=== PATIENT | female | born 1970 | race Caucasian/White ===

== ENCOUNTER 2020-03-07 11:36 | Outpatient (CLI) | payer BC, SELFPAY ==
[2020-03-08 14:19] LABS: SARS-CoV-2 RNA PCR Negative
== END 2020-03-07 11:37 | disposition home or self-care (01) ==
LOC: CHSLAB 11:38
PROVIDERS: PCP Family Medicine; Visit Provider Family Medicine
DX: Z20.828 Contact with and (suspected) exposure to other viral communicable diseases (principal)
CPT/HCPCS: 87635; C9803; U0003

== ENCOUNTER 2020-03-10 14:20 | Outpatient (CLI) | payer BC, SELFPAY ==
--- NOTE | ~2020-03-10 | MM_ITS ---
EXAMINATION: MM screening mello BI w edy HISTORY: Screening mammogram TECHNIQUE: Craniocaudal and mediolateral oblique 3-D tomosynthesis images were obtained and synthetic 2-D images were generated. CAD analysis was submitted and interpreted. COMPARISON: 02/27/2018, 12/25/2015, 11/14/2014 bilateral digital screening mammogram examinations BREAST PARENCHYMAL COMPOSITION: There are scattered areas of fibroglandular density. FINDINGS: Stable benign-appearing bilateral axillary tail lymph nodes. There is no evidence of suspic ious mass, calcification, or architectural distortion to suggest malignancy in either breast. There h as been no suspicious interval change. IMPRESSION: 1. No mammographic evidence of malignancy. 2. Recommend routine screening mammography in one year. BI-RADS Category 2: Benign finding(s). Reviewed, dictated and finalized at location A.
== END 2020-03-10 14:21 | disposition home or self-care (01) ==
LOC: ANHIMG 14:24
PROVIDERS: PCP Family Medicine; Visit Provider Nurse Practitioner Obstetrics & Gynecology
DX: Z12.31 Encounter for screening mammogram for malignant neoplasm of breast (principal)
CPT/HCPCS: 77063; 77067

== ENCOUNTER 2020-04-20 10:23 | Outpatient (CLI) | payer BC, SELFPAY ==
[2020-04-21 01:34] LABS: SARS-CoV-2 RNA PCR Negative
== END 2020-04-20 10:24 | disposition home or self-care (01) ==
LOC: CHSLAB 10:30
PROVIDERS: PCP Family Medicine; Visit Provider Family Medicine
DX: R05 Cough (principal); Z20.828 Contact with and (suspected) exposure to other viral communicable diseases
CPT/HCPCS: 87635; C9803; U0003

== ENCOUNTER 2020-06-23 01:54 | Outpatient (CLI) | payer BC, SELFPAY ==
[2020-06-23 19:10] LABS: SARS-CoV-2 RNA PCR Negative
== END 2020-06-23 01:55 | disposition home or self-care (01) ==
LOC: ANHCOVIDDT 01:55
PROVIDERS: PCP Family Medicine; Visit Provider Internal Medicine Gastroenterology
DX: Z01.812 Encounter for preprocedural laboratory examination (principal); Z20.828 Contact with and (suspected) exposure to other viral communicable diseases
CPT/HCPCS: 87635; C9803; U0003

== ENCOUNTER 2020-06-26 00:55 | Day surgery (SDC) | payer BC, SELFPAY ==
[2020-06-19 13:40] VITALS: BMI 36.3
[2020-06-26 06:26] VITALS: BP 131/51; PULSE 76; RESP 16; TEMP 35.8; O2SAT 96
[2020-06-26] MEDS: LACTATED RINGERS 1,000 ML 150 ML IV CONT (06:37)
--- NOTE | 2020-06-26 06:47 | WPDANESEPPF ---
Anes - Initial Pre Proc Eval Procedure: Operation Date: 06/26/20 07:30 Proposed Procedures p Screening Colonoscopy - Helder Velasco MD Date/Time: 06/26/20 06:47 Surgeon: Helder Velasco MD Pre Op Diagnosis: Neoplasm Screening Patient Data Age: 49 Gender: F Height: 1.8 m Weight: 119 kg Last Vital Signs Temp 35.8 C L 06/26/20 06:26 Pulse 76 06/26/20 06:26 Resp 16 06/26/20 06:26 BP 131/51 L 06/26/20 06:26 Pulse Ox 96 06/26/20 06:26 Allergies Allergy/AdvReac Type Severity Reaction Status Date / Time No Known Allergies Allergy Verified 06/26/20 06:25 Home Medications Medication Instructions Recorded Confirmed Type duloxetine 60 mg PO DAILY 06/19/20 06/26/20 History gabapentin 300 mg PO TID 06/19/20 06/26/20 History ibuprofen 800 mg PO Q6H PRN 06/19/20 06/26/20 History naproxen sodium [Aleve] 440 mg PO Q12H PRN 06/19/20 06/26/20 History tramadol See Rx Instructions .ROUTE 06/19/20 06/26/20 History .COMPLEX PRN varenicline [Chantix] 1 mg PO BID 06/19/20 06/26/20 History Patient hx anesthesia problems: none Family hx anesthesia problems: none PMFSH Past Medical History Medical History (Updated 06/26/20 @ 06:48 by Home Hargrove MD) Back pain Depression Obesity Social History Social History Smoking packs per day: 0.75 Smoking cigarettes per day: 15.0 Years smoked: 35 Smoking pack-years: 26.25 Smoking status: Former smoker Tobacco type: cigarettes Alcohol intake: current Drinks per week: 0 Alcohol use details: 2 TIMES PER YEAR Substance use: never Substance use type: does not use Living arrangements: with family Spiritual care concerns: No Anes - Eval Final PreProcedure Day of Procedure 06/26/20 06:47 Patient weight: obese Heart: regular rate and rhythm Lungs: clear to auscultation and normal air movement Airway: Mallampati scale class II Neurological: alert and oriented Last oral intake: >/= 8 hours ASA classification: III Emergent: no Anesthetic plan: proceed Anesthesia type and monitoring: general GIVS Informed Consent: The patient's anesthetic plan and its attendant risks and benefits were discussed with the patient/family/POA. Questions were solicited and answers provided to the satisfaction of the patient/family/POA.
--- NOTE | 2020-06-26 08:14 | WPDGICN ---
Assessment and Plan Assessment and plan (1) Encounter for screening colonoscopy: Code(s): Z12.11 - Encounter for screening for malignant neoplasm of colon Status: Acute Assessment and Plan: At age 49 patient presents for screening colonoscopy. This report follow separately. (2) Obesity: Code(s): E66.9 - Obesity, unspecified Status: Acute (3) Family history of colonic polyps: Code(s): Z83.71 - Family history of colonic polyps Status: Acute Assessment and Plan: Patient reports she bleeds both mother and father have had colon polyps in the past. GI Consult Note Consult date/time: 06/26/20 08:14 HPI: Deana Hannah is a 49 year old femaleSeen in evaluation at the request of Dr Fernandez. patient presents for screening colonoscopy. Because of age 49. She states that her current weight appetite bowel movements are normal. She reports there is a lot of cancer in her family. She thinks the both mother and father may have had colon polyps. Patient denies abdominal pain. She has had no bleeding. Her bowel habits are normal. Review of Systems Review of Systems: All systems reviewed & are unremarkable except as noted in HPI and below PMFSH Past Medical History Medical History (Updated 06/26/20 @ 08:16 by Helder Velasco MD) Back pain Depression Obesity Social History Social History Smoking packs per day: 0.75 Smoking cigarettes per day: 15.0 Years smoked: 35 Smoking pack-years: 26.25 Smoking status: Former smoker Tobacco type: cigarettes Alcohol intake: current Drinks per week: 0 Alcohol use details: 2 TIMES PER YEAR Substance use: never Substance use type: does not use Living arrangements: with family Spiritual care concerns: No Meds Home Medications and Allergies Home Medications Medication Instructions Recorded Confirmed Type duloxetine 60 mg PO DAILY 06/19/20 06/26/20 History gabapentin 300 mg PO TID 06/19/20 06/26/20 History ibuprofen 800 mg PO Q6H PRN 06/19/20 06/26/20 History naproxen sodium [Aleve] 440 mg PO Q12H PRN 06/19/20 06/26/20 History tramadol See Rx Instructions .ROUTE 06/19/20 06/26/20 History .COMPLEX PRN varenicline [Chantix] 1 mg PO BID 06/19/20 06/26/20 History Allergies Allergy/AdvReac Type Severity Reaction Status Date / Time No Known Allergies Allergy Verified 06/26/20 06:25 Vital Signs Vital Signs - 24 hr 06/26/20 06:26 Temperature 96.5 F L Pulse Rate 76 Respiratory Rate 16 Blood Pressure 131/51 L Pulse Oximetry 96 Exam Narrative: Exam Narrative: Physical exam reveals patient to be alert. Vital signs stable. HEENT exam unremarkable. Lungs are clear to auscultation and percussion. Heart is without murmur or extra sounds. abdominal exam is obese. Bowel sounds are present soft nontender with no hepatosplenomegaly. Digital external rectal exam normal.
[2020-06-26 08:16] VITALS: BP 119/73; PULSE 78; RESP 22; O2SAT 100
[2020-06-26 08:26] VITALS: BP 126/81; PULSE 79; RESP 18; O2SAT 96
[2020-06-26 08:36] VITALS: BP 130/91; PULSE 72; RESP 22; O2SAT 98
== END 2020-06-26 08:46 | disposition home or self-care (01) ==
PROVIDERS: PCP Family Medicine; Visit Provider Internal Medicine Gastroenterology
PROC: 0DJD8ZZ Inspection of Lower Intestinal Tract, Via Natural or Artificial Opening Endoscopic (ICD-10-PCS; CPT 45378; principal; 2020-06-26 07:30)
DX: Z12.11 Encounter for screening for malignant neoplasm of colon (principal); K63.5 Polyp of colon; K64.8 Other hemorrhoids; Z83.71 Family history of colonic polyps; Z87.891 Personal history of nicotine dependence; F32.9 Major depressive disorder, single episode, unspecified; E66.9 Obesity, unspecified; Z68.36 Body mass index [BMI] 36.0-36.9, adult
CPT/HCPCS: 45385; 88305; J2704; J7120

== ENCOUNTER → 2020-09-08 15:44 | Outpatient (CLI) | payer BC, SELFPAY ==
--- NOTE | ~2020-09-08 | CT_ITS ---
EXAMINATION: CT facial bones wo con DATE: 09/08/2020 16:04 INDICATION: Left jaw pain TECHNIQUE: Computed tomography (CT) of the facial bones and maxillofacial region was performed withou t intravenous contrast. Automated exposure control and iterative reconstruction technique were employ ed. Exam dose: 348.44 mGy-cm total exam DLP. COMPARISON: None. FINDINGS: There is an approximately 8 x 9 mm polyp or mucous retention cyst of the roof of the left m axillary sinus. The paranasal sinuses and mastoid air cells are otherwise normally developed and aera yrn. No facial fracture. The nasal bones, frontozygomatic sutures, orbital rims and maldonado, zygomatic arche s and remainder the facial bones are intact. No bone destruction is evident. Normal alignment at the temporomandibular joints. There is asymmetric left temporomandibular joint sp barbara narrowing and some articular erosive changes of the left mandibular condyle; otherwise no fractur e, dislocation or bone destruction of the mandible. Status post extraction of a posterior right mandibular molar tooth. IMPRESSION: No facial fracture or bone destruction Asymmetric left temporomandibular joint space narrowing and erosive changes of the head of the left m andibular condyle 9 mm polyp or mucous retention cyst of the medial roof of the left maxillary sinus Reviewed, dictated and finalized at Location A. 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
== END ==
PROVIDERS: PCP Family Medicine; Visit Provider Family Medicine
DX: R68.84 Jaw pain (principal); J32.0 Chronic maxillary sinusitis
CPT/HCPCS: 70486

== ENCOUNTER 2020-11-29 17:00 | Outpatient (CLI) | payer BC, SELFPAY ==
[2020-11-29 18:03] LABS: SARS-CoV-2 RNA PCR Negative (Negative)
== END 2020-11-29 17:01 | disposition home or self-care (01) ==
LOC: CHSLAB 17:03
PROVIDERS: PCP Family Medicine; Visit Provider Family Medicine
DX: R05 Cough (principal); Z20.822 Contact with and (suspected) exposure to COVID-19
CPT/HCPCS: C9803; U0003; U0005

== ENCOUNTER 2021-03-12 11:32 | Outpatient (CLI) | payer BC, SELFPAY ==
--- NOTE | 2021-04-05 16:50 | WPDHOMESLEEP ---
Sleep Study - Home Unattended Date of Study: 03/12/21 Ordering Provider: Kaleb Fernandez MD Interpreting Provider: Vida Gregorio MD Home Sleep Study Type: Apnea Link Air Height: 1.79 m Weight: 111.13 kg Body Mass Index: 34.6 Neck Circumference (inches): 18.5 [place]: 11 Reason for Sleep Study Restless sleep, disturbing dreams Sleep History Deana Hannah is a 50-year-old female who has very poor quality sleep. She wakes frequently during the night. She has disturbing dreams. She takes Benadryl for these problems. She does not feel rested in the morning and she is sleepy throughout the day but she does not feel tired at bedtime. She has chronic back pain that causes her discomfort while sleeping. She went through menopause at age 45 and her sleep worsened after that. 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 She does not awaken from sleep feeling short of breath. She occasionally awakens at night with heartburn, belching or coughing. She frequently snores only rarely loudly enough that others complain. She rarely has trouble sleeping with a cold. She does not wake up gasping for breath during the night. She does not sweat excessively at night. She frequently notices her heart pounding or beating irregularly at night. She rarely falls asleep during the day, never involuntarily never while driving. She does not have loss of muscle tone with strong emotion. She frequently has daytime difficulties due to excessive sleepiness. 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 She does not feel paralyzed on waking or falling asleep. She frequently has vivid dreamlike scenes upon awakening or falling asleep. She does not feel afraid to go to sleep. She constantly has nightmares, constantly remembers her dreams. She frequently has racing thoughts. She occasionally feels sad, depressed and anxious. She occasionally has muscular tension. She occasionally notices parts of her body jerking. She occasionally kicks at night. She rarely has crawling and aching feelings in her legs. She occasionally has leg pain at night. She rarely has morning jaw pain. She occasionally grinds her teeth during sleep. She frequently has bothered by pain during the day, occasionally awakened by pain at night. She frequently wakes up feeling stiff in the morning with sore achy muscles. She rarely wakes up with pain in the neck and spine. She has fatigue and insomnia. She has depression treated with duloxetine. She reports a 30 lb weight loss in the last year. Normal bedtime is between 10:00 p.m. and 11:00 p.m. taking anywhere between 15 minute and 1 hour to fall asleep. She wakes up 4-6 times during the night. When she awakens she may go urinate, get a drink of water and just change her position. It takes her anywhere between 5 minutes and 1 hour to return to sleep. Her morning wake time is 6:30 a.m.. On the weekends, she may go to bed an hour later, between 11:00 p.m. and 12 midnight still awakens at 6:30 a.m.. She estimates getting anywhere between 6 and 9 hours of sleep. She does not take naps. A short nap may be refreshing. She is usually drowsy in the morning for an hour. She feels better in the evening compared to the morning. Habits: Tobacco 1/2 pack per day. Caffeine 2 servings a day. No alcohol or recreational drugs. [facility] Past Medical History Medical History (Updated 04/05/21 @ 17:00 by Vida Gregorio MD) Back pain Depression Obesity Pre-diabetes Surgical History Surgical History (Updated 04/05/21 @ 16:57 by Vida Gregorio MD) Previous back surgery spinal fusion 2018 Status post Status post carpal tunnel release Status post tonsillectomy Social History Social History Smoking packs per day: 0.75 Smoking cigarettes per day: 15.0 Years smoked: 35 Smoking pack-years: 26.25 Smoking status: Former smoker Tobacco type: cigarettes Alcohol intake: current Drinks per week: 0 Al
[2021-04-05 17:04] VITALS: BMI 34.6
== END 2021-03-13 12:00 | disposition home or self-care (01) ==
LOC: ANHCSM 11:33
PROVIDERS: PCP Family Medicine; Visit Provider Family Medicine
DX: G47.33 Obstructive sleep apnea (adult) (pediatric) (principal)
CPT/HCPCS: 95806

== ENCOUNTER 2021-03-29 08:53 | Outpatient (CLI) | payer BC, SELFPAY ==
--- NOTE | ~2021-03-29 | MM_ITS ---
EXAMINATION: MM screening mello BI w edy HISTORY: Screening mammogram TECHNIQUE: Craniocaudal and mediolateral oblique 3-D tomosynthesis images were obtained and synthetic 2-D images were generated. CAD analysis was submitted and interpreted. COMPARISON: 03/10/2020, 02/27/2018, 12/25/2015 bilateral digital screening mammogram examinations BREAST PARENCHYMAL COMPOSITION: The breasts are almost entirely fatty. FINDINGS: Stable axillary tail lymph nodes. There is no evidence of suspicious mass, calcification, o r architectural distortion to suggest malignancy in either breast. There has been no suspicious inter jeannine change. IMPRESSION: 1. No mammographic evidence of malignancy. 2. Recommend routine screening mammography in one year. BI-RADS Category 2: Benign finding(s). Reviewed, dictated and finalized at location A.
== END 2021-03-29 08:54 | disposition home or self-care (01) ==
LOC: ANHIMG 08:56
PROVIDERS: PCP Family Medicine; Visit Provider Nurse Practitioner Obstetrics & Gynecology
DX: Z12.31 Encounter for screening mammogram for malignant neoplasm of breast (principal)
CPT/HCPCS: 77063; 77067

== ENCOUNTER 2021-04-18 21:24 | Emergency (ER) | payer BC, SELFPAY ==
--- NOTE | ~2021-04-18 | XR_ITS ---
EXAMINATION: XR chest 2V DATE: 04/19/2021 04:28 INDICATION: Epigastric pain TECHNIQUE: PA and lateral views of the chest were obtained. COMPARISON: CT abdomen and pelvis dated 04/19/2021 at 12:17 AM FINDINGS: A few scattered linear opacities in the bilateral mid and lower lung zones and favor atelectasis over pneumonia. No pleural effusion or pneumothorax.. The cardiomediastinal silhouette is normal. Mild th oracic spondylosis. IMPRESSION: 1. Mild scattered linear discoid atelectasis in the mid and lower lung zones. Reviewed, dictated and finalized at location A.
--- NOTE | ~2021-04-18 | CT_ITS ---
EXAMINATION: CT abdomen pelvis w con DATE: 04/19/2021 00:24 INDICATION: Epigastric abdominal pain, severe nausea TECHNIQUE: Computed tomography (CT) of the abdomen and pelvis was performed with 100 cc Omnipaque 350 intravenous contrast. Automated exposure control and iterative reconstruction technique were employe d. Exam dose: 1352.64 mGy-cm total exam DLP. COMPARISON: None. FINDINGS: There is minimal atelectasis in the lower lung zones. Normal heart size. No pericardial or pleural effusion. Diffuse hepatic steatosis. No hepatic, splenic, pancreatic, and adrenal or renal space-occupying mass lesion. The gallbladder is present. No bile duct or pancreatic duct dilatation. No urinary tract calculus or hydroureteronephrosis. The urinary bladder and uterus unremarkable. Status post bilateral tubal ligation. Normal caliber of the abdominal aorta. No intraperitoneal or retroperitoneal or pelvic mass lesion or adenopathy or ascites. Normal appendix. No bowel obstruction, bowel wall thickening, pneumatosis or intraperitoneal free air . Status post posterior surgical fusion at L4-5. Severe degenerative disc disease and mild retrolisthes is at L5-S1. No suspicious osteolytic or osteoblastic lesions. IMPRESSION: Diffuse hepatic steatosis Status post bilateral tubal ligation Status post posterior surgical spinal fusion at L4-5 Reviewed, dictated and finalized at Location A. Reviewed, dictated and finalized at location B.
--- NOTE | 2021-04-18 21:27 | ECG_ITS ---
Measurements Intervals [place] Rate: 79 P: 48 NH: 135 QRS: 7 QRSD: 108 T: 32 QT: 371 QTc: 426 Interpretive Statements SINUS RHYTHM BASELINE ARTIFACT- I, II, III, AVR, AVL, AVF, V1, V4-V6 NORMAL ECG Electronically Signed On 04-19-2021 8:25:08 CDT by Paco Amaya D.O.
--- NOTE | 2021-04-18 21:29 | ED.CHESTPAIN ---
HPI - Chest Pain General Chief Complaint: Chest Pain Stated Complaint: chest pain Time Seen by Provider: 04/18/21 21:29 Source: patient Mode of arrival: ambulatory Limitations: no limitations History of Present Illness HPI narrative: 50-year-old woman with a history of type 2 diabetes comes in today complaining upper abdomen and lower chest pain that has been present for less than an hour prior to presentation. She describes it as squeezing. Patient states that it started suddenly while she was at rest. She has some nausea, shortness of breath, and sweatiness. She denies prior similar symptoms and has had no prior cardiac evaluations. She is a former smoker. MD complaint: chest pain Onset (ago): minute(s) (20-30) Timing of current episode: constant and still present Prior episodes: No Onset: during rest Pain location: substernal and epigastric Pain radiation: none Severity: severe Quality: other (Squeezing) Relieving factors: nothing Exacerbating factors: nothing Associated symptoms: nausea, diaphoresis and dyspnea Treatment prior to arrival: none Risk Factors Coronary artery disease risk factors: diabetes and smoking history Thoracic aortic dissection risk factors: none Related Data On Oral Contraceptives: No Home Medications Medication Instructions Recorded Confirmed duloxetine 60 mg PO DAILY 06/19/20 04/18/21 tramadol See Rx Instructions .ROUTE 06/19/20 04/18/21 .COMPLEX PRN gabapentin 600 mg PO TID 04/18/21 04/18/21 hydrocodone-acetaminophen 1 tablet PO TID 04/18/21 04/18/21 metformin 500 mg PO TID 04/18/21 04/18/21 methocarbamol 750 mg PO TID 04/18/21 04/18/21 Allergies Allergy/AdvReac Type Severity Reaction Status Date / Time No Known Allergies Allergy Verified 06/26/20 06:25 Review of Systems Review of Systems: All systems reviewed & are unremarkable except as noted in HPI and below Constitutional: Constitutional: Denies chills and Denies fever(s) Eyes: Eyes: Denies change in vision and Denies photophobia ENT: Denies nasal congestion and Denies sore throat Cardiovascular: Cardiovascular: Reports chest pain and Denies radiating jaw, neck or arm pain Respiratory: Respiratory: Denies cough, Reports dyspnea and Denies wheezing Gastrointestinal: Gastrointestinal: Reports abdominal pain, Denies diarrhea, Reports nausea and Denies vomiting Genitourinary: Genitourinary: Denies nocturia and Denies dysuria Musculoskeletal: Musculoskeletal: Denies back pain, Denies arthralgias and Denies joint swelling Integumentary/Breasts: Skin/Breast: Denies pruritus, Denies erythema and Denies rash Neurologic: Denies vertigo, Denies dizziness, Denies syncope and Denies weakness Allergic/Immunologic: Allergic/Immunologic: Denies lip swelling and Denies throat swelling PMFSH Past Medical History Medical History Back pain Depression Obesity Pre-diabetes Surgical History Surgical History Previous back surgery spinal fusion 2018 Status post Status post carpal tunnel release Status post tonsillectomy Social History Social History Smoking packs per day: 0.75 Smoking cigarettes per day: 15.0 Years smoked: 35 Smoking pack-years: 26.25 Smoking status: Former smoker Tobacco type: cigarettes Alcohol intake: current Drinks per week: 0 Alcohol use details: 2 TIMES PER YEAR Substance use: never Substance use type: does not use Spiritual care concerns: No Exam Const: General: healthy appearing and alert Orientation/consciousness: patient oriented x3 Limitations: no limitations Other: Moderate to severe distress HENMT: Head: normal to inspection Face and sinus: normal facial exam Mouth: Yes moist mucous membranes Throat: posterior oropharynx normal Eyes: Conjunctivae: conjunctivae normal Pupils: Eq
[2021-04-18 21:34] VITALS: BP 160/99; PULSE 90; RESP 24; TEMP 37; O2SAT 100
[2021-04-18] MEDS: ASPIRIN 81 MG CHEWABLE TABLET 324 MG PO (21:51)
[2021-04-18] MEDS: ONDANSETRON INJ 4 MG/2 ML VIAL IV PUSH (21:51)
[2021-04-18] MEDS: HYDROmorphone HCL INJ (*CRX) 2 MG/ML VIAL 0.5 MG IV PUSH (21:51)
[2021-04-18 22:00] VITALS: BP 128/70; PULSE 70; RESP 18; O2SAT 99
[2021-04-18 22:11] LABS: Hematocrit 44.4 % (35.0-49.0); Hemoglobin 14.4 g/dL (12.0-15.0); Mean Corpuscular HGB Conc 32.4 g/dL (32.0-36.0); Mean Corpuscular Hemoglobin 28.2 pg (27.0-31.0); Mean Corpuscular Volume 86.9 fL (78.0-102.0); Mean Platelet Volume 9.8 fl (9.2-11.8); Platelet Count Result 346 K/mm3 (150-420); Red Blood Count 5.11 M/mm3 (4.20-5.40); Red Cell Distribution Width 13.4 % (11.6-14.4); White Blood Count 12.3 K/mm3 (4.8-10.8)
[2021-04-18 22:25] LABS: D Dimer 0.36 mg/L (0.19-0.50)
[2021-04-18 22:27] LABS: Band Neutrophils Percent 0 % (0-6); Basophils Absolute Manual 0.12 K/mm3 (0-0.1); Basophils Percent Manual 1 % (0-1); Eosinophils Absolute Manual 0.49 K/mm3 (0.02-0.5); Eosinophils Percent Manual 4 % (1-6); Lymphocytes Absolute Manual 4.42 K/mm3 (1.1-4.5); Lymphocytes Percent Manual 36 % (18-44); Monocytes Absolute Manual 0.98 K/mm3 (0.1-0.90); Monocytes Percent Manual 8 % (3-9); Neutrophils Absolute Manual 6.27 K/mm3 (1.7-7.2); Neutrophils Percent Manual 51 % (46-73); Platelet Estimate Adequate (Adequate)
[2021-04-18 22:33] LABS: Alanine Aminotransferase 40 U/L (14-59); Albumin Level 3.5 g/dL (3.4-5.0); Alkaline Phosphatase 95 U/L (46-116); Anion Gap 10 mmol/L (8-16); Aspartate Amino Transferase 18 U/L (15-37); Bilirubin,Total 0.2 mg/dL (0.00-1.00); Blood Urea Nitrogen 16 mg/dL (7-18); Calcium 9.5 mg/dL (8.5-10.1); Carbon Dioxide 25 mmol/L (21-32); Chloride 107 mmol/L (98-108); Estimated CRCL calculation 83 ml/min; Estimated Glomerular Filt Rate > 60; Glucose 122 mg/dL (70-99); Lipase 70 U/L (73-393); NT Pro B Type Natriuretic Pept 103 pg/mL (0-125); Osmolality Calculated 296 mOsm/kg (285-295); Potassium 3.9 mmol/L (3.5-5.1); Sodium 142 mmol/L (136-145); Total Protein 6.7 g/dL (6.4-8.2); Troponin I 4.8 ng/L (0.00-60.4)
[2021-04-18 22:39] LABS: SARS-CoV-2 Ag Negative (Negative)
[2021-04-18 22:40] VITALS: BP 131/61; PULSE 85; RESP 16; TEMP 36.6; O2SAT 99
[2021-04-18 23:10] VITALS: BP 110/70; PULSE 74; RESP 18; O2SAT 98
--- NOTE | 2021-04-18 23:49 | PC.NURSE ---
IV infiltrated, EULALIO. leyda applied
[2021-04-18 23:55] VITALS: BP 111/60; PULSE 68; RESP 16; TEMP 36.6; O2SAT 99
--- NOTE | 2021-04-19 00:11 | PC.NURSE ---
new IV LAC #[id number]
[2021-04-19 00:50] LABS: Add Urine Microscopic? YES; Appearance Urine Clear (Clear); Bilirubin Urine Negative (Negative); Blood Urine Negative (Negative); Color Urine Light Yellow (Yellow); Glucose Urine UA Negative (Negative); Ketones Urine Trace (Negative); Leukocyte Esterase Ur Trace LEU/UL (Negative); Nitrate Urine Positive (Negative); Protein Urine Negative (Negative); Specific Grav Ur 1.025 (1.010-1.020); Urobilinogen Urine 0.2 mg/dL (0.2-1.0)
[2021-04-19 00:56] LABS: Bacteria Urine 1+ /hpf; Mucus Urine Rare /lpf; RBC Urine 0-2 /hpf (0-2); Squamous Epithelial Cell Urine Rare /hpf (Few); WBC Urine 16-20 /hpf (0-3)
[2021-04-19 01:34] LABS: Troponin I 6.4 ng/L (0.00-60.4)
[2021-04-19 02:00] VITALS: BP 112/70; PULSE 78; RESP 18; O2SAT 99
[2021-04-19] MEDS: ACETAMINOPHEN 500 MG TABLET 1000 MG PO (02:55)
[2021-04-19 02:57] VITALS: BP 122/70; PULSE 70; RESP 16; TEMP 36.6; O2SAT 99
[2021-04-19 03:47] LABS: Troponin I 6.3 ng/L (0.00-60.4)
--- NOTE | 2021-04-19 04:10 | PC.NURSE ---
reviewing plan of care with patient
[2021-04-19 05:35] VITALS: BP 128/70; PULSE 88; RESP 18; TEMP 36.6; O2SAT 98
== END 2021-04-19 05:44 | disposition home or self-care (01) ==
PROVIDERS: Emergency Provider Emergency Medicine; PCP Family Medicine
DX: R07.89 Other chest pain (principal); R10.13 Epigastric pain; M54.9 Dorsalgia, unspecified; F32.9 Major depressive disorder, single episode, unspecified; R73.03 Prediabetes; Z98.1 Arthrodesis status; Z20.822 Contact with and (suspected) exposure to COVID-19
CPT/HCPCS: 36415; 71046; 74177; 80053; 81001; 83690; 83880; 84484; 85025; 85380; 87077; 87086; 87088; 87186; 87426; 93005; 96374; 96375; 99283; 99284; A9270; C9803; J1170; J2405; Q9967

== ENCOUNTER 2021-07-31 12:14 | Outpatient (CLI) | payer OTHER, SELFPAY ==
[2021-07-31 13:01] LABS: SARS-CoV-2 Ag Negative (Negative)
== END 2021-07-31 12:15 | disposition home or self-care (01) ==
LOC: CHSLAB 12:17
PROVIDERS: PCP Family Medicine; Visit Provider Family Medicine
DX: R05.9 Cough, unspecified (principal); Z20.822 Contact with and (suspected) exposure to COVID-19
CPT/HCPCS: 87426; C9803

== ENCOUNTER → 2021-09-24 09:26 | Outpatient (CLI) | payer OTHER, SELFPAY ==
--- NOTE | ~2021-09-24 | XR_ITS ---
EXAMINATION: XR lumbar spine 2-3V EXAM DATE: 09/24/2021 09:44 INDICATION: Radiculopathy, lumbosacral region . TECHNIQUE: Lumber spine frontal, lateral, lateral L5-S1 projections for interpretation. There is no prior study for comparison. FINDINGS: There is mild lumbar dextro scoliosis. L4-5 posterior fusion hardware. Suspicion of lucenc y surrounding the L5 pedicular screws, evidence of loosening. Moderate to severe disc disease at L5- S1, with a few millimeters of retrolisthesis. There is 2-3 mm retrolisthesis L3 on L4. Mild to modera te disc disease L1-L5. Mild to moderate lumbar facet arthropathy. IMPRESSION: 1. L4-5 posterior fusion with lucency suspected around L5 pedicular screws, could indicate loosening . 2. L5-S1 moderate to severe disc disease. 3. Mild dextroscoliosis. Reviewed, dictated and finalized at location A. LER UPPER IMPRESSION: 1. L4-5 posterior fusion with lucency suspected around L5 pedicular screws, co uld indicate loosening. 2. L5-S1 moderate to severe disc disease. 3. Mild dextroscoliosis.
== END ==
PROVIDERS: PCP Family Medicine; Visit Provider Pain Medicine Interventional Pain Medicine
DX: M47.27 Other spondylosis with radiculopathy, lumbosacral region (principal); M41.9 Scoliosis, unspecified
CPT/HCPCS: 72100

== ENCOUNTER 2021-12-03 10:06 | Emergency (ER) | payer OTHER, SELFPAY ==
[2021-12-03 10:33] VITALS: BP 150/77; PULSE 82; RESP 16; TEMP 36.3; O2SAT 97
--- NOTE | 2021-12-03 10:33 | ED.UPPEXIN ---
HPI - Extremity Injury (Upper) General Chief Complaint: Extremity Injury, Upper Stated Complaint: SHOULDER PAIN Time Seen by Provider: 12/03/21 10:33 History of Present Illness HPI narrative: 50-year-old female patient is here with complaints of pain in the left shoulder that started after she lifted of 15 lb cart above her shoulder level to put in the back of the car yesterday. The patient has had constant nagging pain in the entire shoulder mostly on top and across to the neck area since then. She has tried Tylenol and Aleve but no relief. .Denies any association of numbness or tingling of the hand other than the normal for her carpal Tunnel syndrome. Denies any muscular weakness of the hand or the forearm. Denies any elbow or wrist pain. Patient relates that she has significant arthritis of the back and has had some spinal surgery in the past. Related Data Home Medications Medication Instructions Recorded Confirmed duloxetine 60 mg PO DAILY 06/19/20 12/03/21 tramadol See Rx Instructions .ROUTE 06/19/20 12/03/21 .COMPLEX PRN gabapentin 600 mg PO TID 04/18/21 12/03/21 hydrocodone-acetaminophen 1 tablet PO TID 04/18/21 12/03/21 metformin 500 mg PO TID 04/18/21 12/03/21 methocarbamol 750 mg PO TID 04/18/21 12/03/21 Allergies Allergy/AdvReac Type Severity Reaction Status Date / Time No Known Allergies Allergy Verified 06/26/20 06:25 Review of Systems Review of Systems: All systems reviewed & are unremarkable except as noted in HPI and below Musculoskeletal: Musculoskeletal: Reports no additional musculoskeletal complaints, Denies arthralgias and Denies joint swelling [facility] Past Medical History Medical History Back pain Depression Obesity Pre-diabetes Surgical History Surgical History Previous back surgery spinal fusion 2018 Status post Status post carpal tunnel release Status post tonsillectomy Social History Social History Smoking packs per day: 0.75 Smoking cigarettes per day: 15.0 Years smoked: 35 Smoking pack-years: 26.25 Smoking status: Former smoker Tobacco type: cigarettes Alcohol intake: current Drinks per week: 0 Alcohol use details: 2 TIMES PER YEAR Substance use: never Substance use type: does not use Spiritual care concerns: No Exam Narrative: Alert female patient in moderate discomfort from pain. Vital signs are stable. Patient is afebrile. HEENT is normal. Neck is supple and there is no midline tenderness. Chest wall is nontender. Breath sounds are audible bilaterally. Heart tones are regular. Left shoulder shows no deformity or swelling. The patient seems to be guarding it a little more than usual. She does have somewhat limited range of motion in extension and rotation. There is significant tenderness over the supraspinatus area on palpation. No tenderness over the deltoid. No tenderness along the joint line of the shoulder or the acromioclavicular joint. The rest of the left upper extremity appears to be normal in contour with good range of motion at the elbow and the wrist and at the interphalangeal joints. No distal neurovascular deficit. Course Course Emergency Course: Patient was offered an x-ray of her cervical spine as well as left shoulder however she declines it at this time. The pain management has been discussed with her with the use of ketorolac and a muscle relaxant and she has opted for that. The patient has also been advised to follow-up with the primary care physician or the orthopedist if her pain should persist. Have suggested the patient that she may need an ultrasound at some point to check the status of her muscles surrounding her shoulder joint area especially if the pain persists. She will be discharged home on oral ketorolac 10 mg 3 times a day and me
[2021-12-03] MEDS: KETOROLAC (*BKC) 60 MG/2 ML VIAL IM (10:52)
== END 2021-12-03 11:15 | disposition home or self-care (01) ==
PROVIDERS: Emergency Provider Emergency Medicine; PCP Family Medicine
DX: M25.512 Pain in left shoulder (principal)
CPT/HCPCS: 96372; 99283; A4565; J1885

== ENCOUNTER 2022-01-16 16:09 | Outpatient (CLI) | payer OTHER, SELFPAY ==
[2022-01-16 17:19] LABS: SARS-CoV-2 RNA PCR Positive (Negative)
== END 2022-01-16 16:10 | disposition home or self-care (01) ==
LOC: CHSLAB 16:12
PROVIDERS: PCP Family Medicine; Visit Provider Family Medicine
DX: U07.1 COVID-19 (principal); J06.9 Acute upper respiratory infection, unspecified
CPT/HCPCS: C9803; U0003; U0005

== ENCOUNTER 2022-01-22 11:43 | Emergency (ER) | payer OTHER, SELFPAY ==
--- NOTE | ~2022-01-22 | XR_ITS ---
EXAMINATION: XR chest 1V portable INDICATION: COVID positive, fever and body aches TECHNIQUE: Portable AP chest at 1242 hours COMPARISON: 04/19/2021 FINDINGS: The lungs are free of acute opacities. No pleural effusion or pneumothorax. The cardiomedia stinal silhouette is normal. IMPRESSION: 1. No acute cardiopulmonary abnormality. Reviewed, dictated and finalized at location B.
[2022-01-22 11:47] VITALS: BP 149/70; PULSE 95; RESP 18; TEMP 36.6; O2SAT 97
[2022-01-22 12:22] VITALS: O2SAT 97
--- NOTE | 2022-01-22 12:40 | ED.URI ---
HPI - URI/Sore Throat General Chief Complaint: Upper Respiratory Infection Stated Complaint: COVID positive - cough and fever Time Seen by Provider: 01/22/22 12:22 History of Present Illness HPI Narrative: 51-year-old female presents the emergency room for evaluation of generalized weakness and recent COVID dx. patient states that she received both initial shots and double boosted. Began experiencing generalized weakness, cough and low-grade fevers last week. Patient was seen in her primary care's office last week and was started on Paxlovid. Patient states she now feels worse after taking the antivirals. Related Data Home Medications Medication Instructions Recorded Confirmed duloxetine 30 mg capsule,delayed 60 mg PO DAILY 06/19/20 12/03/21 release tramadol 50 mg tablet See Rx Instructions .Route 06/19/20 12/03/21 .COMPLEX PRN Pain gabapentin 600 mg tablet 600 mg PO TID 04/18/21 12/03/21 hydrocodone 7.5 mg-acetaminophen 1 tablet PO TID 04/18/21 12/03/21 325 mg tablet metformin 500 mg tablet 500 mg PO TID 04/18/21 12/03/21 methocarbamol 750 mg tablet 750 mg PO TID 04/18/21 12/03/21 Allergies Allergy/AdvReac Type Severity Reaction Status Date / Time No Known Allergies Allergy Verified 01/22/22 12:25 Review of Systems Review of Systems: CONSTITUTIONAL: Reports fever, chills, or sweats. EYES: Denies visual changes, redness, or discharge. ENT: Denies rhinorrhea, congestion, sore throat, or otalgia. CARDIOVASCULAR: Denies chest pain, palpitations, or edema. RESPIRATORY: Reports cough GASTROINTESTINAL: Denies abdominal pain, nausea, vomiting, or diarrhea. GENITOURINARY: Denies dysuria or hematuria. SKIN: Denies rash or itching. MUSCULOSKELETAL: Denies back pain, joint pain, or myalgia. NEUROLOGIC: Reports headache, generalized weakness PSYCHIATRIC: Denies anxiety or depression. [facility] Past Medical History Medical History Back pain Depression Obesity Pre-diabetes Surgical History Surgical History Previous back surgery spinal fusion 2018 Status post Status post carpal tunnel release Status post tonsillectomy Social History Social History Smoking packs per day: 0.75 Smoking cigarettes per day: 15.0 Years smoked: 35 Smoking pack-years: 26.25 Smoking status: Former smoker Tobacco type: cigarettes Alcohol intake: current Drinks per week: 0 Alcohol use details: 2 TIMES PER YEAR Substance use: never Substance use type: does not use Spiritual care concerns: No Exam Narrative: GENERAL: Well-appearing, well-nourished, no physical limitations, and in no acute distress. HEAD: Normocephalic, atraumatic. EYES: Conjunctivae normal, PERRLA and EOMI. ENT: External nose normal, Nares clear, no rhinorrhea or epistaxis. Mucous membranes moist. Oropharynx without tonsillar hypertrophy exudate or other lesions. External ears normal, bilateral TMs normal bilaterally CHEST: Clear to auscultation. No respiratory distress. No wheezes rales or rhonchi. No tenderness. HEART: Regular rate and rhythm. No murmur heard. Normal peripheral pulses. BACK: No CVA tenderness; No cervical/thoracic/lumbar tenderness, step-offs, bony abnormality; FROM EXTREMITIES: Normal range of motion. No edema. No clubbing or cyanosis SKIN: Warm, dry, no rash. No noted wounds NEURO: No focal deficits. Alert and oriented x3. MAEW. CN's II-XI intact bilaterally, normal gait PSYCH: Cooperative. Normal mood and affect. Course Vital Signs Vital signs: Vital Signs Temperature 36.6 C 01/22/22 11:47 Pulse Rate 95 01/22/22 11:47 Respiratory Rate 18 01/22/22 11:47 Blood Pressure 149/70 H 01/22/22 11:47 Pulse Oximetry 97 01/22/22 11:47 Oxygen Delivery Room Air 01/22/22 11:47 Temperature 36.6 C 01/22/22 11:47 Pulse Rate 95
== END 2022-01-22 13:36 | disposition home or self-care (01) ==
PROVIDERS: Emergency Provider Nurse Practitioner Family; PCP Family Medicine
DX: U07.1 COVID-19 (principal); R73.03 Prediabetes; E66.9 Obesity, unspecified; Z68.36 Body mass index [BMI] 36.0-36.9, adult; Z79.84 Long term (current) use of oral hypoglycemic drugs
CPT/HCPCS: 71045; 99283

== ENCOUNTER → 2022-01-30 15:36 | Outpatient (CLI) | payer OTHER, SELFPAY ==
--- NOTE | ~2022-01-30 | MR_ITS ---
EXAMINATION: MR lumbar spine wo con DATE: 01/30/2022 16:07 INDICATION: Lumbar radiculopathy TECHNIQUE: Magnetic resonance imaging (MRI) of the lumbar spine was performed without intravenous con trast. Sequences included sagittal T2-weighted FSE, sagittal T2-weighted FS FSE, sagittal T1-weighted FSE, and axial T2-weighted FSE. COMPARISON: Radiographs dated 10/04/2021 FINDINGS: 6 degrees lumbar dextrocurvature. Posterior spinal fusion with bilateral vertical jannet and pedicle scr ew fixation at L4-L5 with 5 mm right lateral listhesis of L4 on L5. 3 mm retrolisthesis L5 on S1. 2 m m retrolisthesis L2 on L3 and L3 on L4. Minimal likely physiologic anterior wedging at T12 and L1. Sm all Schmorl's nodes along both the endplate surrounding the T11-T12, T12-L1 and L1-L2 disc spaces. Ma rrow signal is normal. Moderate left-sided and severe right-sided disc height loss at L5-S1. Mild dis c height loss at T11-T12, L2-L3, L3-L4 and L4-L5. There are annular fissures at L1-L2 through L3-L4. The conus medullaris terminates at L1-L2. There is normal signal in the caudal spinal cord. Mild post operative scarring in the soft tissues posterior to the mid to lower lumbar spine. Paravertebral soft tissues are otherwise unremarkable. The following disc levels are specifically discussed: T12-L1: The disc does not extend beyond the endplate margin. There is mild to moderate bilateral face t joint osteoarthritis. There is no neural foraminal stenosis. There is no central canal stenosis. L1-L2: Disc is mildly bulging with superimposed annular fissure and small central disc extrusion with disc material extending couple millimeters cephalad and caudal to the level of the endplates. There is mild bilateral facet joint osteoarthritis. There is no neural foraminal stenosis. There is mild ce ntral canal stenosis. L2-L3: Disc is mildly bulging. There is mild bilateral facet joint osteoarthritis. There is mild bila teral neural foraminal stenosis. There is mild central canal stenosis. L3-L4: Disc is mildly bulging. There is mild to moderate bilateral facet joint osteoarthritis. There is moderate left and mild to moderate right neural foraminal stenosis. There is mild central canal st enosis. L4-L5: Disc is mildly bulging. Posterior spinal fusion including posterior decompression with bilater al hemilaminotomies and resection of the ligamentum flavum on both the left and right. There is mild left and mild to moderate right neural foraminal stenosis. There is no central canal stenosis. L5-S1: Disc is mildly bulging. There is mild left and mild to moderate right facet joint osteoarthrit is. There is mild left and moderate right neural foraminal stenosis. There is no central canal stenos is. IMPRESSION: 1. Mild lumbar dextrocurvature with moderate spondylosis. 2. L4-L5 with suture decompression and instrumented posterior spinal fusion. Reviewed, dictated and finalized at location B.
== END ==
PROVIDERS: PCP Pain Medicine Interventional Pain Medicine; Visit Provider Pain Medicine Interventional Pain Medicine
DX: M47.817 Spondylosis without myelopathy or radiculopathy, lumbosacral region (principal); M48.07 Spinal stenosis, lumbosacral region; Z98.1 Arthrodesis status
CPT/HCPCS: 72148

== ENCOUNTER → 2022-04-18 10:46 | Outpatient (CLI) | payer OTHER, SELFPAY ==
--- NOTE | ~2022-04-18 | XR_ITS ---
EXAMINATION: XR toe 1st RT min 2V INDICATION: Right first toe pain TECHNIQUE: Two views of the right first toe are obtained. COMPARISON: None available FINDINGS: No displaced fracture is identified. There is mild osteoarthritis at the first metatarsopha langeal joint as well as the visualized interphalangeal joints. The soft tissues are unremarkable. IMPRESSION: 1. No definite fracture identified. Reviewed, dictated and finalized at location A.
== END ==
PROVIDERS: PCP Family Medicine; Visit Provider Family Medicine
DX: M19.071 Primary osteoarthritis, right ankle and foot (principal)
CPT/HCPCS: 73660

== ENCOUNTER 2022-05-20 09:52 | Outpatient (CLI) | payer OTHER, SELFPAY ==
--- NOTE | 2022-05-20 11:15 | NEURO_ITS ---
Impression: # Complains of numbness of hands. # Mild ulnar neuropathy across the elbows, right more than left. # Normal needle/EMG exam. # Clinical correlation recommended. Motor Nerve Conduction Upper Extremities Median Nerve Conduction Velocity (m/sec) Terminal Latency (msec) Response Voltage(mV) Elbow-Wrist Wrist Elbow Wrist Right 55 3.2 4 5 Left 57 2.8 5 5 Ulnar Nerve Conduction Velocity (m/sec) Terminal Latency (msec) Response Voltage(mV) Above Elbow Beow Elbow Wrist Above Elbow Below Elbow Wrist Right 48 54 2.5 5 6 6 Left 52 53 2.8 4 3 5 F-Wave Latency Median (ms) Ulnar (ms) Right 29.5 30.4 Left 30.2 30.2 Sensory Nerve Conduction Upper Extremities Median Nerve Stimulation Terminal Latency (msec) Wrist/Digit Response Voltage (uV) Wrist Right 3.1/3.1 69/68 Left 3.0/2.9 45/50 Ulnar Nerve Stimulation Terminal Latency (msec) Wrist/Digit Response Voltage (uV) Wrist Right 2.5 54 Left 2.6 64 Radial Nerve Terminal Latency (msec) Response Voltage(mV) Right 2.3 12 Left 1.9 6 Left Right Muscles Examined Fibrillation Fasciculation Scarcity Voltage Duration Left Right Left Right Left Right Left Right Left Right Deltoid Biceps X X Brachioradialis Triceps X X Pronator Teres X X Ext Indicis X X Ext Digitorum X X Abd Poll Brev X X 1st Dorsal Interosseus Paraspinals MTDD
== END 2022-05-20 09:53 | disposition home or self-care (01) ==
LOC: ANHNEURO 09:55
PROVIDERS: PCP Family Medicine; Visit Provider Family Medicine
DX: G56.23 Lesion of ulnar nerve, bilateral upper limbs (principal)
CPT/HCPCS: 95886; 95911

== ENCOUNTER → 2022-05-23 09:27 | Outpatient (CLI) | payer OTHER, SELFPAY ==
--- NOTE | ~2022-05-23 | XR_ITS ---
EXAMINATION: XR thoracic spine 3V DATE: 05/23/2022 09:41 INDICATION: 6 months of mid back pain TECHNIQUE: One AP, lateral and lateral swimmer's views of the thoracic spine were obtained. COMPARISON: Lumbar spine MR dated 01/30/2022 FINDINGS: Alignment is normal. Unchanged minimal likely physiologic anterior wedging at T11-L1. Multilevel mild to moderate disc height loss throughout the thoracic spine. Visualized portions of the lungs are randa ar. No pneumothorax or pleural effusion. Cardiomediastinal silhouette is normal. IMPRESSION: 1. Moderate thoracic spondylosis. Reviewed, dictated and finalized at location B.
== END ==
PROVIDERS: PCP Family Medicine; Visit Provider Family Medicine
DX: R07.9 Chest pain, unspecified (principal); M47.894 Other spondylosis, thoracic region
CPT/HCPCS: 72072

== ENCOUNTER 2022-05-27 05:24 | Observation (INO) | payer OTHER, SELFPAY ==
--- NOTE | ~2022-05-27 | US_ITS ---
EXAMINATION: US abdomen limited DATE: 05/29/2022 08:25 INDICATION: Elevated liver function tests TECHNIQUE: Multiple grayscale and Doppler ultrasound images of the abdomen were obtained. COMPARISON: CT dated 05/27/2022 FINDINGS: The pancreatic head and body are normal in appearance. The pancreatic tail is not visualized. Liver has normal contour, with a smooth surface. There is increased parenchymal echogenicity and coarsened echotexture consistent with diffuse hepatic steatosis. 2.5 x 1.4 cm hypoechoic lesion along the gallb ladder fossa most likely focal hepatic sparing but would correlate with planned subsequent MRI. No i ntrahepatic biliary duct dilation suspected. Portal venous flow was seen in the hepatopetal, normal d irection and has normal Doppler waveform. Numerous shadowing gallstones within the otherwise normal-a ppearing gallbladder with no dilation or wall thickening. The common bile duct measures 6 mm in maxim al diameter. Sonographic Hightower sign was reported as negative by the assessment expert. IMPRESSION: 1. Cholelithiasis. No findings to suggest acute cholecystitis or intra or extra hepatic biliary ducta l dilation. Reviewed, dictated and finalized at location A. ICAL QUALITY MANAGER IMPRESSION: 1. Cholelithiasis. No findings to suggest acute cholecystitis or intra or extra hepatic biliary ductal dilation.
--- NOTE | ~2022-05-27 | CT_ITS ---
EXAMINATION: CT abdomen pelvis wo con DATE: 05/27/2022 07:10 INDICATION: Upper abdominal pain with nausea and vomiting TECHNIQUE: Computed tomography (CT) of the abdomen and pelvis was performed without intravenous contr ast. Automated exposure control and iterative reconstruction technique were employed. The dose-length product was 1392.75 mGy-cm. COMPARISON: None FINDINGS: Mild bibasilar atelectasis. /Inferior heart is normal. No pericardial or pleural effusion. Somewhat h eterogeneous diffuse hepatic steatosis. Tiny hepatic calcific location consistent with old granulomat ous disease. Gallbladder, spleen, pancreas, bilateral adrenal glands and kidneys are normal. Bowels a re normal. Bladder, anteverted uterus and bilateral adnexa are normal. Bilateral tubal ligation rings . No free intraperitoneal gas or fluid. No pathologically enlarged abdominal or pelvic lymphadenopath y. Severe lumbosacral spondylosis with mild to moderate spondylosis more cephalad lumbar and lower th oracic spine. L4 partial laminectomy with L4-L5 posterior spinal fusion with bilateral vertical jannet a nd pedicle screw fixation. IMPRESSION: 1. No acute intra-abdominal/pelvic process. 2. Diffuse hepatic steatosis. Reviewed, dictated and finalized at location A. 'S GARMENT FITTER
[2022-05-27 05:24] VITALS: BP 168/83; PULSE 91; RESP 20; TEMP 36.2; O2SAT 98
[2022-05-27 06:24] LABS: Basophils Absolute Auto 0.06 K/mm3 (0.00-0.10); Basophils Percent Auto 0.4 % (0.0-1.0); Eosinophils Absolute Auto 0.11 K/mm3 (0.02-0.50); Eosinophils Percent Auto 0.7 % (1.0-6.0); Hemoglobin 14.1 g/dL (12.0-15.0); Immature Granulocyte Absolute 0.07 K/mm3 (0.00-0.00); Immature Granulocyte Percent A 0.4 % (0.0-0.0); Lymphocytes Absolute Auto 2.37 K/mm3 (1.10-4.50); Lymphocytes Percent Auto 14.2 % (18.0-42.0); Mean Corpuscular HGB Conc 32.8 g/dL (32.0-36.0); Mean Corpuscular Hemoglobin 28.6 pg (27.0-31.0); Mean Corpuscular Volume 87.2 fL (78.0-102.0); Mean Platelet Volume 9.8 fl (9.2-11.8); Monocytes Absolute Auto 1.01 K/mm3 (0.10-0.90); Neutrophils Absolute Auto 13.1 K/mm3 (1.7-7.2); Neutrophils Percent Auto 78.3 % (50.0-70.0); Platelet Count Result 376 K/mm3 (150-420); Red Blood Count 4.93 M/mm3 (4.20-5.40); Red Cell Distribution Width 13.4 % (11.6-14.4); White Blood Count 16.7 K/mm3 (4.8-10.8)
[2022-05-27] MEDS: SODIUM CHLORIDE 0.9% IV 500 ML 999 ML IV CONT (06:24)
[2022-05-27] MEDS: ONDANSETRON INJ 4 MG/2 ML VIAL IV PUSH ×2 (06:27→13:08)
[2022-05-27] MEDS: MORPHINE SULFATE (*CRX) 4 MG/ML INJ 2 MG IV PUSH (06:28)
[2022-05-27] MEDS: PANTOPRAZOLE SODIUM IV 40 MG VIAL IV PUSH (06:30)
[2022-05-27 06:40] LABS: Alanine Aminotransferase 361 U/L (14-59); Albumin Level 3.8 g/dL (3.4-5.0); Alkaline Phosphatase 169 U/L (46-116); Anion Gap 10 mmol/L (8-16); Aspartate Amino Transferase 71 U/L (15-37); Bilirubin,Total 0.6 mg/dL (0.00-1.00); Blood Urea Nitrogen 11 mg/dL (7-18); Calcium 9.5 mg/dL (8.5-10.1); Carbon Dioxide 24 mmol/L (21-32); Chloride 103 mmol/L (98-108); Estimated CRCL calculation 106 ml/min; Estimated Glomerular Filt Rate > 60; Glucose 184 mg/dL (70-99); Lipase 566 U/L (73-393); Osmolality Calculated 288 mOsm/kg (285-295); Potassium 3.9 mmol/L (3.5-5.1); Sodium 137 mmol/L (136-145); Total Protein 7.7 g/dL (6.4-8.2)
[2022-05-27 06:42] LABS: Add Urine Microscopic? NO; Appearance Urine Clear (Clear); Bilirubin Urine Negative (Negative); Blood Urine Negative (Negative); Color Urine Yellow (Yellow); Glucose Urine UA Negative (Negative); Ketones Urine Negative (Negative); Leukocyte Esterase Ur Negative LEU/UL (Negative); Nitrate Urine Negative (Negative); Protein Urine Negative (Negative)
[2022-05-27 06:43] LABS: Lactic Acid Reflex 1.2 mmol/L (0.4-2.0)
--- NOTE | 2022-05-27 06:58 | ED.ABDPAIN ---
HPI - Abdominal Pain General Chief Complaint: Abdominal Pain <Jordan Mao MD - Last Filed: 06/01/22 07:51> Stated Complaint: lower back pain <Jordan Mao MD - Last Filed: 06/01/22 07:51> Time Seen by Provider: 05/27/22 05:27 <Jordan Mao MD - Last Filed: 06/01/22 07:51> Source: patient and RN notes reviewed <Jordan Mao MD - Last Filed: 06/01/22 07:51> Mode of arrival: ambulatory <Jordan Mao MD - Last Filed: 06/01/22 07:51> Limitations: no limitations <Jordan Mao MD - Last Filed: 06/01/22 07:51> History of Present Illness MD elicited complaint: abdominal pain (epigastric x 3 days and mild GRAY x this AM.) <Jordan Mao MD - Last Filed: 06/01/22 07:51> Pertinent past history: other (abdominal pain) <Jordna Mao MD - Last Filed: 06/01/22 07:51> Onset (ago): day(s) (3) <Jordan Mao MD - Last Filed: 06/01/22 07:51> Pain Consistency: constant and colicky <Jordan Mao MD - Last Filed: 06/01/22 07:51> Location: epigastric <Jordan Mao MD - Last Filed: 06/01/22 07:51> Severity: moderate <Jordan Mao MD - Last Filed: 06/01/22 07:51> Pain scale (0-10): 7 <Jordan Mao MD - Last Filed: 06/01/22 07:51> Quality: cramping, aching and dull <Jordan Mao MD - Last Filed: 06/01/22 07:51> Radiation: back <Jordan aMo MD - Last Filed: 06/01/22 07:51> Migration to: no migration <Jordan Mao MD - Last Filed: 06/01/22 07:51> Exacerbating factors: nothing <Jordan Mao MD - Last Filed: 06/01/22 07:51> Associated symptoms: nausea and vomiting <Jordan Mao MD - Last Filed: 06/01/22 07:51> Related Data Patient : No <Jordan Mao MD - Last Filed: 06/01/22 07:51> Home Medications: Home Medications Medication Instructions Recorded Confirmed duloxetine 30 mg capsule,delayed 60 mg PO DAILY 06/19/20 05/27/22 release tramadol 50 mg tablet See Rx Instructions .Route 06/19/20 05/27/22 .COMPLEX PRN Pain gabapentin 600 mg tablet 600 mg PO TID 04/18/21 05/27/22 hydrocodone 7.5 mg-acetaminophen 1 tablet PO TID 04/18/21 05/27/22 325 mg tablet metformin 500 mg tablet 500 mg PO TID 04/18/21 05/27/22 <Jordan Mao MD - Last Filed: 06/01/22 07:51> Allergies/Adverse Reactions: Allergies Allergy/AdvReac Type Severity Reaction Status Date / Time No Known Allergies Allergy Verified 05/27/22 05:30 <Jordan Mao MD - Last Filed: 06/01/22 07:51> Review of Systems Review of Systems: All systems reviewed & are unremarkable except as noted in HPI and below <Jordan Mao MD - Last Filed: 06/01/22 07:51> Constitutional: Constitutional: Reports no additional constitutional complaints <Jordan Mao MD - Last Filed: 06/01/22 07:51> Eyes: Eyes: Reports no additional eye complaints <Jordan Mao MD - Last Filed: 06/01/22 07:51> ENT: Reports system reviewed and no additional complaints, except as documented <Jordan Mao MD - Last Filed: 06/01/22 07:51> Cardiovascular: Cardiovascular: Reports no additional cardiovascular complaints <Jordan Mao MD - Last Filed: 06/01/22 07:51> Respiratory: Respiratory: Reports no additional respiratory complaints <Jordan Mao MD - Last Filed: 06/01/22 07:51> Gastrointestinal: Gastrointestinal: Reports no additional gastrointestinal complaints, Reports abdominal pain, Reports nausea and Reports vomiting <Jordan Mao MD - Last Filed: 06/01/22 07:51> Genitourinary: Genitourinary: Reports no additional female genitourinary complaints <Jordan Mao MD - Last Filed: 06/01/22 07:51> Musculoskeletal: Musculoskeletal: Reports no additional musculoskeletal complaints <Jordan Mao MD - Last Filed: 06/01/22 07:51> Integumentary/Breasts: Skin/Breast: Reports system reviewed and no a
[2022-05-27 08:52] VITALS: BP 166/78; PULSE 88; RESP 18; TEMP 36.8; O2SAT 96
[2022-05-27] MEDS: MORPHINE SULFATE (*CRX) 2 MG/ML INJ IV PUSH ×3 (09:17→20:35)
[2022-05-27] MEDS: DULoxetine HCL 30 MG CAPSULE.DR 60 MG PO (09:18)
[2022-05-27] MEDS: ENOXAPARIN 40 MG/0.4 ML SYRINGE SUB-Q (09:18)
[2022-05-27] MEDS: GABAPENTIN 300 MG CAPSULE 600 MG PO ×3 (09:18→17:06)
[2022-05-27] MEDS: DEXTROSE 5%/0.9% SOD CHL 1,000 ML 100 ML IV CONT ×2 (09:19→20:34)
--- NOTE | 2022-05-27 10:49 | PC.NURSE ---
Pt admitted to room 205 from ED. She is AO/3. She is having abdominal pain, roma Nausea or Vomiting. She walked to the bed unaided gait is steady. Rn instructed the pt regarding the call light, TV and visitor policy. Pt verbalized understanding.
[2022-05-27 10:59] VITALS: BMI 37.6
[2022-05-27 11:45] LABS: Glucose Point of Care 177 mg/dl (65-105)
[2022-05-27 15:03] VITALS: PULSE 90
[2022-05-27 16:00] VITALS: BP 158/70; PULSE 90; RESP 16; TEMP 36.6; O2SAT 98
--- NOTE | 2022-05-27 16:00 | PC.NURSE ---
PT SLEEPING SOUNDLY, NO DISTRESS NOTED, RESP EVEN AND UNLABORED, IVF INFUSING ORDERED, CALL LIGHT IN REACH.
[2022-05-27] MEDS: HYDROcodone/acetaminophen (*CRX) 5-325 MG TABLET 1 TAB PO (17:06)
[2022-05-27 19:16] LABS: Glucose Point of Care 154 mg/dl (65-105)
[2022-05-27 20:00] VITALS: PULSE 89; PULSE 91; RESP 16; O2SAT 95
[2022-05-28] VITALS: BP 122/77; PULSE 87; PULSE 88; RESP 16; TEMP 37.7; O2SAT 91
[2022-05-28 00:04] VITALS: TEMP 37.7
[2022-05-28] MEDS: ACETAMINOPHEN 325 MG TABLET 650 MG PO ×2 (00:04→07:14)
[2022-05-28 00:08] LABS: Glucose Point of Care 179 mg/dl (65-105)
[2022-05-28 01:00] VITALS: TEMP 37.2
[2022-05-28] MEDS: MORPHINE SULFATE (*CRX) 2 MG/ML INJ IV PUSH ×3 (03:52→20:17)
[2022-05-28 04:00] VITALS: PULSE 86
--- NOTE | 2022-05-28 04:15 | PC.NURSE ---
Patient called for nurse. Stated pain had not been relieved by morphine, and in fact had increased. Complains of increasing pain in mid to lower back. States has had previous back problems, but feels this is related to abdominal pain. Given warm blankets along back, with pillow placed to prop back up as patient is lying on her side. Patient given norco 5-325 and robaxin in attempt to alleviate the pain.
[2022-05-28] MEDS: HYDROcodone/acetaminophen (*CRX) 5-325 MG TABLET 1 TAB PO ×2 (04:28→13:17)
[2022-05-28] MEDS: methocarbamoL 750 MG TABLET PO (04:30)
[2022-05-28 06:11] LABS: Glucose Point of Care 157 mg/dl (65-105)
[2022-05-28 07:40] LABS: Hematocrit 38.6 % (35.0-49.0); Hemoglobin 12.7 g/dL (12.0-15.0); Mean Corpuscular HGB Conc 32.9 g/dL (32.0-36.0); Mean Corpuscular Hemoglobin 29.1 pg (27.0-31.0); Mean Corpuscular Volume 88.5 fL (78.0-102.0); Mean Platelet Volume 9.9 fl (9.2-11.8); Platelet Count Result 295 K/mm3 (150-420); Red Blood Count 4.36 M/mm3 (4.20-5.40); Red Cell Distribution Width 13.4 % (11.6-14.4); White Blood Count 17.9 K/mm3 (4.8-10.8)
[2022-05-28 07:55] LABS: Alanine Aminotransferase 195 U/L (14-59); Albumin Level 3.2 g/dL (3.4-5.0); Alkaline Phosphatase 127 U/L (46-116); Anion Gap 7 mmol/L (8-16); Aspartate Amino Transferase 20 U/L (15-37); Bilirubin,Total 0.6 mg/dL (0.00-1.00); Blood Urea Nitrogen 8 mg/dL (7-18); Calcium 9.1 mg/dL (8.5-10.1); Carbon Dioxide 24 mmol/L (21-32); Chloride 103 mmol/L (98-108); Estimated CRCL calculation 137 ml/min; Estimated Glomerular Filt Rate > 60; Glucose 150 mg/dL (70-99); Lipase 148 U/L (73-393); Osmolality Calculated 279 mOsm/kg (285-295); Potassium 3.7 mmol/L (3.5-5.1); Sodium 134 mmol/L (136-145); Total Protein 6.8 g/dL (6.4-8.2)
[2022-05-28 08:00] VITALS: BP 134/56; PULSE 78; RESP 18; TEMP 36.7; O2SAT 97
[2022-05-28 08:16] LABS: Glucose Point of Care 135 mg/dl (65-105)
[2022-05-28] MEDS: GABAPENTIN 300 MG CAPSULE 600 MG PO ×3 (08:37→16:46)
[2022-05-28] MEDS: DULoxetine HCL 30 MG CAPSULE.DR 60 MG PO (08:37)
[2022-05-28] MEDS: ENOXAPARIN 40 MG/0.4 ML SYRINGE SUB-Q (08:37)
[2022-05-28] MEDS: PANTOPRAZOLE SODIUM IV 40 MG VIAL IV PUSH (08:38)
--- NOTE | 2022-05-28 08:45 | PM.IMHP ---
H&P: HPI History of Present Illness Date/Time: 05/28/22 08:45 Chief Complaint: Abdominal pain, back pain Narrative: this is a 51-year-old female who presented to our emergency department with complaints of back pain and abdominal pain with nausea. Patient has a past medical history of abdominal pain, back pain, depression, obesity., pancreatitis and prediabetes. according to patient approximately 6 months ago she experienced abdominal pain with chest pain. patient's cardiac testing negative for [place] patient was given Zofran symptoms resolved and she was discharged home. patient recently visited her primary care physician labs indicated LFT. patient notes that she has been having intermitted abdominal pain. Patient notes that the abdominal pain usually resolves on its own. Patient notes that when her pain did not resolve on its own she proceeded to arm urgency department.patient was ordered a ultrasound which was scheduled for today by her primary care physician. unable to be completed due none in p.o. status. patient was admitted for possible pancreatic due to elevated lipase WBCs 16.7, hemoglobin 14.1, hematocrit 43.0, platelets 376, BUN 11, creatinine 0.73, sodium 137, potassium 3.9, BUN 11 creatinine 0.73 glucose 184 lactic acid 1.2 total bilirubin 0.6 AST 71 ALT 361 alkaline phosphatase 169 [address]ase [address] of the abdomen pelvis and spine no acute findings, EKG sinus rhythm with a heart rate of 79. The patient denies SOB, CP, palpitation, extremity numbness, lightheadedness, dizziness, constipation, diarrhea, chills, or fever. patient continues to complain of bilateral upper quadrant pain with some nausea. she was able to tolerate her breakfast today. spoke with her primary care physician Dr. Bruce hemphill and recommended the patient see a GI specialist for a possible ERCP. Review of Systems Review of Systems: A 14 organ system Review of Systems was performed and pertinent positives included in the HPI, otherwise remaining ROS is negative. [facility] Past Medical History Medical History (Updated 05/28/22 @ 09:23 by TEDDY Henderson) Abdominal pain Back pain Depression Obesity Pancreatitis Pre-diabetes Surgical History Surgical History Previous back surgery spinal fusion 2018 Status post Status post carpal tunnel release Status post tonsillectomy Social History Social History Smoking packs per day: 1 Smoking cigarettes per day: 20.0 Years smoked: 20 Smoking pack-years: 20.00 Smoking status: Former smoker Tobacco type: cigarettes Second hand tobacco smoke exposure: No Alcohol intake: never Drinks per week: 0 Alcohol use details: 2 TIMES PER YEAR Substance use: never Substance use type: does not use Has the Lack of Transportation Kept You From Medical Appointments or From Getting Medications?: No Within the Past 12 Months, Were You Worried Whether Your Food Would Run Out Before You Got Money to Buy More?: Never True What is Your Housing Situation Today?: I Have Housing Are You Worried That in the Next 2 Months, You May Not Have Your Own Housing to Live In?: No Do You Have Trouble Paying Your Heating Or Electricity Bill?: No Do You Have Trouble Paying For Medicines?: No Are You Currently Unemployed and Looking for Work?: No Highest Level of Education Completed: High School Diploma/GED Do You Have Trouble With Childcare or the Care of a Family Member?: No Spiritual care concerns: No Meds Home Medications and Allergies Home Medications Medication Instructions Recorded Confirmed Type duloxetine 30 mg capsule,delayed 60 mg PO DAILY 06/19/20 05/27/22 History release tramadol 50 mg tablet See Rx Instructions .Route 06/19/20 05/27/22 History .COMPLEX PRN Pain gabapentin 600 mg tablet 600 mg PO TID 04/18/21 05/27/22 History hydrocodo
--- NOTE | 2022-05-28 10:40 | PC.NURSE ---
0900 tele stopped at this time and patches removed.
[2022-05-28 11:30] LABS: Glucose Point of Care 150 mg/dl (65-105)
[2022-05-28 16:00] VITALS: BP 112/60; PULSE 72; RESP 16; TEMP 36.8; O2SAT 95
[2022-05-28 16:49] LABS: Glucose Point of Care 116 mg/dl (65-105)
--- NOTE | 2022-05-28 18:02 | PC.NURSE ---
pt up to shower, does not want any pain medicine at this time, dinner tray removed
[2022-05-28] MEDS: DOCUSATE SODIUM 100 MG CAPSULE PO (20:17)
[2022-05-28 20:18] LABS: Glucose Point of Care 147 mg/dl (65-105)
[2022-05-29] VITALS: BP 103/64; PULSE 78; RESP 20; TEMP 36.1; O2SAT 93
--- NOTE | 2022-05-29 00:15 | PC.NURSE ---
Pt resting quietly in bed and states she has pain in her abdomen and rates it a '7' on a 1-10 pain scale; Pt given morphine 2 mg IVP to relieve c/o abdominal pain. Pt told she is NPO for ct scan and ultra sound of the abdomen in the AM and she voices her understanding. Pt doesnt voice any c/o nausea or vomiting at this time.
[2022-05-29] MEDS: MORPHINE SULFATE (*CRX) 2 MG/ML INJ IV PUSH (00:21)
[2022-05-29 01:20] VITALS: TEMP 36.1
--- NOTE | 2022-05-29 01:20 | PC.NURSE ---
Pt sitting up at bedside; Pt rates her pain as a '2' on a 1-10 pain scale. She states her pain is mostly in the left upper quadrant of her abdomen and radiating to the left side of her back. Pt voided 550 ml of clear, medium drea urine.
--- NOTE | 2022-05-29 03:16 | PC.NURSE ---
Pt asleep and no signs of discomfort noted; 100 mls of clear, yellow urine emptied from hat.
--- NOTE | 2022-05-29 05:14 | PC.NURSE ---
Lab is here drawing blood on patient.
[2022-05-29 05:22] LABS: Hematocrit 38.3 % (35.0-49.0); Hemoglobin 12.2 g/dL (12.0-15.0); Mean Corpuscular HGB Conc 31.9 g/dL (32.0-36.0); Mean Corpuscular Hemoglobin 28.8 pg (27.0-31.0); Mean Corpuscular Volume 90.5 fL (78.0-102.0); Mean Platelet Volume 9.8 fl (9.2-11.8); Platelet Count Result 318 K/mm3 (150-420); Red Blood Count 4.23 M/mm3 (4.20-5.40); Red Cell Distribution Width 13.2 % (11.6-14.4); White Blood Count 13.5 K/mm3 (4.8-10.8)
[2022-05-29 06:04] LABS: Iron 17 ug/dL (50-170); Percent Iron Saturation 7 % (12-57)
[2022-05-29 06:15] LABS: Alanine Aminotransferase 138 U/L (14-59); Albumin Level 3.1 g/dL (3.4-5.0); Alkaline Phosphatase 118 U/L (46-116); Anion Gap 8 mmol/L (8-16); Aspartate Amino Transferase 11 U/L (15-37); Bilirubin Direct 0.2 mg/dL (0-0.2); Bilirubin Indirect 0.3 mg/dL (0-1.0); Bilirubin,Total 0.5 mg/dL (0.00-1.00); Blood Urea Nitrogen 11 mg/dL (7-18); Calcium 9.3 mg/dL (8.5-10.1); Carbon Dioxide 27 mmol/L (21-32); Chloride 104 mmol/L (98-108); Estimated CRCL calculation 109 ml/min; Estimated Glomerular Filt Rate > 60; Ferritin 305 ng/mL (8-252); Glucose 107 mg/dL (70-99); Osmolality Calculated 287 mOsm/kg (285-295); Potassium 3.7 mmol/L (3.5-5.1); Sodium 139 mmol/L (136-145); Total Protein 6.8 g/dL (6.4-8.2); Vitamin B12 706 pg/mL (193-986)
[2022-05-29 06:20] LABS: Ammonia < 10 umol/L (11-32)
[2022-05-29 06:21] LABS: CRP 24.5 mg/dL (0.0-0.9); Folic Acid > 20.0 ng/mL (8.6->20); GGT > 690.0 U/L (5-55)
[2022-05-29 06:23] LABS: Thyroid Stimulating Hormone Reflex 1.84 u/IU/mL (0.36-3.74)
[2022-05-29 07:28] LABS: Glucose Point of Care 93 mg/dl (65-105)
[2022-05-29 08:00] VITALS: BP 128/74; PULSE 76; RESP 18; TEMP 36.1; O2SAT 99
[2022-05-29] MEDS: DULoxetine HCL 30 MG CAPSULE.DR 60 MG PO (08:47)
[2022-05-29] MEDS: GABAPENTIN 300 MG CAPSULE 600 MG PO (08:47)
[2022-05-29] MEDS: ENOXAPARIN 40 MG/0.4 ML SYRINGE SUB-Q (08:47)
[2022-05-29] MEDS: DOCUSATE SODIUM 100 MG CAPSULE PO (08:47)
[2022-05-29] MEDS: polyethylene glycoL 3350 17 GM POWD.PACK PO (08:52)
[2022-05-29] MEDS: PANTOPRAZOLE SODIUM IV 40 MG VIAL IV PUSH (09:07)
--- NOTE | 2022-05-29 13:58 | PC.NURSE ---
1115 pt dc to 's vechicle. dc instructions went over and vocalizes an understanding. mri set up for friday @ 0945.
--- NOTE | 2022-05-30 08:09 | PM.SD2 ---
Same Day Admit/Disch: HPI History of Present Illness Chief complaint: Pancreatitis/transaminitis rule out gallbladder Narrative: Deana Hannah is a 51 year old female [facility] Past Medical History Medical History (Updated 05/28/22 @ 09:23 by TEDDY Henderson) Abdominal pain Back pain Depression Obesity Pancreatitis Pre-diabetes Surgical History Surgical History Previous back surgery spinal fusion 2018 Status post Status post carpal tunnel release Status post tonsillectomy Social History Social History Smoking packs per day: 1 Smoking cigarettes per day: 20.0 Years smoked: 20 Smoking pack-years: 20.00 Smoking status: Former smoker Tobacco type: cigarettes Second hand tobacco smoke exposure: No Alcohol intake: never Drinks per week: 0 Alcohol use details: 2 TIMES PER YEAR Substance use: never Substance use type: does not use Lack of Transportation: No Lack of Food: Never True Current Housing: I Have Housing Concerned About Future Housing: No Difficulty Paying Gas/Electric Bills: No Difficulty Paying for Meds: No Currently Unemployed: No Education: High School Diploma/GED Difficulty w/ Childcare or Family Care: No Spiritual care concerns: No Same Day Admit/Disch: Med Pre-admit Medications Home Medications Medication Instructions Recorded Confirmed Type duloxetine 30 mg capsule,delayed 60 mg PO DAILY 06/19/20 05/27/22 History release tramadol 50 mg tablet See Rx Instructions .Route 06/19/20 05/27/22 History .COMPLEX PRN Pain gabapentin 600 mg tablet 600 mg PO TID 04/18/21 05/27/22 History hydrocodone 7.5 mg-acetaminophen 1 tablet PO TID 04/18/21 05/27/22 History 325 mg tablet metformin 500 mg tablet 500 mg PO TID 04/18/21 05/27/22 History pantoprazole 40 mg tablet,delayed 40 mg PO QAM 4 weeks #28 tabs 04/19/21 05/27/22 Rx release methocarbamol 750 mg tablet 750 mg PO TID #15 tabs 12/03/21 05/27/22 Rx albuterol sulfate 90 mcg/actuation 1 inh inhalation QID PRN shortness 01/22/22 05/27/22 Rx aerosol inhaler of breath or wheezing #8.5 grams levofloxacin 500 mg tablet 500 mg PO DAILY #5 tabs 05/29/22 Rx DS: Data Data Completed and Pending Labs on day of discharge: Preliminary micro results at discharge 05/27/22 08:40 Blood Culture - Preliminary Blood 05/27/22 08:40 Blood Culture - Preliminary Blood DS: Summary Time Spent with Patient Time attestation: Total time spent providing and/or coordinating discharge services: DS: Admitting Diagnosis Discharge Date 05/29/22 Discharge Plan Discharge Attending physician on discharge: Dileep Joiner Consulting providers: Tanner Hardwick ; Stan Culp Discharging Clinician: Clarke Ken Anticipated Discharge Date/Time: 05/29/22 09:50 Patient Disposition: Home, Self-Care Activity: may shower and as tolerated Diet: as tolerated, heart healthy, diabetic and other - see discharge instructions Wound Care Instructions: follow printed instructions Patient Instructions: Antibiotic Form, Levofloxacin (By mouth), Acute Nausea and Vomiting (DC), Non-Alcoholic Fatty Liver Disease (DC), Abdominal Pain (DC), Fall Prevention (DC) Stand Alone Forms: General Discharge Information Follow-up/Referrals: Kaleb Fernandez MD [Primary Care Provider] - 06/06/22 10:30 am (Call and schedule appointment ) Discharge Medications: New levofloxacin 500 mg tablet 500 mg PO DAILY Qty: 5 0RF Continued methocarbamol 750 mg tablet 750 mg PO TID Qty: 15 0RF metformin 500 mg tablet 500 mg PO TID gabapentin 600 mg tablet 600 mg PO TID hydrocodone-acetaminophen 7.5-325 mg tablet 1 tablet PO TID pantoprazole 40 mg tablet,delayed release (DR/EC) 40 mg PO QAM 28 Days Qty: 28 0RF albuterol sulfate 90 mcg/actua
--- NOTE | 2022-05-30 08:24 | PM.DS ---
DS: Admitting Diagnosis Discharge Date 05/29/22 Admitting Diagnosis Pancreatitis DS: Discharge Diagnosis Discharge Diagnosis (1) Epigastric abdominal pain: Code(s): R10.13 - Epigastric pain Status: Acute Assessment and Plan: Resolved ONLY SOME DISCOMFORT AT THIS TIME TOLERATING EATING AND DRINKING,. (2) Transaminitis: Code(s): R74.01 - Elevation of levels of liver transaminase levels Status: Acute (3) Elevated lipase: Code(s): R74.8 - Abnormal levels of other serum enzymes Status: Acute (4) Obesity: Code(s): E66.9 - Obesity, unspecified Status: Acute Assessment and Plan: weight management (5) Depression: Code(s): F32.9 - Major depressive disorder, single episode, unspecified Status: Acute Assessment and Plan: sTABLE CONTINUE HOME MEDICATION (6) Back pain: Code(s): M54.9 - Dorsalgia, unspecified Status: Acute Assessment and Plan: RESOLVED (7) Elevated WBCs: Code(s): D72.829 - Elevated white blood cell count, unspecified Status: Acute Assessment and Plan: IMPROVING 13.5 (8) Hepatic steatosis: Code(s): K76.0 - Fatty (change of) liver, not elsewhere classified Status: Acute (9) Cholecystitis: Code(s): K81.9 - Cholecystitis, unspecified Status: Acute Assessment and Plan: SHOWING ON ULTASOUND NO OBSTRUCTION ?Cholelithiasis. No findings to suggest acute cholecystitis or intra or extra hepatic biliary ductal dilation. DS: Summary Hospital Course Reason for hospitalization: Pancreatitis Hospital Course: This is a 51-year-old female that was admitted to the hospital with pancreatitis was having abdominal back pain with some nausea patient has a past medical history pancreatitis. Patient was treated with IV fluids kept NPO for while and given pain meds. Patient was able to tolerate eating without any difficulties her labs remained stable although she still had some abdominal pressure with palpitation. But symptoms that were severe seem to resolve patient's white blood count went down to 13.5, hemoglobin was 12.2, hematocrit was 38.3, platelets was 318, potassium is 3.7, sodium was 139, BUN was 11 and creatinine was 0.73. Patient will follow-up with her primary care provider once she will end up seeing a GI specialist Dr. Leung for a nurse was notified that she may need a possible ERCP. Patient has remained afebrile she is eating and drinking without any nausea vomiting and/or diarrhea she will go home on oral antibiotics and some p.o. pain medication. Ultrasound showed Cholelithiasis. No findings to suggest acute cholecystitis or intra or extra hepatic biliary ductal dilation. Time Spent with Patient Time attestation: Total time spent providing and/or coordinating discharge services: Exam Narrative: GENERAL: This is a well-nourished, well-developed patient, in no apparent distress. HEAD: normocephalic, atraumatic. EYES: PERRL. NOSE: External nose normal with no obvious nasal discharge, nares without redness, no rhinorrhea. NECK: Neck supple CARDIOVASCULAR: Regular rate RESPIRATORY: Clear to auscultation. Breath sounds equal bilaterally. GASTROINTESTINAL: Abdomen soft, discomfort? to right and left upper quad, nondistended. Bowel sounds are active. SKIN: warm, intact with no suspicious lesions or rash, good texture and turgor. NEURO: awake, alert, and oriented to person, place and time. There were no obvious focal neurologic abnormalities.? EXTREMITIES: Normal range of motion.? No edema. DS: Data Data Completed and Pending Labs on day of discharge: Preliminary micro results at discharge 05/27/22 08:40 Blood Culture - Preliminary Blood 05/27/22 08:40 Blood Culture - Preliminary Blood Discharge Plan Discharge Attending physician on discharge: Dileep Joiner Consulting providers: Tanner Hardwick ; Stan Culp
--- NOTE | 2022-05-30 13:16 | PC.NURSE ---
Pt states she received and understood her discharge instructions. Pt also states all of the nurses were phenomenal. I felt very well taken care of .
[2022-06-01 11:10] LABS: Mitochondrial (M2) Ab (IgG) <=20.0 U (<=20.0)
[2022-06-01 12:17] LABS: Hepatitis B Surface Antigen Nonreactive (Nonreactive)
[2022-06-01 22:35] LABS: Ceruloplasmin 35 mg/dL (18-53)
[2022-06-02 19:27] LABS: Hepatitis A Antibody IgM Nonreactive
[2022-06-02 19:29] LABS: Hepatitis C Signal to Cutoff 0.01 ratio (<1.00); Hepatitis C Virus Antibody Nonreactive (Nonreactive)
== END 2022-05-29 11:15 | disposition home or self-care (01) ==
LOC: CHSED 07:27 → CHS2ND 08:28
PROVIDERS: Emergency Medicine; Nurse Practitioner; Admitting Provider Internal Medicine; Emergency Provider Internal Medicine Critical Care Medicine; PCP Family Medicine; Visit Provider Internal Medicine
DX: R10.13 Epigastric pain (principal); K80.20 Calculus of gallbladder without cholecystitis without obstruction; D72.829 Elevated white blood cell count, unspecified; R74.01 Elevation of levels of liver transaminase levels; R74.8 Abnormal levels of other serum enzymes; R73.03 Prediabetes; K76.0 Fatty (change of) liver, not elsewhere classified; M54.9 Dorsalgia, unspecified; E66.9 Obesity, unspecified; F32.A Depression, unspecified; Z98.1 Arthrodesis status; Z87.891 Personal history of nicotine dependence
CPT/HCPCS: 36415; 74176; 76705; 80048; 80053; 80076; 81003; 82104; 82140; 82390; 82607; 82728; 82746; 82948; 82977; 83520; 83540; 83550; 83605; 83690; 84443; 84484; 85025; 85027; 86038; 86140; 87040; 96361; 96365; 96372; 96375; 96376; 99285; A9270; C9113; G0378; J0696; J1650; J2270; J2405; J7040; J7042

== ENCOUNTER 2022-06-10 08:17 | Outpatient (CLI) | payer OTHER, SELFPAY ==
--- NOTE | 2022-06-10 09:45 | EST_ITS ---
Patient Info Name: Deana Hannah Age: 51 years : 1970 Gender: Female Ht: 70 in Wt: 262 lbs BSA: 2.47 m2 Exam Date: 06/10/2022 9:48 AM Exam Location: [facility] Patient Status: Outpatient Admit Date: 06/10/2022 Any Known Allergies: NKA Staff Ordering Physician: Kaleb Fernandez MD Attending Provider: Kaleb Fernandez MD Exam Type: CA stress delvis w NM Study Info A regadenoson stress test was performed. History/Risk Factors Diabetes Mellitus: Type II Summary 1. 1. Negative lexiscan stress test for ischemic ST changes by ECG criteria. 2. 2. Stable hemodynamics throughout the test. 3. 3. Nuclear scan to follow and will be reported separately. Please correlate with it. Protocol: LEXISCAN Stress ECG Details Stage: REST Duration (min): 1 min : 1 sec HR (bpm): 69 SBP (mmHg): 105 DBP (mmHg): 67 Stage: REST Duration (min): 8 min : 31 sec HR (bpm): 68 SBP (mmHg): 105 DBP (mmHg): 67 Stage: STAGE 1 Duration (min): 0 min : 12 sec HR (bpm): 69 SBP (mmHg): 105 DBP (mmHg): 67 Stage: RECOVERY Duration (min): 0 min : 47 sec HR (bpm): 92 SBP (mmHg): 105 DBP (mmHg): 67 Stage: RECOVERY Duration (min): 1 min : 47 sec HR (bpm): 94 SBP (mmHg): 105 DBP (mmHg): 67 Stage: RECOVERY Duration (min): 2 min : 47 sec HR (bpm): 92 SBP (mmHg): 112 DBP (mmHg): 61 Stage: RECOVERY Duration (min): 3 min : 47 sec HR (bpm): 90 SBP (mmHg): 109 DBP (mmHg): 60 Stage: RECOVERY Duration (min): 4 min : 47 sec HR (bpm): 92 SBP (mmHg): 109 DBP (mmHg): 60 Stage: RECOVERY Duration (min): 5 min : 38 sec HR (bpm): 82 SBP (mmHg): 109 DBP (mmHg): 60 Rest HR: 68 bpm Peak HR: 96 bpm Rest Sys BP: 105 mmHg Peak Sys BP: 112 mmHg Max Pred HR: 168 bpm % Max Pred HR: 57 % Target HR: 143 bpm Max RPP: 10,752 bpm*mmHg Termination Reason: Completion of Protocol Cardiac Symptoms: None Total Time: 0 min : 12 sec Rest Rowland BP: 67 mmHg Peak Rowland BP: 61 mmHg Total Dose: 0.4 mg Resting ECG Normal sinus rhythm. Stress ECG No abnormal ST/T wave changes. Arrhythmias None. Report Signatures
--- NOTE | 2022-06-10 13:13 | WPDCARIOSTRE ---
Nuclear Stress Test INDICATIONS Indications: Chest pain PROCEDURE Procedure Performed: Myocardial Perf Spect-Multi Procedure: Patient underwent a lexiscan stress test and immediately was injected with 31.8 mCi of cardiolyte. Multiple tomographic images were obtained. These are of good quality. There is very small, mild anterior perfusion defect noted with stress imaging. A separate resting study was performed after patient was injected with 10.1 mCi of cardiolyte. Multiple tomographic images were obtained. These are of good quality. There is very small, mild anterior perfusion defect noted with rest imaging. CONCLUSION Conclusion: 1. Myocardial perfusion imaging demonstrating a fixed very small, mild anterior perfusion defect suggestive of breast attenuation artifact. 2. No evidence of reversible ischemia. 3. Left ventriculogram demonstrates normal measured ejection fraction of 63% with no wall motion abnormalities. 4. TID score is normal at 1.
== END 2022-06-10 08:18 | disposition home or self-care (01) ==
LOC: CHSIMG 08:18
PROVIDERS: PCP Family Medicine; Visit Provider Family Medicine
DX: R07.9 Chest pain, unspecified (principal)
CPT/HCPCS: 78452; 93017; A9502; J2785

== ENCOUNTER 2022-07-10 13:47 | Emergency (ER) | payer OTHER, SELFPAY ==
--- NOTE | ~2022-07-10 | CT_ITS ---
EXAMINATION: CT abdomen pelvis wo con DATE: 07/10/2022 14:42 INDICATION: Epigastric pain TECHNIQUE: Computed tomography (CT) of the abdomen and pelvis was performed without intravenous contr ast. The dose-length product (DLP) was 1260.00 mGy-cm. Automated exposure control and iterative recon struction technique were employed. COMPARISON: 05/27/2022 FINDINGS: Minimal dependent atelectasis is present in the lung bases. The heart size is normal. The l iver is diffusely low in attenuation when compared with the spleen, consistent with hepatic steatosis . The spleen, pancreas, gallbladder, and adrenal glands are normal. There is a 7 mm cyst of the left kidney. The right kidney is unremarkable. No pathologically enlarged abdominal or pelvic lymph nodes are identified. There is no free intraperitoneal gas or evidence of bowel obstruction. The appendix i s normal. There are changes of posterior fusion at L4-5. There is severe loss of intervertebral disc space height at L5-S1. IMPRESSION: 1. No CT correlate for the patient's symptoms. Reviewed, dictated and finalized at location F. L LOADER OPERATOR
[2022-07-10 13:50] VITALS: BP 113/67; PULSE 80; RESP 20; TEMP 36.4
--- NOTE | 2022-07-10 14:08 | ED.GENADULT ---
HPI - General Adult General Chief complaint: Abdominal Pain Stated complaint: thinks she is having a pancreatic attack Time Seen by Provider: 07/10/22 14:05 History of Present Illness HPI narrative: The patient is a 51-year-old woman with a history of pancreatitis diagnosed 05/27/2022 when she was admitted here for 2 days. Her workup included ultrasonography and CT scan of the abdomen, see results below. She has been referred to a general surgeon. She is scheduled to have a cholecystectomy next week. Other comorbidities include obstructive sleep apnea, depression, obesity, degenerative disc disease, status post spinal fusion. She does have Vicodin at home and takes approximately 2 Vicodin tablets per week. Does have occasional constipation as a result. The patient developed epigastric abdominal discomfort approximately 2 hours ago at noon today, nonradiating except for the back, associated with nausea but no vomiting. She did take 1 Vicodin tablet , for pain, and her pain is decreased significantly. Her nausea has resolved. Last bowel movement 2 days ago. No urinary symptoms such as hematuria urgency or frequency. No URI symptoms such as cough rhinorrhea nasal congestion or fevers or chills or diaphoresis. Related Data Home Medications Medication Instructions Recorded Confirmed duloxetine 30 mg capsule,delayed 60 mg PO DAILY 06/19/20 07/10/22 release tramadol 50 mg tablet See Rx Instructions .Route 06/19/20 07/10/22 .COMPLEX PRN Pain gabapentin 600 mg tablet 600 mg PO TID 04/18/21 07/10/22 hydrocodone 7.5 mg-acetaminophen 1 tablet PO TID 04/18/21 07/10/22 325 mg tablet metformin 500 mg tablet 500 mg PO TID 04/18/21 07/10/22 Allergies Allergy/AdvReac Type Severity Reaction Status Date / Time No Known Allergies Allergy Verified 07/10/22 13:56 Review of Systems Review of Systems: All systems reviewed & are unremarkable except as noted in HPI and below Constitutional: Constitutional: Reports no additional constitutional complaints, Denies anorexia, Denies body ache(s), Denies chills, Denies excessive sweating, Denies fatigue, Denies fever(s), Denies frequent falls, Denies headache(s), Denies malaise and Denies poor appetite Eyes: Eyes: Reports no additional eye complaints, Denies blurry vision, Denies change in vision, Denies irritation, Denies itchy eyes and Denies photophobia ENT: Reports system reviewed and no additional complaints, except as documented, Reports Normal hearing present, Denies change in voice, Denies dysphagia, Denies vertigo, Denies dizziness, Denies ear discharge, Denies headache(s), Denies hearing loss, Denies hoarseness, Denies nasal congestion, Denies neck pain, Denies sinus pressure, Denies sore throat and Denies throat swelling Cardiovascular: Cardiovascular: Reports no additional cardiovascular complaints, Denies chest pain, Denies syncope, Denies rapid heart rate, Denies irregular heart rhythm, Denies leg edema, Denies dyspnea and Denies slow heart rate Respiratory: Respiratory: Reports no additional respiratory complaints, Denies cough, Denies dyspnea, Denies stridor and Denies wheezing Gastrointestinal: Gastrointestinal: Reports no additional gastrointestinal complaints, Reports abdominal pain, Denies melena, Denies hematochezia, Reports constipation, Denies dysphagia, Denies diarrhea, Reports nausea and Denies vomiting Genitourinary: Genitourinary: Denies hematuria, Denies urinary frequency, Denies dysuria, Denies flank pain and Denies urinary urgency Musculoskeletal: Musculoskeletal: Reports no additional musculoskeletal complaints, Denies abnormal gait, Denies back pain, Denies myalgias, Denies arthralgias, Denies joint swelling, Denies limited range of motion, Denies muscle cramps, Denies muscle weakness, Denies neck pain and Denies numbness Integumentary/Breasts: Skin/Breast: Reports system reviewed and no additional complaints, except as docu, Denies breast pain, Denies change
[2022-07-10 14:26] LABS: Basophils Absolute Auto 0.07 K/mm3 (0.00-0.10); Basophils Percent Auto 0.7 % (0.0-1.0); Eosinophils Percent Auto 2.1 % (1.0-6.0); Hematocrit 42.1 % (35.0-49.0); Hemoglobin 13.8 g/dL (12.0-15.0); Immature Granulocyte Absolute 0.03 K/mm3 (0.00-0.00); Immature Granulocyte Percent A 0.3 % (0.0-0.0); Lymphocytes Absolute Auto 3.19 K/mm3 (1.10-4.50); Lymphocytes Percent Auto 33.3 % (18.0-42.0); Mean Corpuscular HGB Conc 32.8 g/dL (32.0-36.0); Mean Corpuscular Hemoglobin 28.5 pg (27.0-31.0); Mean Corpuscular Volume 86.8 fL (78.0-102.0); Mean Platelet Volume 9.7 fl (9.2-11.8); Monocytes Absolute Auto 0.52 K/mm3 (0.10-0.90); Monocytes Percent Auto 5.4 % (2.0-11.0); Neutrophils Absolute Auto 5.6 K/mm3 (1.7-7.2); Neutrophils Percent Auto 58.2 % (50.0-70.0); Platelet Count Result 344 K/mm3 (150-420); Red Blood Count 4.85 M/mm3 (4.20-5.40); Red Cell Distribution Width 13.3 % (11.6-14.4); White Blood Count 9.6 K/mm3 (4.8-10.8)
[2022-07-10 14:29] LABS: Add Urine Microscopic? YES; Appearance Urine Clear (Clear); Bilirubin Urine Negative (Negative); Blood Urine Negative (Negative); Color Urine Light Yellow (Yellow); Glucose Urine UA Negative (Negative); Ketones Urine Negative (Negative); Leukocyte Esterase Ur Trace LEU/UL (Negative); Nitrate Urine Negative (Negative); Protein Urine Negative (Negative); Urobilinogen Urine 0.2 mg/dL (0.2-1.0)
[2022-07-10 14:33] LABS: RBC Urine None seen /hpf (0-2)
[2022-07-10 14:34] LABS: Bacteria Urine Trace /hpf; Squamous Epithelial Cell Urine Few /hpf (Few); WBC Urine 0-3 /hpf (0-3)
[2022-07-10 14:41] LABS: Alanine Aminotransferase 56 U/L (14-59); Albumin Level 3.6 g/dL (3.4-5.0); Alkaline Phosphatase 93 U/L (46-116); Amylase 36 U/L (25-115); Anion Gap 9 mmol/L (8-16); Aspartate Amino Transferase 43 U/L (15-37); Bilirubin,Total 0.2 mg/dL (0.00-1.00); Blood Urea Nitrogen 14 mg/dL (7-18); Calcium 9.2 mg/dL (8.5-10.1); Carbon Dioxide 26 mmol/L (21-32); Chloride 105 mmol/L (98-108); Estimated CRCL calculation 99 ml/min; Estimated Glomerular Filt Rate > 60; Glucose 195 mg/dL (70-99); Lipase 27 U/L (16-77); Osmolality Calculated 295 mOsm/kg (285-295); Potassium 3.5 mmol/L (3.5-5.1); Sodium 140 mmol/L (136-145); Total Protein 7.1 g/dL (6.4-8.2)
[2022-07-10 14:49] LABS: Bilirubin Direct 0.1 mg/dL (0-0.2)
[2022-07-10 15:55] VITALS: BP 129/69; PULSE 82; RESP 16; O2SAT 97
== END 2022-07-10 15:54 | disposition home or self-care (01) ==
PROVIDERS: Emergency Provider Emergency Medicine; PCP Family Medicine
DX: R10.13 Epigastric pain (principal); F32.A Depression, unspecified; Z79.891 Long term (current) use of opiate analgesic; Z79.84 Long term (current) use of oral hypoglycemic drugs; Z87.891 Personal history of nicotine dependence
CPT/HCPCS: 36415; 74176; 80053; 81001; 82150; 82248; 83690; 85025; 99284

== ENCOUNTER 2022-11-22 15:05 | Outpatient (CLI) | payer OTHER, SELFPAY ==
--- NOTE | ~2022-11-22 | MM_ITS ---
EXAMINATION: MM screening mello BI w edy HISTORY: Screening mammogram, family history of breast cancer in her mother and sister. TECHNIQUE: Craniocaudal and mediolateral oblique 3-D tomosynthesis images were obtained and synthetic 2-D images were generated. CAD analysis was submitted and interpreted. COMPARISON: 03/29/2021, 03/10/2020, 02/27/2018 BREAST PARENCHYMAL COMPOSITION: The breasts are almost entirely fatty. FINDINGS: No suspicious mass, calcification, or architectural distortion are identified in either krupa ast to suggest malignancy. There has been no suspicious interval change. IMPRESSION: 1. No mammographic evidence of malignancy. 2. Recommend routine screening mammography in one year. BI-RADS Category 1: Negative Reviewed, dictated and finalized at location A.
== END 2022-11-22 15:06 | disposition home or self-care (01) ==
LOC: ANHIMG 15:06
PROVIDERS: PCP Family Medicine; Visit Provider Nurse Practitioner Obstetrics & Gynecology
DX: Z12.31 Encounter for screening mammogram for malignant neoplasm of breast (principal)
CPT/HCPCS: 77063; 77067

== ENCOUNTER 2022-12-02 08:25 | Emergency (ER) | payer OTHER, SELFPAY ==
--- NOTE | ~2022-12-02 | XR_ITS ---
EXAMINATION: XR ribs LT 2V DATE: 12/02/2022 09:04 INDICATION: Left chest pain. Fall. TECHNIQUE: 2 views of the left ribs on 4 radiographs were obtained. COMPARISON: None. FINDINGS: There is mild atelectasis in left lower lung zone. No left-sided pleural effusion or pneumo thorax. There are changes of posterior fusion procedure in lumbar spine. IMPRESSION: 1. No rib fracture. Reviewed, dictated and finalized at location A. IMPRESSION: 1. No rib fracture.
[2022-12-02 08:25] VITALS: BP 136/74; PULSE 75; RESP 16; TEMP 36.1; O2SAT 96
[2022-12-02 08:35] VITALS: BP 136/74; PULSE 75; RESP 16; TEMP 36.1; O2SAT 96
--- NOTE | 2022-12-02 08:45 | ED.FALL ---
HPI - Fall General Chief Complaint: Fall Stated Complaint: fall; left side rib pain Time Seen by Provider: 12/02/22 08:44 Source: patient and RN notes reviewed Mode of arrival: ambulatory Limitations: no limitations History of Present Illness HPI Narrative: Patient states that she slipped in the tub last night falling onto her left ribcage with that side of her chest hitting the edge of the tub. She says it hurts to take a deep breath. nothing really makes it better. complaint: fall Onset (ago): day(s) (1) Fall from: standing Fall witnessed: no Place fall occurred: home Loss of consciousness: none Prolonged down time: no Symptoms prior to fall: none Context: tripped/slipped Location of injury: chest Severity: moderate Quality: dull and aching Associated symptoms (after fall): denies Related Data Home Medications Medication Instructions Recorded Confirmed duloxetine 30 mg capsule,delayed 60 mg PO DAILY 06/19/20 12/02/22 release tramadol 50 mg tablet See Rx Instructions .Route 06/19/20 12/02/22 .COMPLEX PRN Pain gabapentin 600 mg tablet 600 mg PO TID 04/18/21 12/02/22 hydrocodone 7.5 mg-acetaminophen 1 tablet PO TID 04/18/21 12/02/22 325 mg tablet Allergies Allergy/AdvReac Type Severity Reaction Status Date / Time No Known Allergies Allergy Verified 12/02/22 08:33 Review of Systems Review of Systems: All systems reviewed & are unremarkable except as noted in HPI and below PMFSH Past Medical History Medical History Abdominal pain Back pain Depression Obesity Pancreatitis Pre-diabetes Surgical History Surgical History Previous back surgery spinal fusion 2018 Status post Status post carpal tunnel release Status post tonsillectomy Social History Social History Smoking packs per day: 1 Smoking cigarettes per day: 20.0 Years smoked: 20 Smoking pack-years: 20.00 Smoking status: Former smoker Tobacco type: cigarettes Second hand tobacco smoke exposure: No Alcohol intake: never Drinks per week: 0 Alcohol use details: 2 TIMES PER YEAR Substance use: never Substance use type: does not use Lack of Transportation: No Lack of Food: Never True Current Housing: I Have Housing Concerned About Future Housing: No Difficulty Paying Gas/Electric Bills: No Difficulty Paying for Meds: No Currently Unemployed: No Education: High School Diploma/GED Difficulty w/ Childcare or Family Care: No Living arrangements: with family Spiritual care concerns: No Exam Const: General: healthy appearing, no acute distress and alert Nutritional Appearance: well nourished Orientation/consciousness: patient oriented x3 Limitations: no limitations HENMT: Head: normal to inspection Ears: external ears normal Face/Nose/Sinus: Normal external nose present Face and sinus: normal facial exam Mouth: Yes moist mucous membranes Eyes: Conjunctivae: conjunctivae normal Pupils: Equal, round and reactive pupils present EOM: EOMs intact bilaterally Neck: Neck: normal visual inspection Chest: Chest palpation & inspection: tenderness rib left mid-clavicular line involving the 5th rib, involving the 6th rib and involving the 7th rib Resp: Effort & Inspection: normal respiratory effort Auscultation: clear to auscultation bilaterally Cardio: Rate: regular rate Rhythm: regular rhythm GI: GI Palp: Yes Soft to palpation and No Tenderness to palpation present (GI) Auscultation: normal bowel sounds Back/Spine/Pelvis: Cervical Spine: cervical ROM normal Thoracic/Lumbar Spine: thoraco-lumbar ROM normal Skin: General skin exam: normal color Rashes: no rashes Neuro: General: patient oriented x3, moves all extremities, no focal motor deficits and CN's II-XI intact bilaterally Speech: normal speech Gait exam (Deniz
[2022-12-02] MEDS: KETOROLAC 30 MG/ML VIAL (*BKC) IM (09:13)
== END 2022-12-02 09:24 | disposition home or self-care (01) ==
PROVIDERS: Emergency Provider Emergency Medicine; PCP Family Medicine
DX: S20.212A Contusion of left front wall of thorax, initial encounter (principal); Z79.891 Long term (current) use of opiate analgesic; Z87.891 Personal history of nicotine dependence; W18.2XXA Fall in (into) shower or empty bathtub, initial encounter
CPT/HCPCS: 71100; 96372; 99283; J1885

== ENCOUNTER → 2023-02-24 09:23 | Outpatient (CLI) | payer OTHER, SELFPAY ==
--- NOTE | ~2023-02-24 | XR_ITS ---
Lumbosacral Spine: AP and lateral views Clinical History: Pain Findings: Stable dextroscoliosis. There is stable posterior fusion hardware L4-L5. No acute fracture or subluxation seen. There is advanced degenerative disc narrowing at L5-S1. The sacroiliac joints ar e normally outlined. Impression: Stable dextroscoliosis and posterior fusion from L4 to L5. Severe degenerative disc narrowing at L5-S1. Reviewed, dictated and finalized at location . Impression: Stable dextroscoliosis and posterior fusion from L4 to L5. Severe degenerative disc narrowing at L5-S1.
== END ==
PROVIDERS: PCP Family Medicine
DX: M41.86 Other forms of scoliosis, lumbar region (principal); M99.73 Connective tissue and disc stenosis of intervertebral foramina of lumbar region; G89.4 Chronic pain syndrome; M47.817 Spondylosis without myelopathy or radiculopathy, lumbosacral region
CPT/HCPCS: 72100

== ENCOUNTER → 2023-02-24 09:32 | Outpatient (CLI) | payer OTHER, SELFPAY ==
--- NOTE | ~2023-02-24 | XR_ITS ---
EXAMINATION: XR foot LT min 3V, XR ankle LT min 3V DATE: 02/24/2023 10:17 INDICATION: Left foot pain TECHNIQUE: 1. Anteroposterior, mortise, additional oblique and lateral view of the left ankle were obtained. 2. Dorsoplantar, two oblique and lateral views of the left foot were obtained. COMPARISON: None. FINDINGS: Alignment of the foot and ankle is normal. No fracture or osteochondral lesion. Mild osteoarthritis a t the first metatarsophalangeal and a few interphalangeal joints. Moderate size plantar calcaneal spu r. Bone island at the distal left tibial diaphysis. No ankle joint effusion. The soft tissues are unr emarkable. IMPRESSION: 1. No acute osseous abnormality. 2. 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 IMPRESSION: 1. No acute osseous abnormality. 2. Moderate-sized plantar calcaneal spur and mild polyarticular osteoarthritis in the forefoot
== END ==
PROVIDERS: PCP Family Medicine; Visit Provider Family Medicine
DX: M77.32 Calcaneal spur, left foot (principal); M19.072 Primary osteoarthritis, left ankle and foot
CPT/HCPCS: 73610; 73630

== ENCOUNTER → 2023-06-16 10:52 | Outpatient (CLI) | payer OTHER, SELFPAY ==
--- NOTE | ~2023-06-16 | XR_ITS ---
EXAMINATION: XR cervical spine 4-5V DATE: 06/16/2023 12:00 INDICATION: Cervical radiculopathy. TECHNIQUE: 5 views of cervical spine including standing views were obtained. COMPARISON: None. FINDINGS: There is kyphosis of lower cervical spine. There is 8 degrees levocurvature of cervical spi ne. Vertebral body heights are normal. There is mildly decreased disc height at C4-C5 and moderately decreased disc height at C5-C6 and C6-C7. There is multilevel facet joint osteoarthritis, severe at C 7-T1. There is multilevel uncovertebral joint osteoarthritis, severe on the left at C5-C6. There is m ild central canal stenosis at C5-C6 and C6-C7. No prevertebral soft tissue swelling. IMPRESSION: 1. Moderate cervical spondylosis. Reviewed, dictated and finalized at location A. CURLER
== END ==
PROVIDERS: PCP Pain Medicine Interventional Pain Medicine; Visit Provider Pain Medicine Interventional Pain Medicine
DX: M47.22 Other spondylosis with radiculopathy, cervical region (principal); M47.23 Other spondylosis with radiculopathy, cervicothoracic region
CPT/HCPCS: 72050

== ENCOUNTER 2023-07-23 06:02 | Emergency (ER) | payer OTHER, SELFPAY ==
--- NOTE | ~2023-07-23 | CT_ITS ---
Noncontrast CT scan of the lumbar spine CLINICAL HISTORY: Back pain TECHNIQUE: Axial noncontrast imaging of the lumbar spine was performed. Sagittal and coronal reformat yrn images were constructed. Dose reduction technique was used on this scan by utilizing automated ex posure control and iterative reconstruction technique. The dose-length product (DLP) was 1339.00 mGy- cm. FINDINGS: There is posterior fusion from L4 to L5, bilateral rods and transpedicular screws present. Probable posterior L4 level decompression/laminectomy. There is minimal grade 1 retrolisthesis of L2 over L3. There is minimal grade 1 retrolisthesis of L5 over S1. At L1-L2, there is mild disc narrowing. No definite disc bulge or herniation. No spinal canal stenosi s or definite neural foraminal narrowing. At L2-L3, there is mild degenerative disc narrowing. There is minimal disc bulge. No central canal st enosis. There is probable mild to moderate bilateral neural foraminal narrowing. At L3-L4, there is mild to moderate degenerative disc narrowing. There is disc bulge and facet hypert rophy, with probable mild central canal stenosis. There is moderate to advanced bilateral neural fora maikel narrowing. At L4-L5, there is posterior decompression without demond canal stenosis. There is probable mild bilat eral neural foraminal narrowing. At L5-S1, there is advanced degenerative disc narrowing. There is minimal disc bulge. No central sandra l stenosis. There is advanced right neural foraminal narrowing, and mild to moderate left neural fora maikel narrowing. Paravertebral soft tissues are unremarkable, aside from expected postoperative change. Impression: Posterior fusion from L4 to L5, as detailed above. Minimal grade 1 retrolisthesis of L2 over L3, and of L5 over S1. Mild to moderate degenerative spondylitic changes, as above. Reviewed, dictated and finalized at [facility] M. MOBILE DESIGNER Impression: Posterior fusion from L4 to L5, as detailed above. Minimal grade 1 retrolisthesis of L2 over L3, and of L5 over S1. Mild to moderate degenerative spondylitic changes, as above.
[2023-07-23 06:15] VITALS: BP 136/64; PULSE 98; RESP 20; TEMP 36.6; O2SAT 95
--- NOTE | 2023-07-23 06:20 | ED.GENADULT ---
HPI - General Adult General Chief complaint: Back Pain/Injury <Reji Louie MD - Last Filed: 07/23/23 07:01> Stated complaint: back pain <Reji Louie MD - Last Filed: 07/23/23 07:01> Time Seen by Provider: 07/23/23 07:26 <Reji Louie MD - Last Filed: 07/23/23 07:01> Source: patient <Reji Louie MD - Last Filed: 07/23/23 07:01> Mode of arrival: ambulatory <Reji Louie MD - Last Filed: 07/23/23 07:01> Limitations: no limitations <Reji Louie MD - Last Filed: 07/23/23 07:01> History of Present Illness HPI narrative: 52-year-old white female complains of history of chronic back pain with back surgery in the past goes to pain management picked up a heavy bucket a couple days ago re-injured her back. Pain 0 lower back radiates down her left leg. Complains of more pain this morning 01/27. Denies any numbness or tingling or saddle paresthesias or urinary or fecal incontinence. Denies any fever she is getting over a cough and a cold. Denies any problems eating or drinking voiding or stooling swelling lumps or bumps weakness or numbness. Denies any rash or itching bleeding or bruising dizziness or lightheadedness or any other complaints. pain is worse when she is moving or bending. Patient goes to pain management [facility] and is on [place] 10s June 27 and tramadol 50 filled June 30 and Flexeril filled July 08 of her inspect review. She is his primary care provider Dr. Santos. <Reji Louie MD - Last Filed: 07/23/23 07:01> Related Data Home medications: Home Medications Medication Instructions Recorded Confirmed duloxetine 30 mg capsule,delayed 60 mg PO DAILY 06/19/20 07/23/23 release tramadol 50 mg tablet See Rx Instructions .Route 06/19/20 07/23/23 .COMPLEX PRN Pain gabapentin 600 mg tablet 600 mg PO TID 04/18/21 07/23/23 hydrocodone 7.5 mg-acetaminophen 1 tablet PO TID 04/18/21 07/23/23 325 mg tablet cyclobenzaprine 10 mg tablet 10 mg PO PRN 07/23/23 07/23/23 <Reji Louie MD - Last Filed: 07/23/23 07:01> Allergies/adverse reactions: Allergies Allergy/AdvReac Type Severity Reaction Status Date / Time No Known Allergies Allergy Verified 12/02/22 08:33 <Reji Louie MD - Last Filed: 07/23/23 07:01> Review of Systems Review of Systems: All systems reviewed & are unremarkable except as noted in HPI and below <Reji Louie MD - Last Filed: 07/23/23 07:01> PMFSH Past Medical History Medical History: Medical History Abdominal pain Back pain Depression Obesity Pancreatitis Pre-diabetes <Reji Louie MD - Last Filed: 07/23/23 07:01> Surgical History Surgical History: Surgical History Previous back surgery spinal fusion 2018 Status post Status post carpal tunnel release Status post tonsillectomy <Reji Louie MD - Last Filed: 07/23/23 07:01> Social History Social History: Social History Smoking packs per day: 1 Smoking cigarettes per day: 20.0 Years smoked: 20 Smoking pack-years: 20.00 Smoking status: Former smoker Tobacco type: cigarettes Second hand tobacco smoke exposure: No Alcohol intake: never Drinks per week: 0 Alcohol use details: 2 TIMES PER YEAR Substance use: never Substance use type: does not use Lack of Transportation: No Lack of Food: Never True Current Housing: I Have Housing Concerned About Future Housing: No Difficulty Paying Gas/Electric Bills: No Difficulty Paying for Meds: No Currently Unemployed: No Education: High School Diploma/GED Difficulty w/ Childcare or Family Care: No Living arrangements: with family Spiritual care concerns: No <MD Christopher Frias L
[2023-07-23] MEDS: HYDROmorphone HCL INJ (*CRX) 2 MG/ML VIAL 1 MG IM (06:49)
[2023-07-23 08:00] VITALS: BP 142/86; PULSE 90; RESP 20; TEMP 36.7; O2SAT 96
== END 2023-07-23 08:06 | disposition home or self-care (01) ==
PROVIDERS: Emergency Provider Internal Medicine Critical Care Medicine; PCP Family Medicine
DX: M54.42 Lumbago with sciatica, left side (principal); Z79.899 Other long term (current) drug therapy; Z79.891 Long term (current) use of opiate analgesic; Z87.891 Personal history of nicotine dependence
CPT/HCPCS: 72131; 96372; 99284; J1170

== ENCOUNTER 2023-07-29 14:52 | Outpatient (CLI) | payer OTHER, SELFPAY ==
--- NOTE | ~2023-07-29 | XR_ITS ---
EXAMINATION: XR chest 2V Exam Date/Time: 07/29/2023 15:04 SCAFFOLD BUILDER HISTORY: COUGH AND CONGESTION X 16 DAYS Comparison: 01/22/2022, 04/19/2021. RESULT: Lines, tubes, and devices: None. Lungs and pleura: Clear. Cardiomediastinal silhouette: Stable. Other: No acute osseous or upper abdominal finding. IMPRESSION: No acute cardiopulmonary process. Reviewed, dictated and finalized at location K. FOLD BUILDER
== END 2023-07-29 14:53 | disposition home or self-care (01) ==
LOC: CHSIMG 14:55
PROVIDERS: PCP Family Medicine; Visit Provider Family Medicine
DX: R05.1 Acute cough (principal)
CPT/HCPCS: 71046

== ENCOUNTER 2024-05-31 09:07 | Outpatient (CLI) | payer OTHER, SELFPAY ==
--- NOTE | ~2024-05-31 | XR_ITS ---
3 VIEWS LUMBAR SPINE Ordering provider: Kaleb Fernandez MD History: . Lumbago with sciatica, right side . Comparison: None. FINDINGS: VERTEBRAL BODIES:No visible fracture or subluxation. Dextroscoliosis. Postoperative changes at the le terence of L4-L5. Degenerative changes of the spine. DISK SPACES: Narrowing of the disc L1-L2, L2-L3, L3-L4 and L5-S1. SOFT TISSUES: Aortic calcifications. Calcifications seen in the left renal area. IMPRESSION: No acute osseous abnormality lumbar spine. Postoperative changes at the level of L4-L5. Dextroscoliosis. Multilevel degenerative disc disease. Reviewed, dictated and finalized at location A. ESTHETICIAN IMPRESSION: No acute osseous abnormality lumbar spine. Postoperative changes at the level o f L4-L5. Dextroscoliosis. Multilevel degenerative disc disease.
--- NOTE | ~2024-05-31 | XR_ITS ---
EXAMINATION: XR thoracic spine 3V DATE: 05/31/2024 09:24 INDICATION: Pain in thoracic spine. TECHNIQUE: 3 views of thoracic spine standing were obtained. COMPARISON: Thoracic spine radiographs 05/23/2022 FINDINGS: There is a degrees levocurvature of the spine. Vertebral body heights are normal. There is mildly decreased disc height at multiple levels in thoracic spine. There is mildly decreased disc hei ght at T5-T6 and T9-T10. There are endplate osteophytes at most levels. IMPRESSION: 1. Stable moderate thoracic spondylosis. Reviewed, dictated and finalized at location A. YING AND CALKING SUPERVISOR
== END 2024-05-31 09:08 | disposition home or self-care (01) ==
PROVIDERS: PCP Family Medicine; Visit Provider Family Medicine
DX: M43.04 Spondylolysis, thoracic region (principal); M54.41 Lumbago with sciatica, right side
CPT/HCPCS: 72072; 72100

== ENCOUNTER 2024-06-15 16:15 | Outpatient (RCR) | payer OTHER, SELFPAY ==
--- NOTE | 2024-06-15 17:55 | OPREHPOC ---
Outpatient Therapy Plan of Care This is a Multidisciplinary Plan of Care that may contain components documented by all disciplines (PT, OT, and ST.) PT Problem 1 PT Problem #1 Knowledge Deficit PT Goal 1 Goal / Goal Update The patient will be independent in a home exercise program. Target Visit 4 PT Problem 2 PT Problem #2 Pain PT Goal 1 Goal / Goal Update The patient will report no greater than 3/10 low back pain with driving 1 hour to complete job duties. Target Visit 12 PT Problem 3 PT Problem #3 Impaired Functional Mobil PT Goal 1 Goal / Goal Update 1. The patient demonstrate 30% or less self perceived disability per the Back Index questionnaire. 2. The patient will ambulate 1,000 feet during the 6 minute walk test to improve community ambulation. Target Visit 12 PT Problem 4 PT Problem #4 Impaired Strength PT Goal 1 Goal / Goal Update The patient will demonstrate 4+/5 R LE strength in all myotomes without cogwheeling noted.
--- NOTE | 2024-06-15 17:55 | PTOPEVAL1 ---
Assessment and note entered by Dorene Hernandez, PT Evaluation Information Assessment Status Evaluation ICD-10 Condition Codes (PT) M54.16 Other ICD-10 Condition Codes ( M54.41, M54.46 PT) Onset 05/22/24 Subjective Information Deana Hannah reports she has chronic low back pain that is worse on the right side and she fell on when she slipped in water and that has caused the pain to shoot down the back of her thigh. She went to the ER right after the fall and several x-rays were performed that came back normal. She continued to have worsening pain and she then saw her PCP on 05/24/24 and was sent for additional x-rays to make sure no fractures were missed. She is having shooting pain in the right leg that is not provoked by certain motions that she has noticed. She does note pain is worse towards the end of the day. She is having difficulty with prolonged driving (45-60 minutes) which limits her ability to perform job activities . She notes any position for too long or overactivity makes her pain worse. She is using ice, naproxen, ibuprofen, and occasionally hydrocodone. Reported Pain Level Pain Score 4: Self Report Assessment PT Clinical Summary Deana Hannah presents with chronic low back pain with radiation to the right LE since sustaining a fall on 05/22/24. She has difficulty with prolonged activity, prolonged positions, and worsening of symptoms throughout the day. She objectively demonstrates decreased lumbar AROM, decreased core and hip strength, decreased hamstring flexibility , and positive special tests for R lumbar nerve root irritation. She will benefit from skilled PT to address these limitations. Plan of Care Interventions Electrical Stimulation,Hot Pack/Cold Pack,Manual Therapy,Mechanical Traction,Neuro Re-education, Patient/Caregiver Educati,Therapeutic Activities, Therapeutic Exercise PT Services Indicated Yes Treatment Frequency and 3 times a week for 12 visits Duration These treatments will address the objective and functional deficits as defined above. The patient will be advanced safely and appropriately in order for the patient to progress towards his/her prior level of function. Additional exercises will be introduced and as well as a comprehensive home exercise program upon discharge, if needed, ?to ensure carryover of functional gains achieved in the clinic. This treatment plan has been reviewed and agreement upon by the patient.
--- NOTE | 2024-07-09 08:59 | OPREHPOC ---
Outpatient Therapy Plan of Care This is a Multidisciplinary Plan of Care that may contain components documented by all disciplines (PT, OT, and ST.) PT Problem 1 PT Problem #1 Knowledge Deficit PT Goal 1 Goal / Goal Update The patient will be independent in a home exercise program. Target Visit 4 Progress Met PT Problem 2 PT Problem #2 Pain PT Goal 1 Goal / Goal Update The patient will report no greater than 3/10 low back pain with driving 1 hour to complete job duties. The patient will report no greater than 3/10 pain in the R shoulder Target Visit 12 PT Problem 3 PT Problem #3 Impaired Functional Mobility PT Goal 1 Goal / Goal Update 1. The patient demonstrate 30% or less self perceived disability per the Back Index questionnaire. 2. The patient will ambulate 1,000 feet during the 6 minute walk test to improve community ambulation. 3. patient will display lifting of 5lbs overhead to tall shelf x10 reps without increased R shoulder pain 4. patient to reach across body to dress, perform self care, and buckle seat belt in car without pain Target Visit 12 PT Problem 4 PT Problem #4 Impaired Strength PT Goal 1 Goal / Goal Update The patient will demonstrate 4+/5 R LE strength in all myotomes without cogwheeling noted. The patient will display 4+/5 or better R shoulder strength overall Target Visit 12
--- NOTE | 2024-07-09 09:00 | PTOPPROG ---
Assessment and note entered by JT File, PT Evaluation Information Assessment Status Progress ICD-10 Condition Codes (PT) Radiculopathy, lumbar region M54.16 Other ICD-10 Condition Codes ( M54.41, M54.46 PT) Onset 05/22/24 Subjective Information patient reports her back in general is worse than when she started. she reports she does not feel worse when she leaves therapy, but generally does not feel much improved. she reports she does feel better when doing her stretches at home. patient reports sitting too long will increase her back pain, as well as standing too long will also increase her back pain. she reports her DR has now sent over an order to evaluate and treat the R shoulder and R upper back. she reports she has increased pain and symptoms in the R shoulder with lifting objects and reaching across her body. any repetitive movement will also increase the pain. she reports the R shoulder feels the most pain and symptoms at the bottom of her shoulder blade. Assessment PT Clinical Summary mrs. mcallister presents to skilled PT services for her 5th skilled PT visit. she continues to have lower back pain, but now arrives to PT with an order to evaluate the R shoulder. she displays decreased rom, strength, and pain in the R shoulder with reaching overhead/across body. she would benefit from continued skilled PT to the lower back, but also the addition of the R shoulder to her POC to achieve new and previous goals for skilled PT. Plan of Care Interventions Electrical Stimulation,Hot Pack/Cold Pack,Manual Therapy,Mechanical Traction,Neuro Re-education, Patient/Caregiver Education,Therapeutic Activities ,Therapeutic Exercise PT Services Indicated Yes Treatment Frequency and continue skilled PT per initial POC with the Duration addition of treatment/therapy of the R shoulder These treatments will address the objective and functional deficits as defined above. The patient will be advanced safely and appropriately in order for the patient to progress towards his/her prior level of function. Additional exercises will be introduced and as well as a comprehensive home exercise program upon discharge, if needed, ?to ensure carryover of functional gains achieved in the clinic. This treatment plan has been reviewed and agreement upon by the patient.
--- NOTE | 2024-07-09 10:10 | PCPTNOTE ---
Cancelled session due to illness
--- NOTE | 2024-07-28 15:15 | OPREHPOC ---
Outpatient Therapy Plan of Care This is a Multidisciplinary Plan of Care that may contain components documented by all disciplines (PT, OT, and ST.) PT Problem 1 PT Problem #1 Knowledge Deficit PT Goal 1 Goal / Goal Update The patient will be independent in a home exercise program. Target Visit 4 Progress Met PT Problem 2 PT Problem #2 Pain PT Goal 1 Goal / Goal Update The patient will report no greater than 3/10 low back pain with driving 1 hour to complete job duties. The patient will report no greater than 3/10 pain in the R shoulder Target Visit 12 Progress Partially Met PT Problem 3 PT Problem #3 Impaired Functional Mobility PT Goal 1 Goal / Goal Update 1. The patient demonstrate 30% or less self perceived disability per the Back Index questionnaire. 2. The patient will ambulate 1,000 feet during the 6 minute walk test to improve community ambulation. 3. patient will display lifting of 5lbs overhead to tall shelf x10 reps without increased R shoulder pain 4. patient to reach across body to dress, perform self care, and buckle seat belt in car without pain Target Visit 12 Progress Not Met PT Problem 4 PT Problem #4 Impaired Strength PT Goal 1 Goal / Goal Update The patient will demonstrate 4+/5 R LE strength in all myotomes without cogwheeling noted. The patient will display 4+/5 or better R shoulder strength overall Target Visit 12 Progress Not Met
--- NOTE | 2024-07-28 15:16 | PTOPEVAL1 ---
Assessment and note entered by Sultana Amos, PT Evaluation Information Assessment Status Progress ICD-10 Condition Codes (PT) Pain in Thoracic Spine M54.6,Radiculopathy, lumbar region M54.16 Other ICD-10 Condition Codes ( MS54.41 PT) Onset 05/22/24 Subjective Information Mrs. Hannah presents to therapy with continued back and shoulder pain. She has not been able to attend therapy sessions for the last three weeks due to illness. She reports she thinks her shoulder pain is due to tightness and she feels like she has a knot somewhere near her shoulder that's causing her pain. Despite her illness she has been trying to continue with her back and shoulder exercises and stretches and states she feels better after doing them. She's been using her TENS unit at home as well. Reported Pain Level Pain Score 3,4: Self Report Assessment PT Clinical Summary Mrs. Hannah presents to physical therapy following a period of absence due to illness. She continues to have back pain radiating down below her R knee with numbness/tingling present almost constantly. She also continues to have R shoulder pain that occurs with lifting and performing various ADLs. She has been performing her exercises at home when she can and notices benefits with them. Mrs. Nino demonstrates gross weakness of both the shoulder and the lower extremities as well as impaired lumbar ROM with active movements. Currently she feels like her back pain is more egregious and would like put majority of focus on that. She can benefit from further skilled PT services to reduce pain and restore normal mechanics to help her return to her prior level of function. Plan of Care Interventions Electrical Stimulation,Gait Training,Hot Pack/Cold Pack,Manual Therapy,Neuro Re-education,Patient/ Caregiver Education,Therapeutic Activities, Therapeutic Exercise,Self-Care/Home Management PT Services Indicated Yes Treatment Frequency and 2x/week for 4 visits Duration These treatments will address the objective and functional deficits as defined above. The patient will be advanced safely and appropriately in order for the patient to progress towards his/her prior level of function. Additional exercises will be introduced and as well as a comprehensive home exercise program upon discharge, if needed, ?to ensure carryover of functional gains achieved in the clinic. This treatment plan has been reviewed and agreement upon by the patient.
--- NOTE | 2024-07-30 14:07 | PCPTNOTE ---
Patient called & cancelled scheduled appointment this date due to weather.
--- NOTE | 2024-08-11 16:38 | OPREHPOC ---
Outpatient Therapy Plan of Care This is a Multidisciplinary Plan of Care that may contain components documented by all disciplines (PT, OT, and ST.) PT Problem 1 PT Problem #1 Knowledge Deficit PT Goal 1 Goal / Goal Update The patient will be independent in a home exercise program. Target Visit 4 Progress Met PT Problem 2 PT Problem #2 Pain PT Goal 1 Goal / Goal Update The patient will report no greater than 3/10 low back pain with driving 1 hour to complete job duties. The patient will report no greater than 3/10 pain in the R shoulder Target Visit 12 Progress Met PT Problem 3 PT Problem #3 Impaired Functional Mobility PT Goal 1 Goal / Goal Update 1. The patient demonstrate 30% or less self perceived disability per the Back Index questionnaire. 2. The patient will ambulate 1,000 feet during the 6 minute walk test to improve community ambulation. 3. patient will display lifting of 5lbs overhead to tall shelf x10 reps without increased R shoulder pain 4. patient to reach across body to dress, perform self care, and buckle seat belt in car without pain - met Target Visit 12 Progress Met PT Problem 4 PT Problem #4 Impaired Strength PT Goal 1 Goal / Goal Update The patient will demonstrate 4+/5 R LE strength in all myotomes without cogwheeling noted. The patient will display 4+/5 or better R shoulder strength overall Target Visit 12 Progress Met
--- NOTE | 2024-08-11 16:38 | PTOPDC ---
Assessment and note entered by Sultana Amos, PT Evaluation Information Assessment Status Progress ICD-10 Condition Codes (PT) Pain in Thoracic Spine M54.6,Radiculopathy, lumbar region M54.16 Other ICD-10 Condition Codes ( MS54.41 PT) Onset 05/22/24 Subjective Information Deana reports she feels like her back is back to how it was before therapy. She reports her shoulder bothering her more lately but that it's also improved. She feels like her pain is manageable now and Reported Pain Level Pain Score 3,3: Self Report Assessment PT Clinical Summary Mrs. Hannah has attended 12 total skilled therapy visits to address low back and shoulder pain. She has made excellent progress in strength and ROM since beginning therapy and she feels like her pain is manageable at this point with her home exercises. She is independent with her HEP and has met all therapeutic goals set for her, therefore skilled PT intervention is no longer indicated. Plan of Care PT Services Indicated No
== END 2024-08-11 16:44 | disposition home or self-care (01) ==
LOC: CHSPT 16:15
PROVIDERS: Visit Provider Family Medicine
DX: M54.41 Lumbago with sciatica, right side (principal); M54.6 Pain in thoracic spine
CPT/HCPCS: 97014; 97110; 97140; 97161; G0283

== ENCOUNTER 2024-06-16 14:38 | Outpatient (CLI) | payer OTHER, SELFPAY ==
--- NOTE | ~2024-06-16 | MM_ITS ---
EXAMINATION: MM screening mello BI w edy HISTORY: Screening TECHNIQUE: Craniocaudal and mediolateral oblique 3-D tomosynthesis images were obtained and synthetic 2-D images were generated. CAD analysis was submitted and interpreted. COMPARISON: Comparison to multiple prior studies sequentially, with oldest reviewed study dated 11/14. BREAST PARENCHYMAL COMPOSITION: Not Dense: The breasts are almost entirely fatty. FINDINGS: There is no evidence of suspicious mass, calcification, or architectural distortion to sugg est malignancy in either breast. There has been no suspicious interval change. IMPRESSION: 1. No mammographic evidence of malignancy. 2. Recommend routine screening mammography in one year. BI-RADS Category 1: Negative Reviewed, dictated and finalized at location B. F ESTIMATOR
== END 2024-06-16 14:39 | disposition home or self-care (01) ==
LOC: ANHIMG 14:40
PROVIDERS: PCP Family Medicine; Visit Provider Obstetrics & Gynecology
DX: Z12.31 Encounter for screening mammogram for malignant neoplasm of breast (principal)
CPT/HCPCS: 77063; 77067

== ENCOUNTER 2024-06-30 16:51 | Outpatient (CLI) | payer OTHER, SELFPAY ==
[2024-06-30 17:14] LABS: Basophils Absolute Auto 0.09 K/mm3 (0.00-0.10); Basophils Percent Auto 0.9 % (0.0-1.0); Eosinophils Absolute Auto 0.42 K/mm3 (0.02-0.50); Eosinophils Percent Auto 4.3 % (1.0-6.0); Hematocrit 42.3 % (35.0-49.0); Hemoglobin 14.2 g/dL (12.0-15.0); Immature Granulocyte Absolute 0.07 K/mm3 (0.00-0.00); Immature Granulocyte Percent A 0.7 % (0.0-0.0); Lymphocytes Absolute Auto 3.15 K/mm3 (1.10-4.50); Lymphocytes Percent Auto 32.5 % (18.0-42.0); Mean Corpuscular HGB Conc 33.6 g/dL (32-36); Mean Corpuscular Hemoglobin 28.3 pg (27.0-31.0); Mean Corpuscular Volume 84.3 fL (78.0-102.0); Mean Platelet Volume 9.2 fl (9.2-11.8); Monocytes Absolute Auto 0.55 K/mm3 (0.10-0.90); Monocytes Percent Auto 5.7 % (2.0-11.0); Neutrophils Percent Auto 55.9 % (50.0-70.0); Platelet Count Result 431 K/mm3 (150-420); Red Blood Count 5.02 M/mm3 (4.20-5.40); White Blood Count 9.7 K/mm3 (4.8-10.8)
[2024-06-30 17:35] LABS: Anion Gap 8 mmol/L (4-12); Blood Urea Nitrogen 14 mg/dL (7-18); Calcium 10.1 mg/dL (8.5-10.1); Carbon Dioxide 29 mmol/L (21-32); Chloride 104 mmol/L (98-108); Estimated Glomerular Filt Rate > 60; Glucose 99 mg/dL (70-99); Osmolality Calculated 292 mOsm/kg (285-295); Potassium 4.8 mmol/L (3.5-5.1); Sodium 141 mmol/L (136-145)
[2024-06-30 17:37] LABS: Hemoglobin A1C 6.5 % (<5.7)
== END 2024-06-30 16:52 | disposition home or self-care (01) ==
LOC: CHSLAB 16:53
PROVIDERS: PCP Family Medicine; Visit Provider Family Medicine
DX: E11.9 Type 2 diabetes mellitus without complications (principal)
CPT/HCPCS: 36415; 80048; 83036; 85025

== ENCOUNTER 2024-10-11 16:00 | Outpatient (CLI) | payer OTHER, SELFPAY ==
--- NOTE | ~2024-10-11 | XR_ITS ---
XR foot LT min 3V Ordering provider: Kaleb Fernandez MD History: . pain in unspecified foot, bilat heel pain . Comparison: None. FINDINGS: BONES: No acute fracture or dislocation. JOINT SPACES: Normal. No tarsal coalition. SOFT TISSUES: Normal. Calcaneal spur. IMPRESSION: No acute osseous abnormality left foot. Reviewed, dictated and finalized at location A.
--- NOTE | ~2024-10-11 | XR_ITS ---
XR foot RT min 3V Ordering provider: Kaleb Fernandez MD History: . heel pain . Comparison: None. FINDINGS: BONES: No acute fracture or dislocation. JOINT SPACES: Normal. No tarsal coalition. SOFT TISSUES: Normal. Calcaneus spur. IMPRESSION: No acute osseous abnormality of the right foot. Reviewed, dictated and finalized at location A.
--- OUTSIDE RECORDS SUMMARY | 2024-10-11 18:21 | XMS_ITS | Clinical Summary ---
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 Active naproxen (NAPROSYN) 500 MG tablet Take 1 tablet (500 mg total) by mouth 2 (two) times daily with meals. Active DULoxetine (CYMBALTA) 60 MG capsule Take 1 capsule (60 mg total) by mouth daily. Active varenicline (CHANTIX) 1 MG tablet Take 1 tablet (1 mg total) by mouth 2 (two) times daily. Active pantoprazole EC (PROTONIX) 40 MG tablet Take 1 tablet (40 mg total) by mouth daily. Active methocarbamol (ROBAXIN) 750 MG Tab Take 1 tablet (750 mg total) by mouth 2 (two) times daily. 04/29/2022 Active gabapentin (NEURONTIN) 600 MG tablet Take 1 tablet (600 mg total) by mouth 2 (two) times daily. 04/29/2022 Active Docusate Sodium (DSS) 100 MG Cap Take 100 mg by mouth 2 (two) times daily as needed. Active multi vitamin/mineral s (THERA-M ENHANCED) tablet Take 1 tablet by mouth daily. 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, left 06/26/2022 Cholelithiasis 06/19/2022 Overview (07/03/2022): Added automatically from request for surgery [id number] Family History Medical History Relation Comments Cancer Father Diabetes Father Kidney Disease Father Cancer Maternal Grandmother Cancer Mother Cancer Paternal Grandmother Cancer Sister Relation Status Comments Father Maternal Grandmother Mother Paternal Grandmother Sister Social History Tobacco Use Types Packs/Day Years Used Date Smoking Tobacco: Every Day Cigarettes Smokeless Tobacco: Never Tobacco Cessation:Ready to Q uit: Not Asked; Counseling Given: Not Answered Alcohol Use Standard Drinks/Week Comments Yes 0 (1 standard drink = 0.6 oz pur e alcohol) occasional Comments No Sex and Gender Information Value Date Recorded Sex Assigned at Not on file Legal Sex Female 7:05 PM CDT Gender Identity Not on file Sexual Orientation Not on file Last Filed Vital Signs Vital Sign Reading Time Taken Comments Blood Pressure 125/52 05/22/2024 1:41 PM CDT Pulse 80 05/22/2024 12:30 PM CDT Temperature 35.9 C (96.6 F) 05/22/2024 12:21 PM CDT Respiratory Rate 16 05/22/2024 12:30 PM CDT Oxygen Saturation 100% 05/22/2024 1:40 PM CDT Inhaled Oxygen Concentration - - Weight 104.3 kg (230 lb) 05/22/2024 12:21 PM CDT Height 176.5 cm (5' 9.5 ) 05/22/2024 12:21 PM CD T Body Mass Index 33.48 05/22/2024 12:21 PM CDT Plan of Treatment Health Maintenance Due Date Last Done Comments Colorectal Cancer Screening Colonoscopy (10 Years) 1969 Annual Physical 1972 PHQ-2 (Physician [place]) 1981 Hepatitis C 01/01/1988 Hepatitis B Vaccines (1 of 3 - 19+ 3-dose series) 1988 Mammogram Screening 2009 Pneumococcal Vaccine: Pediatrics (0 to 5 Years) and At-Risk Patients (6 to 64 Years) (2 of 2 - PCV) 02/14/2013 02/15/2012 Cervical Cancer Screening Pap with HPV Testing (Age 30 to 64) Every 5 Years 01/24/2017 01/25/2012 COVID-19 Vaccine ( season) 2024 12/02/2020 Influenza Adult (#1) 2024 04/12/2020, 06/17/20 18 PHQ-2 (Physician [place]) 07/21/2024 Cervical Cancer Screening Pap Smear (Age 30 to 64) Every 3 Years 03/04/2027 03/04/2024, 08/26/2022, 03/29/2021, Additional history exists Cervical Cancer Screening with HPV 03/04/2027 DTaP, Tdap and Td Vaccines (4 - Td or Tdap) 03/19/2031 03/19/2021, 03/16/2021, 02/12/2012 Zoster Vaccines Completed 10/05/2020, 04/12/2020 Meningococcal B Vaccine Aged Out No l onger eligible based on patient's age to complete this topic Meningococcal Vaccine Aged Out No gurjit regino eligible based on patient's age to complete this topic RSV Immunizations Under 20 Months Aged Out No longer eligible based on patient's age to complete this topic Insurance [employer]ET[employer] Care Teams 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
--- OUTSIDE RECORDS SUMMARY | 2024-10-11 18:21 | XMS_ITS | Data Portability ---
Author Organization [facility] [place] Address [address] [place] [address] Care Team Providers Care Teacher Lip Reading Name Role Phone GREGORIA CONWAY Primary Care Provider [phone] Assessment Encounter Date Assessment Date Assessment LastModified by Organization Details LastModified Time 03/29/2021 03/29/2021 Annual gynecological exam performed. Patient will come back in a year unless there are new symptoms. Not available 03/29/2021 11:04:04 08/26/2022 08/26/2022 Annual gynecological exam performed. Patient will come back in a year unless there are new symptoms. Not available 08/26/2022 09:36:27 03/04/2024 03/04/2024 Annual gynecological exam performed. Patient will come back in a year unless there are new symptoms. [email or web address] Not available 03/04/2024 14:15:48 Plan of Treatment Reminders Order Date Submit Date Provider Last Modified By Organization Details Last Modified Time Details Appointments None recorded. Lab None recorded. Referral None recorded. Procedures None recorded. Surgeries None recorded. Imaging MAMMO, screening, digital, bilateral 2023 024 [facility], [address], [place], [address], 05:00:57 Medication Orders None recorded. Patient TargetsNo targets recorded. Patient InstructionsNo instructions recorded. Reason for Referral None Reported. 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 Locat ion: [place] [facility] Recei mega: 03/30 0002 First Scree n: Domingo Ferris, CT Speci men: Alicia nicole Pap - Image d, Cervi x STATE MENT OF ADEQU ACY: Satis facto ry for evalu ation Trans forma tion zone compo nent prese nt FINAL DIAGN OSIS: Negat joanne for Intra epith elial Lesio n or Michaelle monroy (NIL) Elect matty he zoila d by Domingo Ferris, CT on 2020 at 12:54 PM ----- ----- ----- ----- ----- ----- ----- ----- ----- ----- ----- ----- ----- ----- ----- ----- ----- ---- HPV RESUL TS: HPV mRNA E6/E7 : No HPV mRNA Detec yrn NOTE: This high risk HPV mRNA assay detec ts fourt een high- risk HPV types (16, 18, 31, 33, 35, 39, 45, 51, 52, 56, 58, 59, 66, 68) witho ut diffe renti ation . COMME NT: Note: This speci men was revie wed by a Cytot echno logis t and/o r Patho logis t (as indic ated in this repor t) after evalu ation using the Thinp rep Imagi ng Syste m. CLINI SUSSY INFOR MATIO N: Menst rual Statu s: LMP (if appli cable ): 016 Clini sussy Histo ry/Pr eviou s Pap: Type of Neopl gracie (if appli cable ): Signi fican t Clini sussy Findi ngs: Other Histo ry: Hormo justin (if appli cable ): PAP EDUCA IRISH L NOTE: The Pap Test is a scree bonnie test with an inher ent false negat joanne rate. Liqui d-bas e sampl ing may decre ase, but will not elimi melissa, false negat joanne resul ts. A negat joanne resul t does not precl ude the prese nce and/o r devel opmen t of disea se, since the prese nce of abnor mal cells in the sampl e depen ds on the locat ion of the lesio n and sampl ing techn ique. Brittany nued regul ar scree bonnie is the best metho d of cance r preve ntion . If repor yrn cytol ogic findi ng do not corre late with physi sussy and/o r histo rical findi ngs, furth er inves tigat ion is recom ginette d, as clini bassem mariano nted. 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 Elect matty he zoila d by Carlos Alberto Briceno am, CT on 023 at 11:15 AM ----- ----- ----- ----- ----- ----- ----- ----- ----- ----- ----- ----- ----- ----- ----- ----- ----- ---- HPV RESUL TS: HPV mRNA E6/E7 : No HPV mRNA Detec yrn NOTE: This high risk HPV mRNA assay detec ts fourt een high- risk HPV types (16, 18, 31, 33, 35, 39, 45, 51, 52, 56, 58, 59, 66, 68) witho ut diffe renti ation . COMME NT: Note: This speci men was revie wed by a Cytot echno logis t and/o r Patho logis t (as indic ated in this repor t) after evalu ation using the Thinp rep Imagi ng Syste m. CLINI SUSSY INFOR MATIO N: Menst rual Statu s: LMP (if appli cable ): Clini sussy Histo ry/Pr eviou s Pap: Type of Neopl gracie (if appli cable ): Signi fican t Clini sussy Findi ngs: Other Histo ry: Hormo justin (if appli cable ): PAP EDUCA IRISH L NOTE: The Pap Test is a scree bonnie test with an inher ent false negat joanne rate. Liqui d-bas ed sampl ing may decre ase, but will not elimi melissa, false negat joanne resul ts. A negat joanne resul t does not precl ude the prese nce and/o r devel opmen t of disea se, since the prese nce of abnor mal cells in the sampl e depen ds on the locat ion of the lesio n and sampl ing techn ique. Brittany nued regul ar scree bonnie is the best metho d of cance r preve ntion . If repor yrn cytol ogic findi ng do not corre late with physi sussy and/o r histo rical findi ngs, fur er inves tigat ion is recom ginette d, as clini bassem mariano nted. Not Available [facility] (Lab) [address], [place], [address], 08/28/2022 12:18:00 03/04/20 24 03/04/2024 IMAGE GUIDE D PAP AND HPV REGAR DLESS image guided Pap, HPV regardless of Pap result SEE RESULT S BELOW CASE REPOR T: Cytol ogy Gynec ologi sussy Repor t Case: [id number] Autho yousif chandra Provi brannon: Alicja Phelps MD Colle cted: 03/04 1451 Order ing Locat ion: [place] [facility] [place] Recei mega: 03/05 0746 First Scree n: Roxane Gomez ret, CT Rescr een: Mary [place], CT Speci men: Alicia nicole Pap - Image d, Cervi x STATE MENT OF ADEQU ACY: Satis facto ry for evalu ation Trans forma tion zone compo nent prese nt ----- ----- ----- ----- ----- ----- ----- ----- ----- ----- ----- ----- ----- ----- ----- ----- ----- ---- FINAL DIAGN OSIS: Negat joanne for Intra epith elial Gianfranco powell or Michaelle monroy (NIL) . Elect matty cummings d by Mary [place], CT on 2023 at 11:59 AM ----- ----- ----- ----- ----- ----- ----- ----- ----- ----- ----- ----- ----- ----- ----- ----- ----- ---- HPV RESUL TS: HPV mRNA E6/E7 : No HPV mRNA Detec yrn NOTE: This high risk HPV mRNA assay detec ts fourt een high- risk HPV types (16, 18, 31, 33, 35, 39, 45, 51, 52, 56, 58, 59, 66, 68) witho ut diffe renti ation . COMME NT: This speci men was revie wed by a Cytot echno logis t and/o r Patho logis t (as indic ated in this repor t) after evalu ation using the Thinp rep Imagi ng Syste m. CLINI SUSSY INFOR MATIO N: Menst rual Statu s: LMP (if appli cable ): Clini sussy Histo ry/Pr eviou s Pap: Type of Neopl gracie (if appli cable ): Signi fican t Clini sussy Findi ngs: Other Histo ry: Hormo justin (if appli cable ): PAP EDUCA IRISH L NOTE: The Pap Test is a scree bonnie test with an inher ent false negat joanne rate. Liqui d-bas ed sampl ing may decre ase, but will not elimi melissa, false negat joanne resul ts. A negat joanne resul t does not precl ude the prese nce and/o r devel opmen t of disea se, since the prese nce of abnor mal cells in the sampl e depen ds on the locat ion of the lesio n and sampl ing techn ique. [place] nued regul ar scree bonnie is the best metho d of cance r preve ntion . If repor yrn cytol ogic findi ng do not corre late with physi sussy and/o r histo rical findi ngs, furth er inves tigat ion is recom ginette d, as clini bassem mariano nted. Not Available [facility] (Lab) [address], [place], [address], 03/11/2024 13:03:28 04/05/20 21 MAMMO , scree bonnie, bilat eral No observ ation record ed. [facility] [address], [place], [address], 04/09/2021 16:47:21 Result Notes None recorded. Problems Name Problem SNOMED Code Status Onset Date Resolution Date Notes Provider Name and Address Organization Details Recorded Time Screenin g for malignan t neoplasm of cervix Completed 201203/28/2021 Pap Smear;Pra ctice ID: [address] [facility] 17:12:04 Screenin g for malignan t neoplasm of rectum Completed 201203/28/2021 Screening for malignant neoplasms of the rectum;Pr actice ID: [address] [facility] 17:12:05 Postpart um care Completed 201103/28/2021 Routine postpartu m follow-up ;Recorded Elsewhere : No Locati on: [facility] So urce: EHR Chron ic: N Practic e ID: 0001 Bill able Time: 05:33:[address] [facility] 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 17:12:08 Acute vaginiti s [id number] Completed 201503/28/2021 Acute vaginitis ;Practice ID: 0001 Dayana Naylor [facility] 17:11:31 Insertio n of intraute rine contrace ptive device Completed 201103/28/2021 INSERTION OF IUD;Recor ded Elsewhere : No Locati on: [facility] So urce: EHR Chron ic: N Practic e ID: 0001 Bill able Time: 08:00:00 AM Dayana Naylor [facility] 17:11:46 Speciali zed medical examinat ion Completed 201203/28/2021 Gynecolog ical Examinati on;Record ed Elsewhere : No Locati on: [facility] So urce: EHR Chron ic: N Practic e ID: 0001 Bill able Time: 05:00:00 PM Dayana Naylor null, [facility] 1 17:12:[address] Concept Completed 201503/28/2021 Encntr for general adult medical exam w/o abnormal findings; Recorded Elsewhere : No Locati on: [facility] So urce: EHR Chron ic: N Practic e ID: 0001 Bill able Time: 02:00:[address] [facility] 1 17:12:07 Deliveri es by [id number] Completed 201103/28/2021 delivery, without mention of indicatio n, unspecifi ed as to episode of care;Huey rded Elsewhere : No Locati on: [facility] So urce: EHR Chron ic: N Practic e ID: 0001 Bill able Time: 10:00:00 AM Dayana Naylor [facility] 17:11:38 Breast cancer genetic marker of medardocepti bildante detected [id number] Completed 201303/28/2021 Genetic susceptib ility to malignant neoplasm of breast;Re corded Elsewhere : No Locati on: [facility] So urce: EHR Chron ic: N Practic e ID: 0001 Bill able Time: 10:00:00 AM Dayana sams [facility] 17:11:36 Dysfunct ional uterine bleeding Completed 201203/28/2021 Other disorders of menstruat ion and other abnormal bleeding from female genital tract;Rec orded Elsewhere : No Locati on: [facility] So urce: EHR Chron ic: N Practic e ID: 0001 Bill able Time: 10:45:[address] [facility] 17:11:39 Irregula r periods [id number] Completed 201303/28/2021 Irregular menstrual cycle;Rec orded Elsewhere : No Locati on: [facility] So urce: EHR Chron ic: N Practic e ID: 0001 Bill able Time: 04:15:[address] [facility] 17:11:48 Family planning surveill ance Completed 201103/28/2021 Contracep tive surveilla nce, unspecifi ed;Record ed Elsewhere : No Locati on: [facility] So urce: EHR Chron ic: N Practic e ID: 0001 Bill able Time: 02:00:[address] [facility] 17:11:42 Body mass index 30+ - obesity [id number] Completed 201703/28/2021 Body mass index (BMI) 36.0-36.9 , adult;Rec orded Elsewhere : No Locati on: [facility] So urce: EHR Chron ic: N Practic e ID: 0001 Bill able Time: 01:00:00 PM Dayana Naylor [facility] 17:11:34 Follow-u p risk drug assessme nt Completed 201103/28/2021 Follow-up examinati on following completed treatment with high-risk medicatio n, not elsewhere classifie d;Recorde d Elsewhere : No Locati on: [facility] So urce: EHR Chron ic: N Practic e ID: 0001 Bill able Time: 11:00:[address] [facility] 17:11:45 Female genital organ symptoms [id number] Completed 201303/28/2021 Unspecifi ed symptom associate d with female genital organs;Re corded Elsewhere : No Locati on: [facility] So urce: EHR Chron ic: N Practic e ID: 0001 Bill able Time: 09:15:00 AM Dayana Naylor [facility] 17:11:43 Procedur e on genitour inary system Completed 201303/28/2021 Steriliza tion;Huey rded Elsewhere : No Locati on: [facility] So urce: EHR Chron ic: N Practic e ID: 0001 Bill able Time: 10:00:00 AM Dayana sams [facility] 17:12:00 Postoper ative follow-u p visit Completed 201303/28/2021 Follow-up examinati on, following unspecifi ed surgery;R ecorded Elsewhere : No Locati on: [facility] So urce: EHR Chron ic: N Practic e ID: 0001 Bill able Time: 10:00:00 AM Dayana sams [facility] 17:11:50 Abdomina l pain [id number] Completed 201103/28/2021 Abdominal pain, other specified site;Huey rded Elsewhere : No Locati on: [facility] So urce: EHR Chron ic: N Practic e ID: 0001 Bill able Time: 05:33:00 AM Dayana sams [facility] 17:11:29 Dysmenor jessica [id number] Completed 201303/28/2021 Dysmenorr hea;Recor ded Elsewhere : No Locati on: [facility] So urce: EHR Chron ic: N Practic e ID: 0001 Bill able Time: 04:15:00 PM Dayana sams [facility] 17:11:40 Pregnanc y test negative [id number] Completed 201103/28/2021 examinati on or test, negative result;Re corded Elsewhere : No Locati on: [facility] So urce: EHR Chron ic: N Practic e ID: 0001 Bill able Time: 08:00:00 AM Dayana sams [facility] 17:11:54 Primigra mari [id number] Completed 201103/28/2021 Supervisi on of normal first ;Practice ID: 0001 Dayana sams [facility] 17:11:58 Routine antenata l care Completed 201103/28/2021 Supervisi on of other normal ;Practice ID: 0001 Dayana Naylor [facility] 17:12:02 Prematur e rupture of membrane s with antenata l problem [id number] Completed 201103/28/2021 Premature rupture of membranes , antepartu m;Practic e ID: 0001 Dayana Naylor [facility] 17:11:56 Amenorrh ea [id number] Completed 201403/28/2021 Amenorrhe a;Recorde d Elsewhere : No Locati on: [facility] So urce: EHR Chron ic: N Practic e ID: 0001 Bill able Time: 09:00:00 [facility]11[facility]32 Problem Notes None recorded. Procedures Surgical History Date Name Laterality Status Provider Name and Address Organization Details Recorded Time 03/29/20 21 Date of Last Pap Smear completed [facility] 08/26/2022 09:39:27 03/29/20 21 Date of Last Mammogram completed [facility] 03/29/2021 11:10:24 10/20/19 21 completed [facility] 03/29/2021 11:05:13 10/20/19 21 Date of Last Colonoscopy completed [facility] 03/29/2021 11:05:13 Caesarean Section completed [facility] 03/29/2021 11:05:24 Orthopedic Surgery completed [facility] 08/26/2022 09:37:43 Other completed [facility] 08/26/2022 09:37:43 Cholecystectomy completed [facility] 08/26/2022 09:37:43 procedure on upper arm completed [facility] 03/08/2020 15:53:15 Tonsillectomy completed [facility] 03/08/2020 15:53:21 Tubal Ligation completed [facility] 03/08/2020 15:53:26 exploration of spinal fusion completed [facility] 03/08/2020 15:53:38 Imaging Results Imaging Date Name Status LastModified by Organiz ation Details LastModified Time 04/05/2021 MAMMO, screening, bilateral completed [facility] [address], [place], [address], 04/09/2021 16:47:21 Procedure Notes None recorded. Medical Equipment None Reported. Allergies No known drug allergies Medications Name Sig Start Date Stop Date Status Note LastModified by Organization Details LastModified Time Prometriu m 200 mg capsule take 1 capsule by oral route every day for 10 days in the evening 12/02 completed Prescrib diana Cooley e: No Locat ion: [facility] odify By: roberto quispe DateTime : 11/22/19 10:08:06 AM Not Available Not Available Not Available cyclobenz aprine 10 mg tablet TAKE 1 TABLET BY MOUTH EVERY DAY NEEDED active Not Available Not Available No t Available amoxicill in 500 mg capsule TAKE ONE CAPSULE BY MOUTH EVERY 8 HOURS UNTIL GONE 03/28 completed Not Available Not Available Not Available metformin 500 mg tablet TAKE 2 TABLETS BY MOUTH TWICE A DAY WITH MORNING AND EVENING MEALS active Not Available Not Available No t Available prednison e 10 mg tablet 03/28 completed Not Available Not Available Not Available gabapenti n 600 mg tablet TAKE 1 TABLET BY MOUTH THREE TIMES A DAY active Not Available Not Available No t Available azithromy juany 250 mg tablet TAKE 2 TABLETS BY MOUTH TODAY, THEN TAKE 1 TABLET DAILY FOR 4 DAYS DIRECTED 03/04 completed Not Available Not Available Not Available hydrocodo ne 5 mg-acetam inophen 325 mg tablet TAKE 1 TO 2 TABLETS BY MOUTH EVERY 6 HOURS NEEDED FOR PAIN 08/26 completed Not Available Not Available Not Available Doc-Q-Lac e 100 mg capsule take 1 capsule by oral route every day at bedtime as needed 03/29 completed Prescrib ed Elsewher e: Yes Loca tion: [facility] odify By: neri delciduntlay DateTime : 02/28/20 18 01:00:00 PM Not Available Not Available Not Available Motrin 600 mg tablet take 1 tablet by oral route 3 times every day with food 08/26 completed Prescrib ed Elsewher e: Yes Loca tion: [facility] odify By: ginna robledo DateTime : 02/20/20 12 03:45:00 PM Not Available Not Available Not Available sulfameth oxazole 800 mg-trimet hoprim 160 mg tablet TAKE 1 TABLET BY MOUTH EVERY 12 HOURS FOR 7 DAYS 03/04 completed Not Available Not Available Not Available hydrocodo ne 10 mg-acetam inophen 325 mg tablet TAKE 1 TABLET BY MOUTH TWICE DAILY NEEDED - M54.17 RADICULO JUANCARLOS, LUMBAR REGION active Not Available Not Available No t Available peg-elect rolyte solution 420 gram oral solution MIX AND DRINK UTD 03/29 completed Not Available Not Available Not Available tramadol 50 mg tablet TAKE 1 - 2 TABLET(S ) 3 TIMES A DAY M54.17 RADICULO JUANCARLOS, LUMBAR REGION,A S NEEDED active Not Available Not Available No t Available ondansetr on 8 mg disintegr ating tablet DISSOLVE 1 TABLET ON TONGUE 3 TIMES A DAY NEEDED FOR NAUSEA AND VOMITING FOR 5 DAYS 08/26 completed Not Available Not Available Not Available oxycodone 15 mg tablet take 1 tablet by oral route every 6 hours 06/09 completed Prescrib ed Elsewher e: Yes Loca tion: [facility] odify By: montse robledo DateTime : 02/20/20 12 03:45:00 PM Not Available Not Available Not Available ketorolac 10 mg tablet TAKE 1 TABLET BY MOUTH EVERY 8 HOURS NEED FOR PAIN 08/26 completed Not Available Not Available Not Available amoxicill in 875 mg tablet take 1 tablet by oral route every 12 hours 06/09 completed Prescrib ed Elsewher e: Yes [facility] By: montse robledo DateTime : 02/20/20 12 03:45:00 PM Not Available Not Available Not Available Metrogel Vaginal 0.75 % (37.5 mg/5 gram) insert 1 applicat orful by vaginal route every day at bedtime 02/27 completed Prescrib ed Elsewher e: No Locat ion: [facility] odify By: neri delcidunter DateTime : 02/01/20 16 01:35:35 PM Not Available Not Available Not Available methocarb mimi 750 mg tablet TAKE 1 TABLET BY MOUTH TWICE A DAY NEEDED 03/04 completed Not Available Not Available Not Available Depo-Prov era 150 mg/mL intramusc ular suspensio n inject 1 millilit er (150MG) by intramus cular route every 3 months 11/17 completed Prescrib ed Elsewher e: No Locat ion: [facility] odify By: amkraimundo Mckeon ncounter DateTime : 08/27/19 13 10:45:00 AM Not Available Not Available Not Available hydrocodo ne 7.5 mg-acetam inophen 325 mg tablet TAKE 1 TABLET BY MOUTH THREE TIMES DAILY NEEDED - M54.17 RADICULO JUANCARLOS, LUMBAR REGION 03/04 completed Not Available Not Available Not Available pantopraz ole 40 mg tablet,de layed release TAKE 1 TABLET BY MOUTH EVERY DAY active Not Available Not Available No t Available Ibuprofen 200 200 mg tablet 08/26 completed Not Available Not Available Not Available levofloxa juany 500 mg tablet TAKE 1 TABLET BY MOUTH EVERY DAY 08/26 completed Not Available Not Available Not Available albuterol sulfate HFA 90 mcg/actua tion aerosol inhaler TAKE 2 PUFFS BY MOUTH EVERY 4 TO 6 HOURS NEEDED active Not Available Not Available No t Available Percocet 5 mg-325 mg tablet take 1 tablet by oral route every 6 hours as needed 03/29 completed Prescrib ed Elsewher e: Yes Loca tion: [facility] odify By: neri delcidunter DateTime : 02/28/20 18 01:00:00 PM Not Available Not Available Not Available Terazol 7 0.4 % vaginal cream insert 1 applicat orful by vaginal route every day for 7 days at bedtime 02/11 completed Prescrib ed Elsewher e: No Locat ion: [facility] odify By: shae delciduntlay DateTime : 02/06/20 16 01:43:57 PM Not Available Not Available Not Available amoxicill in 875 mg-potass ium clavulana te 125 mg tablet TK 1 T PO Q 12 HOURS 03/28 completed Not Available Not Available Not Available Colace 50 mg capsule take 1 capsule by oral route every day at bedtime as needed 08/27 completed Prescrib ed Elsewher e: Yes Loca tion: [facility] odify By: montse robledo DateTime : 01/23/20 12 10:15:00 AM Not Available Not Available Not Available Vitamin 27 mg iron-0.8 mg tablet take 1 tablet by oral route every day 06/09 completed Prescrib ed Elsewher e: Yes Loca tion: [facility] odify By: montse robledo DateTime : 01/23/20 12 10:15:00 AM Not Available Not Available Not Available NuvaRing 0.12 mg-0.015 mg/24 hr vaginal insert 1 vaginal ring by vaginal route every month leave in place for 3 weeks, remove for 1 week 11/17 completed Prescrib ed Elsewher e: No Locat ion: [facility] odify By: neri delciduntlay DateTime : 08/31/19 14 04:15:00 PM Not Available Not Available Not Available nitrofura ntoin monohydra te/macroc rystals 100 mg capsule TAKE 1 CAPSULE BY MOUTH EVERY 12 HOURS FOR 5 DAYS 03/04 completed Not Available Not Available Not Available duloxetin e 60 mg capsule,d elayed release TAKE 1 CAPSULE BY MOUTH EVERY DAY active Not Available Not Available No t Available Percocet 03/29 completed Not Available Not Available Not Available Motrin IB 03/28 completed Not Available Not Available Not Available Doc-Q-Lac e 03/28 completed Not Available Not Available Not Available Vitamin D3 03/28 completed Not Available Not Available Not Available varenicli ne tartrate 1 mg tablet TAKE 1 TABLET BY MOUTH WITH GLASS OF WATER 2 TIMES PER DAY AFTER MEALS active Not Available Not Available No t Available varenicli ne tartrate 0.5 mg (11)-1 mg (42) tablets in a dose pack TAKE A DIRECTED ON PACKAGE 03/04 completed Not Available Not Available Not Available Chantix 0.5 mg tablet take 1 tablet by oral route 2 times every day for 3 days with glass of water after meals 03/01 completed Prescrib ed Elsewher e: Yes [facility] odify By: neri delcidunter DateTime : 02/28/20 18 01:00:00 PM Not Available Not Available Not Available Amitiza 03/28 completed Not Available Not Available Not Available Amitiza 8 mcg capsule take 1 capsule by oral route 2 times every day with food and water 03/29 completed Prescrib ed Elsewher e: Yes Loca [facility]ion[facility] odify By: neri delciduntlay DateTime : 02/28/20 18 01:00:00 PM Not Available Not Available Not Available Vitamin D3 125 mcg (5,000 unit) tablet take 2 by Oral route 4 times every week 03/29 completed Prescrib ed Elsewher e: Yes Loca tion: [facility] odify By: neri delcidunter DateTime : 02/28/20 18 01:00:00 PM Not Available Not Available Not Available EC-Naprox en 08/26 completed Not Available Not Available Not Available Paxlovid 300 mg (150 mg x 2)-100 mg tablets in a dose pack PLEASE SEE ATTACHED FOR DETAILED DIRECTIO NS 08/26 completed Not Available Not Available Not Available Ozempic 0.25 mg or 0.5 mg (2 mg/3 mL) subcutane ous pen injector INJECT 0.5 MG SUBCUTAN EOUSLY ONE TIME PER WEEK ON THE SAME DAY OF EACH WEEK active Not Available Not Available No t Available Vitals Date Recorded Body height Body mass index (BMI) Body weight Systolic blood pressure Diastolic blood pressure Provider Name and Address Organization Details Last Updated DateTime 03/29/2021 176.53 cm 36 kg/m2 776115.3 2 g 112 mm[Hg] 79 mm[Hg] Dayana Naylor [facility] 11:04:53 Date Recorded Body weight Provider Name an d Address Organization Details Last Updated DateTime 08/26/2022 886078.77 g Dayana Esparza [facility] 08/26/2022 09:37:07 Date Recorded Systolic blood pressure Diastolic blood pressure Provider Name and Address Organization Details Last Updated DateTime 08/26/2022 122 mm[Hg] 72 mm[Hg] Colleen Cerda, [facility]- [address], [place], [address], [facility] 08/26/2022 09:47:17 Date Recorded Body height Body mass index (BMI) Body weight Systolic blood pressure Diastolic blood pressure Provider Name and Address Organization Details Last Updated DateTime 03/04/2024 176.53 cm 35.5 kg/m2 302879.2 6 g 129 mm[Hg] 76 mm[Hg] Alaina Wolf [facility] 14:18:01 Social History Question Answer Notes LastModified by Organizat ion Details LastModified Time Tobacco Smoking Status Never Smoker Dayana Esparza null, [facility] 08/26/2022 09:37:40 Do You Have An Advance Directive? No Information not available 03/29/2021 What Is Your Level Of Alcohol Consumption? Occasional Information not available 03/29/2021 How Many Years Have You Consumed Alcohol? 30 Information not available 03/29/2021 Are You Blind Or Do You Have Difficulty Seeing? No Information not available 03/29/2021 What Is Your Level Of Caffeine Consumption? Occasional Information not available 03/29/2021 How Much Tobacco Do You Chew? None Information not available 08/26/2022 In The 14 Days Before Symptom Onset, Have You Had Close Contact With A Laboratory-confir med COVID-19 While That Case Was Ill? No Information not available 08/26/2022 In The 14 Days Before Symptom Onset, Have You Had Close Contact With A Person Who Is Under Investigation For COVID-19 While That Person Was Ill? No Information not available 08/26/2022 Have You Been To An Area Known To Be High Risk For COVID-19? No Information not available 03/29/2021 Are You Deaf Or Do You Have Serious Difficulty Hearing? No Information not available 03/29/2021 What Type Of Diet Are You Following? REGULAR Information not available 08/26/2022 What Is The Highest Grade Or Level Of School You Have Completed Or The Highest Degree You Have Received? 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 No Information not available 03/29/2021 Do You Use Protection During Sex? No Information not available 03/29/2021 Do You Use Your Seat Belt Or Car Seat Routinely? Yes Information not available 03/29/2021 Do You Have Smoke And Carbon Monoxide Detectors In Your Home? Yes Information not available 03/29/2021 At What Age Did You Start Smoking Tobacco? 14 Information not available 03/29/2021 How Much Tobacco Do You Smoke? 1 PPD [email or web address] Information not available 03/04/2024 Do You Feel Stressed (tense, Restless, Nervous, Or Anxious, Or Unable To Sleep At Night)? [id number] Information not available 08/26/2022 Do You Use Any Illicit Or Recreational Drugs? No Information not available 08/26/2022 Do You Use Sunscreen Routinely? Yes Information not available 03/29/2021 How Many Years Have You Smoked Tobacco? 35 Information not available 08/26/2022 Have You Used IV Drugs? No Information not available 08/26/2022 Sex: Unknown Functional Status Question Answer Note LastModified by Organizat ion Details LastModified Time Do you have difficulty walking or climbing stairs? No Information not available 08/26/2022 Are you able to walk? YESWOREST Information not available 03/29/2021 Are you able to care for yourself? Yes Information not available 08/26/2022 Do you have difficulty dressing or bathing? No Information not available 08/26/2022 What is your exercise level? Occasional Information not available 03/29/2021 Mental Status None recorded. Family History Relationship Description Onset Age of this Age Resolved Age Notes LastModified by Organization Details LastModified Time Maternal Grandmother Carcinoma in situ of breast [email or web address] Not available 2023 13:51:46 Maternal Grandmother Malignant tumor of breast Not available 2022 09:37:29 Mother Carcinoma in situ of breast [email or web address] Not available 2023 13:51:46 Mother Suspected lung cancer [email or web address] Not available 02/18 13:51:46 Mother Malignant tumor of breast Not available 2022 09:37:29 Father Diabetes mellitus [email or web address] Not available 2019 15:52:33 Maternal Grandfather Suspected lung cancer [email or web address] Not available 02/18 13:51:46 Unspecified Relation Malignant tumor of breast Not available 2022 09:37:29 Sister Malignant tumor of breast Not available 2022 09:37:29 Paternal Grandmother Malignant tumor of breast Not available 2022 09:37:29 Medical History Condition Response Arthritis Y Diabetes Y Depression/ depression Y Gynecological History Statement/Question Response Date of Last Mammogram 03/29/2021 Date of LMP 05/21/2016 On BCP's at Conception? N N Was last menstrual period normal Y STIs/STDs N HPV Vaccine N Current Control Method Menopause Age at First Child 23 If Post Menopausal, Age at Menopause 45 Date of Last Colonoscopy 10/19/2020 Sexually Active? Y Age of first menstrual cycle 13 Date of Last Pap Smear 03/29/2021 Sexual Problems? N LMP Approximate 10/19/2020 N Obstetrics History GPAL:G 10 P 3 0 7 3 Type Value Full Term 3 Induced 6 Spontaneous 1 Living 3 Total 10 Past Encounters Encounter ID Performer Location Encounter Start Date Encounter Closed Date Diagnosis/Indication Diagnosis SNOMED-CT Code Diagnosis ICD10 Code Diagnosis Note [id number] Colleen Cerda [facility] [address],[place] [address] 03/29/2021 10:30:55 03/29/2021 12:12:53 Gynecologic examination 60563846 Z01.419 Take Calcium with Vitamin D 12-1500mg daily. Do monthly self breast exams. It is advised to get annual flu shot in the fall and she could obtain at [facility] or [facility] care clinic. If you haven't received the Tdap vaccine in the last 10 years you should obtain one as well. Have mammogram yearly, bone density every 2-3 years and colonoscop y every 5-10 years depending on findings and history. Engage in daily exercise of low impact aerobic exercise 45-60 minutes 4-5 times weekly. Avoid tobacco and illicit drugs as well as using moderation with alcohol intake less than 1-2 8 oz beverages daily. This lifestyle behavior pattern will lead to less health conditions and longer life span. If BMI greater than 25 weight watchers or dietary consult advised. Questions have been answered. Patient appears to understand instructio ns, but if you have any further questions call or respond to this email Pap/hpv updatedMam mo done-derek ic screening discussed. Colon UTD 2020Dexa-w ill consider within next 2-3yrs. [id number] Colleen Cerda [facility] [address],[facility] [address] 08/26/2022 09:23:40 08/26/2022 10:11:39 Gynecologic examination 21691518 Z01.419 Z11.51 Take Calcium with Vitamin D 12-1500mg daily. Do monthly self breast exams. It is advised to get annual flu shot in the fall and she could obtain at [facility] or [facility] care clinic. If you haven't received the Tdap vaccine in the last 10 years you should obtain one as well. Have mammogram yearly, bone density every 2-3 years and colonoscop y every 5-10 years depending on findings and history. Engage in daily exercise of low impact aerobic exercise 45-60 minutes 4-5 times weekly. Avoid tobacco and illicit drugs as well as using moderation with alcohol intake less than 1-2 8 oz beverages daily. This lifestyle behavior pattern will lead to less health conditions and longer life span. If BMI greater than 25 weight watchers or dietary consult advised. Questions have been answered. Patient appears to understand instructio ns, but if you have any further questions call or respond to this email Pap/hpv sent STD Screen declined Genetic Screen discussed Colon Screen UTD PCP Dexa Screen PCP Routine Labs PCPMammo ordered PCP [id number] YECENIA ROE MD [facility] [address] [address] 03/04/2024 13:50:43 03/08/2024 09:57:35 Screening mammography 44257477 Z12.31 - small pea sized lump in left breast, new per patient- confirmed presence of small mass, mobile, nontender- will send order for mammogram Gynecologi c examination 14424986 Z01.419 [facility] woman care- Cervical cancer screening: Pap smear obtained today, will follow up on the results with the patient as they become available- Breast cancer screening: mammogram ordered- HPV immunizati on: does not qualify- STD testing: declined- hereditary cancer screening: does not qualify for testing Health Concerns Section Related Observation LastModified by Organization Detai ls LastModified Time None Recorded Concern Status LastModified by Organization Details LastModified Time None Recorded Advance Directives Directive N: Payers Encounter Date Sequence Insurance Name Policy Number Policy Garcia Covered Member ID Garcia Member ID Guarantor Name 03/29/2021 1 [place] [id number] Deana Hannah [id number] Deana Hannah 08/26/2022 1 [employer] (EPO) [id number] Deana Hannah [id number] Deana Hannah 03/04/2024 1 [employer] (EPO) [id number] Deana Hannah [id number] Deana Hannah Notes Date Note Type Note Provider Name and Address Organization Details Recorded Time 03/29/2021 text/html Annual [employer] Post-MenopausalRe ported bypatient.Menopau dante Symptoms:no menopausal symptoms; normal vaginal lubrication Vaginal Bleeding:history of menopause having occurred; no history of post menopausal bleeding Urinary Symptoms:no hematuria; no incontinence; no nocturia; no urinary frequency Vulva:no genital lesion; no vulvar atrophy Vagina:normal vaginal discharge; no vaginal atrophy Breast:no breast lump; no nipple discharge; no breast pain Sexual Complaints:no sexual complaints Psychological Symptoms:no depression; no anxiety Preventive Measures:encourag e regular mammograms starting age 40; encourage self breast examination; encourage regular exercise; encourage no tobacco use; mammogram performed within the past year; history of recent colonoscopy Colleen Cerda [facility] [address], [place], [address], [facility] 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 Post-MenopausalRe ported byZakia dante Symptoms:no menopausal symptoms; normal vaginal lubrication Vaginal Bleeding:history of menopause having occurred; no history of post menopausal bleeding Urinary Symptoms:no hematuria; no incontinence; no nocturia; no urinary frequency Vulva:no genital lesion; no vulvar atrophy Vagina:normal vaginal discharge; no vaginal atrophy Breast:no breast lump; no nipple discharge; no breast pain Sexual Complaints:no sexual complaints Psychological Symptoms:no depression; no anxiety Preventive Measures:encourag e regular mammograms starting age 40; encourage self breast examination; encourage regular exercise; encourage no tobacco use; needs to schedule mammogram; history of recent colonoscopy Colleen Cerda [facility] [address], [place], [address], [facility] 08/26/2022 09:58:20 03/04/2024 text/html Presents today for her annual well-woman exam. Denies abnormal vaginal discharge. She is sexually active and denies dyspareunia. She noticed a small lump in her medial left breast. Not painful, not enlarging, first noticed 2 weeks ago. Menopausal, no PMB. YECENIA ROE MD [address], [place], [address], [facility] 03/07/2024 23:34:22 OBGyn Episode No OBEpisode recorded.
--- OUTSIDE RECORDS SUMMARY | 2024-10-11 18:21 | XMS_ITS | Clinical Summary ---
Author Organization [facility] Address [address] [place] [address] Care Team Providers Care Poiser Balance Name Role Phone Marcelino Lieberman MD Primary Care Provider [phone] Marcelino Lieberman MD Unavailable [phone] Source Comments [facility],non-owned Affiliates and Associated Physician Practices is amultiple site organization consisting of ambulatory clinics and hospital sitesin [place], [place], [place] and [place]. This disclosure is being madepursuant to the Care Everywhere program and may not contain all information available regarding this patient. Last updated 18.[facility] Regalister Allergies No known active allergies Medications * Be aware that medications may not be up to date on this document. Alwaysverify current medications with the patient. Medication Sig Dispensed Refills Start Date End Date Status vitamin-ferrous fumarate-folic acid (NATALCARE PLUS) 27-1 MG tablet Take 1 Tab by mouth once daily. Active docusate sodium (COLACE) 100 MG capsule Take 100 mg by mouth 2 times daily. Active ibuprofen (MOTRIN) 600 MG tablet Take 1 Tab by mouth every 6 hours as needed for Pain. 60 Tab 1 02/15/2012 Active docusate sodium (COLACE) 100 MG capsule Take 1 Cap by mouth 2 times daily. 60 Cap 1 02/15/2012 Active oxycodone-acetaminophe n (PERCOCET) 5-325 MG tablet Take 1-2 Tabs by mouth every 4 hours as needed. 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 Overview (01/25/2012): By serology only, no history of outbreak Trichomoniasis 01/25/2012 Overview (01/25/2012): At first visit, treated Advanced maternal age in 01/25/2012 Overview (01/25/2012): Had level 2 US and quad screen (neither documented), declined amnio Immunizations Name Administration Dates Next Due PNEUMOCOCCAL PPSV23 02/15/2012 TDAP (7yrs+) 02/12/2012 Family History Medical History Relation Name Comments Breast Cancer after age 50 or unknown Maternal Grandfa ther Breast Cancer at or under age 50 Mother Breast Cancer at or under age 50 Paternal Grandmother Relation Name Status Comments Maternal Grandfather Mother Paternal Grandmother Social History Tobacco Use Types Packs/Day Years Used Date Smoking Tobacco: Every Day Tobacco Cessation:Ready to Q uit: Yes; Counseling Given: Yes Alcohol Use Standard Drinks/Week Comments No 0 (1 standard drink = 0.6 oz pur e alcohol) Sex and Gender Information Value Date Recorded Sex Assigned at Not on file Gender Identity Not on file Sexual Orientation Not on file Last Filed Vital Signs Vital Sign Reading Time Taken Comments Blood Pressure 108/59 02/15/2012 7:55 AM CDT Pulse 64 02/15/2012 7:55 AM CDT Temperature 36.8 C (98.2 F) 02/15/2012 7:55 AM CDT Respiratory Rate 20 02/15/2012 7:55 AM CDT Oxygen Saturation 100% 02/15/2012 7:55 AM CDT Inhaled Oxygen Concentration - - Weight 102.1 kg (225 lb) 01/27/2012 1:00 PM CDT Height 180.3 cm (5' 11 ) 01/27/2012 1:00 PM CDT Body Mass Index 31.38 01/27/2012 1:00 PM CDT Plan of Treatment Health Maintenance Due Date Last Done Comments COLOGUARD (AGES 45-75) - COL ON CA SCREENING 1969 COLON MONITORING 1969 COLONOSCOPY - COLON CA SCREENING 1969 CT COLONOGRAPHY - COLON CA SCREENING 1969 Colorectal Cancer Screening 1969 FIT - COLON CA SCREENING 1969 FLEX SIG - COLON CA SCREENING 1969 LIPID TESTING 1969 MAMMOGRAM 1969 PAP SMEAR 1969 HIV SCREENING 1984 HEPATITIS C SCREENING 12/27/1987 HEPATITIS B VACCINE (1 of 3 - 19+ 3-dose series) 1988 PNEUMOCOCCAL VACCINE (2 of 2 - PCV) 02/14/2013 02/15/2012 PNEUMOCOCCAL VACCINE 50+ (2 of 2 - PCV) 01/01/2020 02/15/2012 ZOSTER VACCINE (1 of 2) 01/01/2020 DTAP/TDAP/TD VACCINES (2 - T d or Tdap) 02/11/2022 02/12/2012 COVID-19 VACCINE (1 - 2023-2 5 season) 2024 INFLUENZA VACCINE (#1) 2024 DEPRESSION SCREENING 07/21/2024 HIB VACCINE Aged Out No longer eligi ble based on patient's age to complete this topic HPV VACCINE Aged Out No longer eligi ble based on patient's age to complete this topic MENINGOCOCCAL (Group B) VACC INE SHARED DECISION-MAKING Aged Out No longer eligibl e based on patient's age to complete this topic MENINGOCOCCAL GROUPS A/C/Y/W VACCINE Aged Out No longer eligible b ased on patient's age to complete this topic Advance Directives * FULL RESUSCITATION (Latest Code Status on File) Date Activated Date Inactivated Comments 02/07/2012 5:29 PM 02/15/2012 3:52 PM * FULL RESUSCITATION Date Activated Date Inactivated Comments 02/07/2012 5:06 PM 02/07/2012 5:29 PM * FULL RESUSCITATION Date Activated Date Inactivated Comments 01/25/2012 11:40 PM 02/07/2012 5:06 PM Care Teams Poiser Balance Relationship Specialty Start Date End Date Marcelino Lieberman MD [address] [place] [address] PCP - General 06/27/20 Marcelino Lieberman MD [address] [place] [id number] 06/27/20
== END 2024-10-11 16:01 | disposition home or self-care (01) ==
LOC: CHSIMG 16:01
PROVIDERS: PCP Family Medicine; Visit Provider Family Medicine
DX: M79.672 Pain in left foot (principal); M79.671 Pain in right foot
CPT/HCPCS: 73630

== ENCOUNTER 2024-10-14 13:02 | Outpatient (CLI) | payer OTHER, SELFPAY ==
--- NOTE | ~2024-10-14 | DEXA_ITS ---
? Bone Density Report? Name:? Deana Hannah Patient ID:??? [id number] Age:? 53 Sex:? Female Ethnicity:? White Date of : 1970 Indication: postmenopausal; screening for osteoporosis; height loss; Referring Provider: Kaleb Fernandez Study: Bone densitometry was performed. Exam Date: October 14, 2024 Accession number: [id number] Bone Density: Region? BMD??? T-score? Z-score?? Classification Femoral Neck (Left)? 0.801?? -0.4? 0.6? Normal Total Hip (Left)? 0.973??? 0.3? 0.9? Normal Femoral Neck (Right)? 0.776?? -0.7? 0.4? Normal Total Hip (Right)? 1.003??? 0.5? 1.2? Normal Femoral Neck Mean? 0.788?? -0.5? 0.5? Normal Total Hip Mean? 0.988??? 0.4? 1.0? Normal World Health Organization criteria for BMD impression classify patients as: Normal (T-score at or above -1.0), Osteopenia (T-score between -1.0 and -2.5), or Osteoporosis (T-score at or below -2.5). 10-year Fracture Risk: FRAX not reported because: ? All T-scores for Spine Total, Hip Total, Femoral Neck at or above -1.0 Clinical Information Provided by Patient: Smokes Patient maximum height was 71 Menopause Age: 45 No regular weight bearing exercise Drinks caffeinated beverages Onset of menses at age 13 Number of children 2 Impression: The patient has normal bone mass. The patient has risk factors, including: smoking. Discussion: BONE DENSITY IS ABOVE THE MINIMUM DESIRABLE LEVEL AT ALL SKELETAL SITES TESTED. This patient?s bone mineral density is above the minimum desirable level (T- score -1.0 or better) at all sites measured. The patient should follow a healthful lifestyle (good nutrition with adequate calcium and vitamin D, and appropriate weight-bearing exercise). Follow-Up: Consider repeating this study in 5 years or sooner if there is some new clinical indication. Reported by: ROGELIO on :13:00 AM. HOWARD
--- OUTSIDE RECORDS SUMMARY | 2024-10-14 13:55 | XMS_ITS | Data Portability ---
Author Organization [facility] [place] Address [address] [place] [address] Care Team Providers Care Acid Leveler Name Role Phone GREGORIA CONWAY Primary Care Provider Assessment Encounter Date Assessment Date Assessment LastModified [...] Imaging MAMMO, screening, digital, bilateral 2023 024 [facility], [address], [place], [address], 05:00:57 Medication Orders None recorded. Patient TargetsNo [...] singh , Darwin Richardson cted: 03/29 1156 COMMERCIAL COUNSEL Order ing Locat ion: [place] Patho logy [...] as clini bassem mariano nted. Not Available [facility] (Lab) [address], [place], [address], 04/02/2021 13:57:26 08/26/19 23 08/26/2022 IMAGE GUIDE D PAP AND HPV REGAR DLESS image guided Pap, HPV regardless of Pap result SEE RESULT S BELOW CASE REPOR T: Cytol ogy Gynec ologi sussy Repor t Case: [id number] Autho yousif corazon Provi brannon: Jose Gomes Colle cted: 08/26 1506 COMMERCIAL COUNSEL Order ing Locat ion: [place] Patho logy [...] as clini bassem mariano nted. Not Available [facility] (Lab) [address], [place], [address], 08/28/2022 12:18:00 03/04/20 24 03/04/2024 IMAGE GUIDE [...] as clini bassem mariano nted. Not Available [facility] (Lab) [address], [place], [address], 03/11/2024 13:03:28 04/05/20 21 MAMMO , scree bonnie, bilat eral No observ ation record ed. [facility] [address], [place], [address], 04/09/2021 16:47:21 Result Notes None recorded. Problems Name Problem SNOMED Code Status Onset Date Resolution Date Notes Provider Name and Address Organization Details Recorded Time Screenin g for malignan t neoplasm of cervix Completed 201203/28/2021 Pap Smear;Pra ctice ID: 0001 Dayana Naylor [facility] 17:12:04 Screenin g for malignan t neoplasm of rectum Completed 201203/28/2021 Screening for malignant neoplasms of the rectum;Pr actice ID: 0001 Dayana Naylor [facility] 17:12:05 Postpart um care Completed 201103/28/2021 Routine postpartu m follow-up ;Recorded Elsewhere : No Locati on: [facility] So urce: EHR Chron ic: N Practic e ID: 0001 Bill able Time: 05:33:00 AM Dayana Naylor [facility] 17:11:[address] Concept Completed 201703/28/2021 Encntr for cart pusher exam (general) (routine) w/o abn findings; Practice ID: 0001 Dayana Naylor [facility] 17:12:08 Acute vaginiti s [id number] Completed 201503/28/2021 Acute vaginitis ;Practice ID: 0001 Dayana Naylor [facility] 17:11:31 Insertio n of intraute rine contrace ptive device Completed 201103/28/2021 INSERTION OF IUD;Recor ded Elsewhere : No Locati on: [facility] So urce: EHR Chron ic: N Practic e ID: 0001 Bill able Time: 08:00:00 AM Dayana Naylor [facility] 17:11:46 Speciali zed medical examinat ion Completed 201203/28/2021 Gynecolog ical Examinati on;Record ed Elsewhere : No Locati on: [facility] So urce: EHR Chron ic: N Practic e ID: 0001 Bill able Time: 05:00:00 PM Dayana Naylor null, [facility] 1 17:12:[address] Concept Completed 201503/28/2021 Encntr for general adult medical exam w/o abnormal findings; Recorded Elsewhere : No Locati on: [facility] So urce: EHR Chron ic: N Practic e ID: 0001 Bill able Time: 02:00:00 PM Dayana Naylor [facility] 1 17:12:07 Deliveri es by [id number] Completed 201103/28/2021 delivery, without mention of indicatio n, unspecifi ed as to episode of care;Huey rded Elsewhere : No Locati on: [facility] So urce: EHR Chron ic: N Practic e ID: 0001 Bill able Time: 10:00:00 AM Dayana Naylor [facility] 17:11:38 Breast cancer genetic marker of medardocepti bildante detected [id number] Completed 201303/28/2021 Genetic susceptib ility to malignant neoplasm of breast;Re corded Elsewhere : No Locati on: [facility] So urce: EHR Chron ic: N Practic e ID: 0001 Bill able Time: 10:00:00 AM Dayana sams [facility] 17:11:36 Dysfunct ional uterine bleeding Completed 201203/28/2021 Other disorders of menstruat ion and other abnormal bleeding from female genital tract;Rec orded Elsewhere : No Locati on: [facility] So urce: EHR Chron ic: N Practic e ID: 0001 Bill able Time: 10:45:00 AM Dayana Naylor [facility] 17:11:39 Irregula r periods [id number] Completed 201303/28/2021 Irregular menstrual cycle;Rec orded Elsewhere : No Locati on: [facility] So urce: EHR Chron ic: N Practic e ID: 0001 Bill able Time: 04:15:00 PM Dayana Naylor [facility] 17:11:48 Family planning surveill ance Completed 201103/28/2021 Contracep tive surveilla nce, unspecifi ed;Record ed Elsewhere : No Locati on: [facility] So urce: EHR Chron ic: N Practic e ID: 0001 Bill able Time: 02:00:00 PM Dayana Naylor [facility] 17:11:42 Body mass index 30+ - obesity [id number] Completed 201703/28/2021 Body mass index (BMI) 36.0-36.9 , adult;Rec orded Elsewhere : No Locati on: [facility] So urce: EHR Chron ic: N Practic e ID: 0001 Bill able Time: 01:00:00 PM Dayana Naylor [facility] 17:11:34 Follow-u p risk drug assessme nt Completed 201103/28/2021 Follow-up examinati on following completed treatment with high-risk medicatio n, not elsewhere classifie d;Recorde d Elsewhere : No Locati on: [facility] So urce: EHR Chron ic: N Practic e ID: 0001 Bill able Time: 11:00:00 AM Dayana Naylor [facility] 17:11:45 Female genital organ symptoms [id number] Completed 201303/28/2021 Unspecifi ed symptom associate d with female genital organs;Re corded Elsewhere : No Locati on: [facility] So urce: EHR Chron ic: N Practic e ID: 0001 Bill able Time: 09:15:00 AM Dayana Naylor [facility] 17:11:43 Procedur e on genitour inary system Completed 201303/28/2021 Steriliza tion;Huey rded Elsewhere : No Locati on: [facility] So urce: EHR Chron ic: N Practic e ID: 0001 Bill able Time: 10:00:00 AM Dayana sams [facility] 17:12:00 Postoper ative follow-u p visit Completed 201303/28/2021 Follow-up examinati on, following unspecifi ed surgery;R ecorded Elsewhere : No Locati on: [facility] So urce: EHR Chron ic: N Practic e ID: 0001 Bill able Time: 10:00:00 AM Dayana sams [facility] 17:11:50 Abdomina l pain [id number] Completed 201103/28/2021 Abdominal pain, other specified site;Huey rded Elsewhere : No Locati on: [facility] So urce: EHR Chron ic: N Practic e ID: 0001 Bill able Time: 05:33:00 AM Dayana sams [facility] 17:11:29 Dysmenor jessica [id number] Completed 201303/28/2021 Dysmenorr hea;Recor ded Elsewhere : No Locati on: [facility] So urce: EHR Chron ic: N Practic e ID: 0001 Bill able Time: 04:15:00 PM Dayana sams [facility] 17:11:40 Pregnanc y test negative [id number] Completed 201103/28/2021 examinati on or test, negative result;Re corded Elsewhere : No Locati on: [facility] So urce: EHR Chron ic: N Practic e ID: 0001 Bill able Time: 08:00:00 AM Dayana sams [facility] 17:11:54 Primigra mari [id number] Completed 201103/28/2021 Supervisi on of normal first ;Practice ID: 0001 Dayana sams [facility] 17:11:58 Routine antenata l care Completed 201103/28/2021 Supervisi on of other normal ;Practice ID: 0001 Dayana Naylor [facility] 17:12:02 Prematur e rupture of membrane s with antenata l problem [id number] Completed 201103/28/2021 Premature rupture of membranes , antepartu m;Practic e ID: 0001 Dayana Naylor [facility] 17:11:56 Amenorrh ea [id number] Completed 201403/28/2021 Amenorrhe a;Recorde d Elsewhere : No Locati on: [facility] So urce: EHR Chron ic: N Practic e ID: 0001 Bill able Time: 09:00:00 AM [facility] 17:11:32 Problem Notes None recorded. Procedures Surgical History Date Name Laterality Status Provider Name and Address Organization Details Recorded Time 03/29/20 21 Date of Last Pap Smear completed [facility] 08/26/2022 09:39:27 03/29/20 21 Date of Last Mammogram completed [facility] 03/29/2021 11:10:24 10/20/19 21 completed [facility] 03/29/2021 11:05:13 10/20/19 21 Date of Last Colonoscopy completed [facility] 03/29/2021 11:05:13 Caesarean Section completed [facility] 03/29/2021 11:05:24 Orthopedic Surgery completed [facility] 08/26/2022 09:37:43 Other completed [facility] 08/26/2022 09:37:43 Cholecystectomy completed [facility] 08/26/2022 09:37:43 procedure on upper arm completed [facility] 03/08/2020 15:53:[address] [facility] 03/08/2020 15:53:21 Tubal Ligation completed [facility] 03/08/2020 15:53:26 exploration of spinal fusion completed [facility] 03/08/2020 15:53:38 Imaging Results Imaging Date Name Status LastModified by Organiz ation Details LastModified Time 04/05/2021 MAMMO, screening, bilateral completed [facility] [address], [place], [address], 04/09/2021 16:47:21 Procedure Notes None recorded. Medical Equipment None Reported. Allergies No known drug allergies Medications Name Sig Start Date Stop Date Status Note LastModified by Organization Details LastModified Time Prometriu m 200 mg capsule take 1 capsule by oral route every day for 10 days in the evening 12/02 completed Prescrib diana Cooley e: No Locat ion: [facility] odify By: roberto quispe DateTime : [...] Prescrib ed Elsewher e: Yes Loca tion: [facility] odify By: neri delciduntlay DateTime : 02/28/20 18 01:00:00 PM Not Available Not Available Not Available Motrin 600 mg tablet take 1 tablet by oral route 3 times every day with food 08/26 completed Prescrib ed Elsewher e: Yes Loca tion: [facility] odify By: ginna robledo DateTime : [...] Prescrib ed Elsewher e: Yes Loca tion: [facility] odify By: montse robledo DateTime [...] Prescrib ed Elsewher e: Yes [facility] odify By: montse robledo DateTime : 02/20/20 12 03:45:00 PM Not Available Not Available Not Available Metrogel Vaginal 0.75 % (37.5 mg/5 gram) insert 1 applicat orful by vaginal route every day at bedtime 02/27 completed Prescrib ed Elsewher e: No Locat ion: [facility] odify By: neri delcidunter DateTime [...] Prescrib ed Elsewher e: No Locat ion: [facility] odify By: amkraimundo Mckeon ncounter DateTime [...] Prescrib ed Elsewher e: Yes Loca tion: [facility] odify By: neri delcidunter DateTime : 02/28/20 18 01:00:00 PM Not Available Not Available Not Available Terazol 7 0.4 % vaginal cream insert 1 applicat orful by vaginal route every day for 7 days at bedtime 02/11 completed Prescrib ed Elsewher e: No Locat ion: [facility] odify By: shae delciduntlay DateTime : 02/06/20 [...] Elsewher e: Yes Loca tion: [facility] odify By: montse robledo DateTime : 01/23/20 12 10:15:00 AM Not Available Not Available Not Available Vitamin 27 mg iron-0.8 mg tablet take 1 tablet by oral route every day 06/09 completed Prescrib ed Elsewher e: Yes Loca tion: [facility] odify By: montse robledo DateTime : 01/23/20 12 10:15:00 AM Not Available Not Available Not Available NuvaRing 0.12 mg-0.015 mg/24 hr vaginal insert 1 vaginal ring by vaginal route every month leave in place for 3 weeks, remove for 1 week 11/17 completed Prescrib ed Elsewher e: No Locat ion: [facility] odify By: neri delciduntlay DateTime : 08/31/19 [...] Prescrib ed Elsewher e: Yes [facility] odify By: neri delcidunter DateTime : 02/28/20 18 01:00:00 PM Not Available Not Available Not Available Amitiza 03/28 completed Not Available Not Available Not Available Amitiza 8 mcg capsule take 1 capsule by oral route 2 times every day with food and water 03/29 completed Prescrib ed Elsewher e: Yes [facility]oca [facility] odify By: neri delciduntlay DateTime : 02/28/20 18 01:00:00 PM Not Available Not Available Not Available Vitamin D3 125 mcg (5,000 unit) tablet take 2 by Oral route 4 times every week 03/29 completed Prescrib ed Elsewher e: Yes Loca tion: [facility] odify By: neri delcidunter DateTime [...] Updated DateTime 03/29/2021 176.53 cm 36 kg/m2 402863.3 2 g 112 mm[Hg] 79 mm[Hg] Dayana Naylor [facility] 11:04:53 Date Recorded Body weight Provider Name an d Address Organization Details Last Updated DateTime 08/26/2022 338449.77 g Dayana Esparza [facility] 08/26/2022 09:37:07 Date Recorded Systolic blood pressure Diastolic blood pressure Provider Name and Address Organization Details Last Updated DateTime 08/26/2022 122 mm[Hg] 72 mm[Hg] Colleen Cerda, [facility]- [address], [place], [address], [facility] 08/26/2022 09:47:17 Date Recorded Body height Body mass index (BMI) Body weight Systolic blood pressure Diastolic blood pressure Provider Name and Address Organization Details Last Updated DateTime 03/04/2024 176.53 cm 35.5 kg/m2 182544.2 6 g 129 mm[Hg] 76 mm[Hg] Alaina Wolf [facility] 14:18:01 Social History Question Answer Notes LastModified by Organizat ion Details LastModified Time Tobacco Smoking Status Never Smoker Dayana Esparza null, [facility] 08/26/2022 09:37:40 Do You Have An [...] Or The Highest Degree You Have Received? 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 [id number] Information not available 08/26/2022 Do You Use [...] Maternal Grandmother Carcinoma in situ of breast [email or web address] Not available 2023 13:51:46 Maternal Grandmother Malignant tumor of breast Not available 2022 09:37:29 Mother Carcinoma in situ of breast [email or web address] Not available 2023 13:51:46 Mother Suspected lung cancer [email or web address] Not available 02/18 13:51:46 Mother Malignant tumor of breast Not available 2022 09:37:29 Father Diabetes mellitus [email or web address] Not available 2019 15:52:33 Maternal Grandfather Suspected lung cancer [email or web address] Not available 02/18 13:51:46 Unspecified Relation Malignant [...] SNOMED-CT Code Diagnosis ICD10 Code Diagnosis Note [id number] Colleen Cerda [facility] [address],[place] [address] 03/29/2021 10:30:55 03/29/2021 12:12:53 Gynecologic examination 49551368 Z01.419 Take Calcium with Vitamin D 12-1500mg daily. Do monthly self breast exams. It is advised to get annual flu shot in the fall and she could obtain at [facility] or [facility] care clinic. If you haven't received the [...] UTD 2020Dexa-w ill consider within next 2-3yrs. [id number] Colleen Cerda [facility] [address],[facility] [place] [address] 08/26/2022 09:23:40 08/26/2022 10:11:39 Gynecologic examination 30403669 Z01.419 Z11.51 Take Calcium with Vitamin D 12-1500mg daily. Do monthly self breast exams. It is advised to get annual flu shot in the fall and she could obtain at [facility] or [facility] care clinic. If you haven't received the [...] Screen PCP Routine Labs PCPMammo ordered PCP [id number] YECENIA ROE MD [place] [address] [address] 03/04/2024 13:50:43 03/08/2024 09:57:35 Screening mammography 91947164 Z12.31 - small pea sized lump in left breast, new per patient- confirmed presence of small mass, mobile, nontender- will send order for mammogram Gynecologi c examination 22502432 Z01.419 [facility] woman care- Cervical cancer screening: Pap [...] Name 03/29/2021 1 [place] [id number] Deana Hannah [id number] Deana Hannah 08/26/2022 1 [employer] (EPO) [id number] Deana Hannah [id number] Deana Hannah 03/04/2024 1 [employer] (EPO) [id number] Deana Hannah [id number] 3 Deana Hannah Notes Date Note Type Note Provider Name and Address Organization Details Recorded Time 03/29/2021 text/html Annual [employer] Post-MenopausalRe ported bypatient.Menopau dante Symptoms:no menopausal symptoms; [...] year; history of recent colonoscopy Colleen Cerda [facility] [address], [place], [address], [facility] 03/29/2021 11:33:05 08/26/2022 text/html Annual [employer] Post-MenopausalRe ported byZakia dante Symptoms:no menopausal symptoms; [...] mammogram; history of recent colonoscopy [facility] Cerda [facility] [address], [place], [address], [facility] 08/26/2022 09:58:20 03/04/2024 text/html Presents today for her annual well-woman exam. Denies abnormal vaginal discharge. She is sexually active and denies dyspareunia. She noticed a small lump in her medial left breast. Not painful, not enlarging, first noticed 2 weeks ago. Menopausal, no PMB. YECENIA ROE MD [address], [place], [address], [facility] 03/07/2024 23:34:22 OBGyn Episode No OBEpisode recorded.
--- OUTSIDE RECORDS SUMMARY | 2024-10-14 13:55 | XMS_ITS | Clinical Summary ---
Author Organization [facility] Address [address] [place] [address] Care Team Providers Care Second Operator Name Role Phone Kaleb Fernandez MD Primary Care Provider [phone] Allergies No known active allergies Medications metFORMIN [...] (07/03/2022): Added automatically from request for surgery [id number] Family History Medical History Relation Comments Cancer [...] Colonoscopy (10 Years) 1969 Annual Physical 1972 Hepatitis C 01/01/1988 Hepatitis B Vaccines (1 of 3 - 19+ 3-dose series) 1988 Mammogram Screening 2009 Pneumococcal Vaccine: Pediatrics (0 to 5 Years) and At-Risk Patients (6 to 64 Years) (2 of 2 - PCV) 02/14/2013 02/15/2012 Cervical Cancer Screening Pap with HPV Testing (Age 30 to 64) Every 5 Years 01/24/2017 01/25/2012 COVID-19 Vaccine (2 - 2024-25 season) 2024 12/02/2020 Influenza Adult (#1) 2024 04/12/2020, 06/17/20 18 PHQ-2 (Physician [place]) 07/21/2024 Cervical Cancer Screening Pap Smear (Age [...] complete this topic Insurance [employer] Care Teams Second Operator Relationship Specialty Start Date End Date Kaleb Fernandez MD [address] [place] [address] PCP - General FAMILY PRACTICE 06/11/22
--- OUTSIDE RECORDS SUMMARY | 2024-10-14 13:55 | XMS_ITS | Clinical Summary ---
Author Organization [facility] Address [address] [place] [address] Care Team Providers Care Protection Agent Name Role Phone Marcelino Lieberman MD Primary Care Provider [phone] Marcelino Lieberman MD Unavailable [phone] Source Comments [facility],non-owned Affiliates and Associated Physician Practices is amultiple site organization consisting of ambulatory clinics and hospital sitesin [place], [place], [place] and [place]. This disclosure is being madepursuant to the Care Everywhere program and may not contain all information available regarding this patient. Last updated 18.[facility] [employer] Allergies No known active allergies Medications * [...] 11:40 PM 02/07/2012 5:06 PM Care Teams Protection Agent Relationship Specialty Start Date End Date Marcelino Lieberman MD [address] [place] [address] PCP - General 06/27/20 Marcelino Lieberman MD [address] [place] [address] 06/27/20
== END 2024-10-14 13:03 | disposition home or self-care (01) ==
LOC: CHSIMG 13:03
PROVIDERS: PCP Family Medicine; Visit Provider Family Medicine
DX: Z78.0 Asymptomatic menopausal state (principal)
CPT/HCPCS: 77080

== ENCOUNTER 2024-10-20 15:13 | Outpatient (RCR) | payer OTHER, SELFPAY ==
--- NOTE | 2024-10-20 16:09 | OPREHPOC ---
Outpatient Therapy Plan of Care This is a Multidisciplinary Plan of Care that may contain components documented by all disciplines (PT, OT, and ST.) PT Problem 1 PT Problem #1 Knowledge Deficit PT Goal 1 Goal / Goal Update 1. independent and compliant with HEP Target Visit 2 PT Problem 2 PT Problem #2 Pain PT Goal 1 Goal / Goal Update 1. patient to report no more than 2/10 pain at worst in bilateral feet. Target Visit 4 PT Problem 3 PT Problem #3 Impaired Functional Mobility PT Goal 1 Goal / Goal Update 1. no tenderness with palpation of the bilateral plantar heel (MCT) 2. patient to report no pain with ambulation of 15 minutes or more 3. LEFS to display 20% or less functional deficits Target Visit 4 PT Problem 4 PT Problem #4 Impaired Range of Motion PT Goal 1 Goal / Goal Update 1. 10 degrees or better active L DF Target Visit 4
--- NOTE | 2024-10-20 16:10 | PTOPEVAL1 ---
Assessment and note entered by JT File, PT Evaluation Information Assessment Status Evaluation ICD-10 Condition Codes (PT) Pain in right ankle and joints of right foot M25. 571,Pain in left ankle and joints of left foot M25 .572 Other ICD-10 Condition Codes ( M79.673 PT) Onset 09/18/24 Subjective Information patient reports she has been having pain in her bilateral feet since the beginning of last month. she reports she just started feeling like she has a rock in both heels. she reports she has increased symptoms with being up on her feet. she reports even after sitting it will be worse when she first gets up. she reports she did have xrays of the bilateral feet with results of heel spurs. she reports her symptoms are on the plantar surface and far posterior heel. Reported Pain Level Pain Score 3: Self Report Assessment PT Clinical Summary mrs. mcallister presents to skilled PT services for evaluation and treatment of bilateral foot pain. she presents today with signs and symptoms of bilateral plantar fasciitis. she presents deficits in L ankle DF, bilateral plantar fascia tightness , palpable tenderness, and pain with ambulation. continued skilled PT is indicated to improve her objective/functional deficits and progress towards a return to her prior level functional activity performance/quality of life. Plan of Care Interventions Gait Training,Hot Pack/Cold Pack,Manual Therapy, Neuro Re-education,Patient/Caregiver Education, Therapeutic Activities,Therapeutic Exercise PT Services Indicated Yes Treatment Frequency and 2x weekly for 4 visits Duration These treatments will address the objective and functional deficits as defined above. The patient will be advanced safely and appropriately in order for the patient to progress towards his/her prior level of function. Additional exercises will be introduced and as well as a comprehensive home exercise program upon discharge, if needed, ?to ensure carryover of functional gains achieved in the clinic. This treatment plan has been reviewed and agreement upon by the patient.
--- NOTE | 2024-10-22 15:41 | PCPTNOTE ---
Cancelled session. Pt reports she overslept and will be here next week.
== END 2024-10-26 20:00 | disposition home or self-care (01) ==
LOC: CHSPT 15:13
PROVIDERS: PCP Family Medicine; Visit Provider Family Medicine
DX: M25.571 Pain in right ankle and joints of right foot (principal); M25.572 Pain in left ankle and joints of left foot
CPT/HCPCS: 97110; 97140; 97161

== ENCOUNTER 2024-11-08 11:52 | Emergency (ER) | payer OTHER, SELFPAY ==
--- NOTE | ~2024-11-08 | XR_ITS ---
EXAMINATION: XR lumbar spine 2-3V DATE: 11/08/2024 12:21 INDICATION: 5 days of lumbar back pain TECHNIQUE: Anteroposterior and lateral views of the lumbar spine, and cone-down lateral view of the l umbosacral junction were obtained. COMPARISON: None. FINDINGS: 10 degrees lumbar dextroscoliosis. Sagittal alignment is normal. Postoperative change of prior L4 grigsby inectomy with L4-L5 posterior spinal fusion with bilateral vertical jannet and pedicle screw fixation. N o lucency surrounding the screws to suggest loosening. Vertebral body heights are normal. Unchanged m oderate to severe disc height loss at L4-L5 and L5-S1, mild to moderate left-sided predominant disc h eight loss at L2-L3 and L3-L4 and mild disc height loss at T10-11 through L1-L2. Sacral arches are in tact. Mild bilateral sacroiliac osteoarthritis. Cholecystectomy clips in right upper quadrant. IMPRESSION: 1. Stable appearance of 10 degrees lumbar dextroscoliosis with moderate to severe spondylosis and pos toperative change of L4 laminectomy and instrumented L4-5 posterior spinal fusion. Reviewed, dictated and finalized at location A. IMPRESSION: 1. Stable appearance of 10 degrees lumbar dextroscoliosis with moderate to alexandre re spondylosis and postoperative change of L4 laminectomy and instrumented L4-5 posterior spinal fusion.
[2024-11-08 11:52] VITALS: BP 165/83; PULSE 72; RESP 17; TEMP 36.7; O2SAT 97
[2024-11-08 12:00] VITALS: BP 167/74; PULSE 83; RESP 17; O2SAT 97
--- NOTE | 2024-11-08 12:05 | PC.NURSE ---
patient down in radiology
[2024-11-08] MEDS: MORPHINE SULFATE (*CRX) 4 MG/ML INJ IM (12:24)
[2024-11-08] MEDS: CYCLOBENZAPRINE HCL 10 MG TABLET PO (12:25)
[2024-11-08 12:30] VITALS: BP 130/73; PULSE 72; RESP 17; O2SAT 98
--- NOTE | 2024-11-08 12:40 | ED.BACK ---
HPI - Back Pain/Injury General Chief Complaint: Back Pain/Injury Stated Complaint: back pain Time Seen by Provider: 11/08/24 12:01 Source: patient Mode of arrival: ambulatory Limitations: no limitations History of Present Illness HPI Narrative: Patient is a 53-year-old female with significant past medical history that presents today for lumbar pain. Patient has extensive back history she had a spinal fusion about 6 years ago she has spondylosis and she has some degenerative changes and some stenosis. But this time the pain is a 10/10 and she says she gets these flare up sometimes and she says this is probably worse flare-up she has had since she had her surgery. She did take a [employer] about an hour and half ago and it did not do anything. MD elicited complaint: back pain Pertinent past history: prior back pain Onset (ago): hour(s) Timing: constant Severity: severe Pain scale (0-10): 10 Similar Symptoms Previously: Yes Quality: stabbing Location: lumbar spine Exacerbating factors: movement and walking Relieving factors: immobilization and medication Context: turning/twisting Associated symptoms: difficulty walking Treatments prior to arrival: other Related Data Home Medications ?Medication ?Instructions ?Recorded ?Confirmed ?Last Taken ?Type duloxetine 30 mg capsule,delayed 60 mg PO DAILY 06/19/20 07/23/23 06/25/20 08:00 History release tramadol 50 mg tablet See Rx Instructions .Route 06/19/20 07/23/23 06/25/20 08:00 History .COMPLEX PRN Pain gabapentin 600 mg tablet 600 mg PO TID 04/18/21 07/23/23 Unknown History hydrocodone 7.5 mg-acetaminophen 1 tablet PO TID 04/18/21 07/23/23 Unknown History 325 mg tablet cyclobenzaprine 10 mg tablet 10 mg PO PRN 07/23/23 07/23/23 Unknown History Allergies Allergy/AdvReac Type Severity Reaction Status Date / Time No Known Allergies Allergy Verified 12/02/22 08:33 Review of Systems Review of Systems: All systems reviewed & are unremarkable except as noted in HPI and below Constitutional: Constitutional: Reports as per HPI Eyes: Eyes: Reports no additional eye complaints ENT: Reports system reviewed and no additional complaints, except as documented Cardiovascular: Cardiovascular: Reports no additional cardiovascular complaints Respiratory: Respiratory: Reports no additional respiratory complaints Gastrointestinal: Gastrointestinal: Reports no additional gastrointestinal complaints Genitourinary: Genitourinary: Reports no additional female genitourinary complaints Musculoskeletal: Musculoskeletal: Reports as per HPI and Reports back pain Integumentary/Breasts: Skin/Breast: Reports system reviewed and no additional complaints, except as docu Neurologic: Reports system reviewed and no additional complaints, except as documented Psychiatric: Psychiatric: Reports no additional psychiatric complaints Endocrine: Endocrine: Reports no additional endocrine complaints Hematologic/Lymphatic: Hematologic/Lymphatic: Reports no additional hematologic/lymphatic complaints Allergic/Immunologic: Allergic/Immunologic: Reports no additional allergic/immunologic complaints COUNTS INCLUDE 234 BEDS AT THE [facility] Past Medical History Medical History Pancreatitis Abdominal pain Pre-diabetes Obesity Depression Back pain Surgical History Surgical History Status post carpal tunnel release Previous back surgery spinal fusion 2018 Status post Status post tonsillectomy Social History Social History Smoking packs per day: 1 Smoking cigarettes per day: 20.0 Years smoked: 20 Smoking pack-years: 20.00 Smoking status: Former smoker Tobacco type: cigarettes Second hand tobacco smoke exposure: No Alcohol intake: never Drinks per week: 0 Alcohol use details: 2 TIMES PER YEAR Substance use: never Substance use type: does not use Lack of Transportation: No Lack of Food: Never True Current Housing: I Have Housing Concerned About Future Housing: No Difficulty Paying Gas/Electric Bills: No Difficulty Paying for Meds: No Currently Unemployed: No Education: High School Diploma/GED Difficulty w/ Childcare or Family Care: No Living arrangements: with family Spiritual care concerns: No Exam Const: General: healthy appearing Nutritional Appearance: well nourished Orientation/consciousness: patient oriented x3 HENMT: Head: normal to inspection Ears: external ears normal Face/Nose/Sinus: Normal external nose present Face and sinus: normal facial exam Eyes: Conjunctivae: conjunctivae normal Pupils: Equal, round and reactive pupils present EOM: EOMs intact bilaterally Neck: Neck: normal visual inspection Chest: Chest palpation & inspection: normal inspection of the chest Resp: Effort & Inspection: normal respiratory effort Auscultation: clear to auscultation bilaterally Cardio: Rate: regular rate Rhythm: regular rhythm GI: GI Palp: Yes Soft to palpation Back/Spine/Pelvis: Back: no CVA tenderness Skin: General skin exam: normal color Rashes: no rashes Wounds: no wounds Neuro: General: patient oriented x3 Cranial nerves: Yes Nystagmus not present Speech: normal speech Extrem: General: normal to inspection Psych: Mental Status: mental status grossly normal Affect: normal affect Attitude: cooperative Course Vital Signs Vital signs: Vital Signs Temperature 98.1 F 11/08/24 11:52 Pulse Rate 72 11/08/24 11:52 Respiratory Rate 17 11/08/24 11:52 Blood Pressure 165/83 H 11/08/24 11:52 Pulse Oximetry 97 11/08/24 11:52 Temperature 98.1 F 11/08/24 11:52 Pulse Rate 72 11/08/24 11:52 Respiratory Rate 17 11/08/24 11:52 Blood Pressure 165/83 H 11/08/24 11:52 Pulse Oximetry 97 11/08/24 11:52 MDM - Back Pain/Injury Differential Diagnosis Differential diagnosis: Likely lumbar radiculopathy and strain of lumbar region Medical Records Attestation: I reviewed the patient's medical records. Lab Data Attestation: I reviewed the patient's lab results. Imaging Data Attestation: I personally reviewed and interpreted this imaging study as follows: Discharge Plan Discharge Clinical Impression: Back pain, Lumbar strain, Spondylosis Patient Disposition: Home Condition: Stable Instructions: Acute Low Back Pain (ED) Patient Language: Ghanaian Prescriptions: No Action gabapentin 600 mg tablet 600 mg PO TID hydrocodone-acetaminophen 7.5-325 mg tablet 1 tablet PO TID pantoprazole 40 mg tablet,delayed release (DR/EC) 40 mg PO QAM 28 Days Qty: 28 0RF cyclobenzaprine 10 mg tablet 10 mg PO PRN tramadol 50 mg Tablet See Rx Instructions .ROUTE .COMPLEX PRN (Reason: Pain) Rx Instructions: 1 TO 2 TABLETS EVERY 8 TO 12 HOURS NEEDED duloxetine 30 mg capsule,delayed release(DR/EC) 60 mg PO DAILY Follow-up/Referrals: Kaleb Fernandez MD [Primary Care Provider] - Time of Disposition: 12:49
[2024-11-08 13:00] VITALS: BP 124/67; PULSE 72; RESP 17; O2SAT 98
--- OUTSIDE RECORDS SUMMARY | 2024-11-08 13:31 | XMS_ITS | Clinical Summary ---
Author Organization [facility] Address [address] [place] [address] Care Team Providers Care Steel Tester Name Role Phone Kaleb Fernandez MD Primary Care Provider [phone] Allergies No known active allergies Medications metFORMIN [...] (07/03/2022): Added automatically from request for surgery [id number] Family History Medical History Relation Comments Cancer [...] series) 1988 Mammogram Screening 2009 Pneumococcal Vaccine: 50+ Years (2 of 2 - PCV) 02/14/2013 02/15/2012 Cervical Cancer Screening Pap with HPV Testing (Age 30 to 64) Every 5 Years 01/24/2017 01/25/2012 COVID-19 Vaccine ( - season) 2024 12/02/2020 PHQ-2 (Physician [place]) 07/21/2024 Cervical Cancer Screening Pap Smear (Age [...] complete this topic Insurance [employer] Care Teams Steel Tester Relationship Specialty Start Date End Date Kaleb Fernandez MD [address] [place] [address] PCP - General FAMILY PRACTICE 06/11/22
--- OUTSIDE RECORDS SUMMARY | 2024-11-08 13:31 | XMS_ITS | Data Portability ---
Author Organization [facility] [place] Address [address] [place] [address] Care Team Providers Care [employer] Worker Name Role Phone GREGORIA CONWAY Primary Care [...] Imaging MAMMO, screening, digital, bilateral 2023 024 [facility], [address], [place], [address], 05:00:57 Medication Orders None recorded. Patient TargetsNo [...] singh , Darwin Richardson cted: 03/29 1156 CASTING MOLDER Order ing Locat ion: [place] Patho logy [...] as clini bassem mariano nted. Not Available [facility] (Lab) [address], [place], [address], 04/02/2021 13:57:26 08/26/19 23 08/26/2022 IMAGE GUIDE D PAP AND HPV REGAR DLESS image guided Pap, HPV regardless of Pap result SEE RESULT S BELOW CASE REPOR T: Cytol ogy Gynec ologi sussy Repor t Case: [id number] Autho yousif corazon Provi brannon: Jose Gomes Colle cted: 08/26 1506 CASTING MOLDER Order ing Locat ion: [place] Patho logy [...] mRNA E6/E7 : No HPV mRNA Detec ryn NOTE: This high risk HPV mRNA assay [...] as clini bassem mariano nted. Not Available [facility] (Lab) [address], [place], [address], 08/28/2022 12:18:00 03/04/20 24 03/04/2024 IMAGE GUIDE [...] as clini bassem mariano nted. Not Available [facility] (Lab) [address], [place], [address], 03/11/2024 13:03:28 04/05/20 21 MAMMO , scree bonnie, bilat eral No observ ation record ed. [facility] [address], [place], [address], 04/09/2021 16:47:21 Result Notes None recorded. Problems Name Problem SNOMED Code Status Onset Date Resolution Date Notes Provider Name and Address Organization Details Recorded Time Screenin g for malignan t neoplasm of cervix Completed 201203/28/2021 Pap Smear;Pra ctice ID: 0001 Dayana Naylor [facility] 17:12:04 Screenin g for malignan t neoplasm of rectum Completed 201203/28/2021 Screening for malignant neoplasms of the rectum;Pr actice ID: 0001 Dayana Naylor [facility] 17:12:05 Postpart um care Completed 201103/28/2021 Routine postpartu m follow-up ;Recorded Elsewhere : No Locati on: [facility] So urce: EHR Chron ic: N Practic e ID: 0001 Bill able Time: 05:33:00 AM Dayana Naylor [facility] 17:11:[address] Concept Completed 201703/28/2021 Encntr for social media senior associate exam (general) (routine) w/o abn findings; Practice ID: 0001 Dayana Naylor [facility] 17:12:08 Acute vaginiti s [id number] Completed 201503/28/2021 Acute vaginitis ;Practice ID: 0001 Dayana Naylor [facility] 17:11:31 Insertio n of intraute rine contrace ptive device Completed 201103/28/2021 INSERTION OF IUD;Recor ded Elsewhere : No Locati on: [facility] So urce: EHR Chron ic: N Practic e ID: 0001 Bill able Time: 08:00:00 AM Dayana Naylor [facility] 17:11:46 Speciali zed medical examinat ion Completed 201203/28/2021 Gynecolog ical Examinati on;Record ed Elsewhere : No Locati on: [facility] So urce: EHR Chron ic: N Practic e ID: 0001 Bill able Time: 05:00:00 PM Dayana Naylor null, [facility] 1 17:12:[address] Concept Completed 201503/28/2021 Encntr for general adult medical exam w/o abnormal findings; Recorded Elsewhere : No Locati on: [facility] So urce: EHR Chron ic: N Practic e ID: 0001 Bill able Time: 02:00:00 PM Dayana Naylor [facility] 1 17:12:07 Deliveri es by [id number] Completed 201103/28/2021 delivery, without mention of indicatio n, unspecifi ed as to episode of care;Huey rded Elsewhere : No Locati on: [facility] So urce: EHR Chron ic: N Practic e ID: 0001 Bill able Time: 10:00:00 AM Dayana Naylor [facility] 17:11:38 Breast cancer genetic marker of medardocepti bildante detected [id number] Completed 201303/28/2021 Genetic susceptib ility to malignant neoplasm of breast;Re corded Elsewhere : No Locati on: [facility] So urce: EHR Chron ic: N Practic e ID: 0001 Bill able Time: 10:00:00 AM Dayana sams [facility] 17:11:36 Dysfunct ional uterine bleeding Completed 201203/28/2021 Other disorders of menstruat ion and other abnormal bleeding from female genital tract;Rec orded Elsewhere : No Locati on: [facility] So urce: EHR Chron ic: N Practic e ID: 0001 Bill able Time: 10:45:00 AM Dayana Naylor [facility] 17:11:39 Irregula r periods [id number] Completed 201303/28/2021 Irregular menstrual cycle;Rec orded Elsewhere : No Locati on: [facility] So urce: EHR Chron ic: N Practic e ID: 0001 Bill able Time: 04:15:00 PM Dayana Naylor [facility] 17:11:48 Family planning surveill ance Completed 201103/28/2021 Contracep tive surveilla nce, unspecifi ed;Record ed Elsewhere : No Locati on: [facility] So urce: EHR Chron ic: N Practic e ID: 0001 Bill able Time: 02:00:00 PM Dayana Naylor [facility] 17:11:42 Body mass index 30+ - obesity [id number] Completed 201703/28/2021 Body mass index (BMI) 36.0-36.9 , adult;Rec orded Elsewhere : No Locati on: [facility] So urce: EHR Chron ic: N Practic e ID: 0001 Bill able Time: 01:00:00 PM Dayana Naylor [facility] 17:11:34 Follow-u p risk drug assessme nt Completed 201103/28/2021 Follow-up examinati on following completed treatment with high-risk medicatio n, not elsewhere classifie d;Recorde d Elsewhere : No Locati on: [facility] So urce: EHR Chron ic: N Practic e ID: 0001 Bill able Time: 11:00:00 AM Dayana Naylor [facility] 17:11:45 Female genital organ symptoms [id number] Completed 201303/28/2021 Unspecifi ed symptom associate d with female genital organs;Re corded Elsewhere : No Locati on: [facility] So urce: EHR Chron ic: N Practic e ID: 0001 Bill able Time: 09:15:00 AM Dayana Naylor [facility] 17:11:43 Procedur e on genitour inary system Completed 201303/28/2021 Steriliza tion;Huey rded Elsewhere : No Locati on: [facility] So urce: EHR Chron ic: N Practic e ID: 0001 Bill able Time: 10:00:00 AM Dayana sams [facility] 17:12:00 Postoper ative follow-u p visit Completed 201303/28/2021 Follow-up examinati on, following unspecifi ed surgery;R ecorded Elsewhere : No Locati on: [facility] So urce: EHR Chron ic: N Practic e ID: 0001 Bill able Time: 10:00:00 AM Dayana sams [facility] 17:11:50 Abdomina l pain [id number] Completed 201103/28/2021 Abdominal pain, other specified site;Huey rded Elsewhere : No Locati on: [facility] So urce: EHR Chron ic: N Practic e ID: 0001 Bill able Time: 05:33:00 AM Dayana sams [facility] 17:11:29 Dysmenor jessica [id number] Completed 201303/28/2021 Dysmenorr hea;Recor ded Elsewhere : No Locati on: [facility] So urce: EHR Chron ic: N Practic e ID: 0001 Bill able Time: 04:15:00 PM Dayana sams [facility] 17:11:40 Pregnanc y test negative [id number] Completed 201103/28/2021 examinati on or test, negative result;Re corded Elsewhere : No Locati on: [facility] So urce: EHR Chron ic: N Practic e ID: 0001 Bill able Time: 08:00:00 AM Dayana sams [facility] 17:11:54 Primigra mari [id number] Completed 201103/28/2021 Supervisi on of normal first ;Practice ID: 0001 Dayana sams [facility] 17:11:58 Routine antenata l care Completed 201103/28/2021 Supervisi on of other normal ;Practice ID: 0001 Dayana Naylor [facility] 17:12:02 Prematur e rupture of membrane s with antenata l problem [id number] Completed 201103/28/2021 Premature rupture of membranes , antepartu m;Practic e ID: 0001 Dayana Naylor [facility] 17:11:56 Amenorrh ea [id number] Completed 201403/28/2021 Amenorrhe a;Recorde d Elsewhere : No Locati on: [facility] So urce: EHR Chron ic: N Practic e ID: 0001 Bill able Time: 09:00:00 AM [facility] 17:11:32 Problem Notes None recorded. Procedures Surgical History Date Name Laterality Status Provider Name and Address Organization Details Recorded Time 03/29/20 21 Date of Last Pap Smear completed [facility] 08/26/2022 09:39:27 03/29/20 21 Date of Last Mammogram completed [facility] 03/29/2021 11:10:24 10/20/19 21 completed [facility] 03/29/2021 11:05:13 10/20/19 21 Date of Last Colonoscopy completed [facility] 03/29/2021 11:05:13 Caesarean Section completed [facility] 03/29/2021 11:05:24 Orthopedic Surgery completed [facility] 08/26/2022 09:37:43 Other completed [facility] 08/26/2022 09:37:43 Cholecystectomy completed [facility] 08/26/2022 09:37:43 procedure on upper arm completed [facility] 03/08/2020 15:53:15 Tonsillectomy completed [facility] 03/08/2020 15:53:21 Tubal Ligation completed [facility] 03/08/2020 15:53:26 exploration of spinal fusion completed [facility] 03/08/2020 15:53:38 Imaging Results Imaging Date Name Status LastModified by Organiz ation Details LastModified Time 04/05/2021 MAMMO, screening, bilateral completed [facility] [address], [place], [address], 04/09/2021 16:47:21 Procedure Notes None recorded. Medical Equipment None Reported. Allergies No known drug allergies Medications Name Sig Start Date Stop Date Status Note LastModified by Organization Details LastModified Time Prometriu m 200 mg capsule take 1 capsule by oral route every day for 10 days in the evening 12/02 completed Prescrib diana Cooley e: No Locat ion: [facility] odify By: roberto quispe DateTime : [...] Prescrib ed Elsewher e: Yes Loca tion: [facility] odify By: neri delciduntlay DateTime : 02/28/20 18 01:00:00 PM Not Available Not Available Not Available Motrin 600 mg tablet take 1 tablet by oral route 3 times every day with food 08/26 completed Prescrib ed Elsewher e: Yes Loca tion: [facility] odify By: ginna robledo DateTime : [...] Prescrib ed Elsewher e: Yes Loca tion: [facility] odify By: montse robledo DateTime : 02/20/20 12 03:45:00 PM Not Available Not Available Not Available ketorolac 10 mg tablet TAKE 1 TABLET BY MOUTH EVERY 8 HOURS NEED FOR PAIN 08/26 completed Not Available Not Available Not Available amoxicill in 875 mg tablet take 1 tablet by oral route every 12 hours 06/09 completed Prescrib ed Elsewher e: Yes [facility] By: montse robledo DateTime : 02/20/20 12 03:45:00 PM Not Available Not Available Not Available Metrogel Vaginal 0.75 % (37.5 mg/5 gram) insert 1 applicat orful by vaginal route every day at bedtime 02/27 completed Prescrib ed Elsewher e: No Locat ion: [facility] odify By: neri delcidunter DateTime : [...] Prescrib ed Elsewher e: No Locat ion: [facility] odify By: [email or web address] Mckeon ncounter DateTime [...] Prescrib ed Elsewher e: Yes Loca tion: [facility] odify By: neri delcidunter DateTime : 02/28/20 18 01:00:00 PM Not Available Not Available Not Available Terazol 7 0.4 % vaginal cream insert 1 applicat orful by vaginal route every day for 7 days at bedtime 02/11 completed Prescrib ed Elsewher e: No Locat ion: [facility] odify By: shae delciduntlay DateTime : 02/06/20 [...] Elsewher e: Yes Loca tion: Radha mckeon [facility] odify By: montse robledo DateTime : 01/23/20 12 10:15:00 AM Not Available Not Available Not Available Vitamin 27 mg iron-0.8 mg tablet take 1 tablet by oral route every day 06/09 completed Prescrib ed Elsewher e: Yes Loca tion: [facility] odify By: montse robledo DateTime : 01/23/20 12 10:15:00 AM Not Available Not Available Not Available NuvaRing 0.12 mg-0.015 mg/24 hr vaginal insert 1 vaginal ring by vaginal route every month leave in place for 3 weeks, remove for 1 week 11/17 completed Prescrib ed Elsewher e: No Locat ion: [facility] odify By: neri delciduntlay DateTime : 08/31/19 [...] ed Elsewher e: Yes Loca [facility]ion: [place] [facility] odify By: neri delcidunter DateTime : 02/28/20 18 01:00:00 PM Not Available Not Available Not Available Amitiza 03/28 completed Not Available Not Available Not Available Amitiza 8 mcg capsule take 1 capsule by oral route 2 times every day with food and water 03/29 completed Prescrib ed Elsewher e: Yes Loca [facility]ion: [place] [facility] odify By: neri delciduntlay DateTime : 02/28/20 18 01:00:00 PM Not Available Not Available Not Available Vitamin D3 125 mcg (5,000 unit) tablet take 2 by Oral route 4 times every week 03/29 completed Prescrib ed Elsewher e: Yes Loca tion: [facility] odify By: neri delcidunter DateTime : [...] Updated DateTime 03/29/2021 176.53 cm 36 kg/m2 903954.3 2 g 112 mm[Hg] 79 mm[Hg] Dayana Naylor [facility] 11:04:53 Date Recorded Body weight Provider Name an d Address Organization Details Last Updated DateTime 08/26/2022 157831.77 g Dayana Esparza [facility] 08/26/2022 09:37:07 Date Recorded Systolic blood pressure Diastolic blood pressure Provider Name and Address Organization Details Last Updated DateTime 08/26/2022 122 mm[Hg] 72 mm[Hg] Colleen Cerda, [facility]- [address], [place], [address], [facility] 08/26/2022 09:47:17 Date Recorded Body height Body mass index (BMI) Body weight Systolic blood pressure Diastolic blood pressure Provider Name and Address Organization Details Last Updated DateTime 03/04/2024 176.53 cm 35.5 kg/m2 004808.2 6 g 129 mm[Hg] 76 mm[Hg] Alaina Wolf [facility] 14:18:01 Social History Question Answer Notes LastModified by Organizat ion Details LastModified Time Tobacco Smoking Status Never Smoker Dayana Esparza null, [facility] 08/26/2022 09:37:40 Do You Have An [...] Or The Highest Degree You Have Received? 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 [id number] Information not available 08/26/2022 Do You Use [...] Maternal Grandmother Carcinoma in situ of breast [email or web address] Not available 2023 13:51:46 Maternal Grandmother Malignant tumor of breast Not available 2022 09:37:29 Mother Carcinoma in situ of breast Not available 2023 13:51:46 Mother Suspected lung cancer [email or web address] Not available 02/18 13:51:46 Mother Malignant tumor of breast Not available 2022 09:37:29 Father Diabetes mellitus [email or web address] Not available 2019 15:52:33 Maternal Grandfather Suspected lung cancer [email or web address] Not available 02/18 13:51:46 Unspecified Relation Malignant tumor of breast Not available 2022 09:37:29 Sister Malignant tumor of breast Not available 2022 09:37:29 Paternal Grandmother Malignant tumor of breast Not available 2022 09:37:29 Medical History Condition Response Diabetes Y Arthritis Y Depression/ depression Y Gynecological History Statement/Question [...] SNOMED-CT Code Diagnosis ICD10 Code Diagnosis Note [id number] Colleen Cerda [facility] [address] [address] 03/29/2021 10:30:55 03/29/2021 12:12:53 Gynecologic examination 34028963 Z01.419 Take Calcium with Vitamin D 12-1500mg daily. Do monthly self breast exams. It is advised to get annual flu shot in the fall and she could obtain at [facility] or [facility] care clinic. If you haven't [...] UTD 2020Dexa-w ill consider within next 2-3yrs. [id number] Colleen Cerda [facility] [address],[facility] [place] [address] 08/26/2022 09:23:40 08/26/2022 10:11:39 Gynecologic examination 75281124 Z01.419 Z11.51 Take Calcium with Vitamin D 12-1500mg daily. Do monthly self breast exams. It is advised to get annual flu shot in the fall and she could obtain at [facility] or [facility] care clinic. If you haven't [...] Screen PCP Routine Labs PCPMammo ordered PCP [id number] YECENIA ROE MD [place] [address] [address] 03/04/2024 13:50:43 03/08/2024 09:57:35 Screening mammography 61675302 Z12.31 - small pea sized lump in left breast, new per patient- confirmed presence of small mass, mobile, nontender- will send order for mammogram Gynecologi c examination 24083284 Z01.419 [facility] woman care- Cervical cancer screening: Pap smear [...] Name 03/29/2021 1 [place] [id number] Deana Hannah [id number] Deana Hannah 08/26/2022 1 [employer] (EPO) [id number] Deana Hannah [id number] Deana Hannah 03/04/2024 1 [employer] (EPO) [id number] Deana Hannah [id number] 3 Deana Hannah Notes Date Note Type Note Provider Name and Address Organization Details Recorded Time 03/29/2021 text/html Annual Business Consult Post-MenopausalRe ported bypatient.Menopau dante Symptoms:no menopausal symptoms; [...] year; history of recent colonoscopy Colleen Cerda [facility] [address], [place], [address], [facility] 03/29/2021 11:33:05 08/26/2022 text/html Annual Business Consult Post-MenopausalRe ported byZakia dante Symptoms:no menopausal symptoms; [...] mammogram; history of recent colonoscopy Colleen Cerda [facility] [address], [place], [address], [facility] 08/26/2022 09:58:20 03/04/2024 text/html Presents today for her annual well-woman exam. Denies abnormal vaginal discharge. She is sexually active and denies dyspareunia. She noticed a small lump in her medial left breast. Not painful, not enlarging, first noticed 2 weeks ago. Menopausal, no PMB. YECENIA ROE MD [address], [place], [address], [facility] 03/07/2024 23:34:22 OBGyn Episode No OBEpisode recorded.
--- OUTSIDE RECORDS SUMMARY | 2024-11-08 13:31 | XMS_ITS | Clinical Summary ---
Author Organization [facility] Address [address] [place] [address] Care Team Providers Care Coal Digger Name Role Phone Marcelino Lieberman MD Primary Care Provider [phone] Marcelino Lieberman MD Unavailable [phone] Source Comments [facility],non-owned Affiliates and Associated Physician Practices is amultiple site organization consisting of ambulatory clinics and hospital sitesin [place], [place], [place]. This disclosure is being madepursuant to the Care Everywhere program and may not contain all information available regarding this patient. Last updated 18.[facility] Adomo Allergies No known active allergies Medications * Be aware that medications may not be up to date on this document. Alwaysverify current medications with the patient. vitamin-ferrous fumarate-folic acid (NATALCARE PLUS) 27-1 MG [...] times daily. 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 Gender Identity Not on file Sexual Orientation [...] SCREENING 1969 LIPID TESTING 1969 MAMMOGRAM 1969 HIV SCREENING 1984 HEPATITIS C SCREENING 12/27/1987 HEPATITIS B VACCINE (1 of 3 - 19+ 3-dose series) 1988 PNEUMOCOCCAL VACCINE 50+ (2 of 2 - PCV) 01/01/2020 02/15/2012 ZOSTER VACCINE (1 of 2) 01/01/2020 DTAP/TDAP/TD VACCINES (2 - T d or Tdap) 02/11/2022 02/12/2012 COVID-19 VACCINE (1 - 2023-2 5 season) 2024 DEPRESSION SCREENING 07/21/2024 INFLUENZA VACCINE (Season Ended) 2025 HIB VACCINE Aged Out No longer eligi [...] patient's age to complete this topic Insurance [facility] Advance Directives * FULL RESUSCITATION (Latest Code Status on File) Date Activated Date Inactivated Comments 02/07/2012 5:29 PM 02/15/2012 3:52 PM * FULL RESUSCITATION Date Activated Date Inactivated Comments 02/07/2012 5:06 PM 02/07/2012 5:29 PM * FULL RESUSCITATION Date Activated Date Inactivated Comments 01/25/2012 11:40 PM 02/07/2012 5:06 PM Care Teams Coal Digger Relationship Specialty Start Date End Date Marcelino Lieberman MD [address] [place] [address] PCP - General 06/27/20 Marcelino Lieberman MD [address] [place] [id number] 06/27/20
[2024-11-08 13:32] VITALS: BP 138/82; PULSE 75; RESP 17; TEMP 36.6; O2SAT 96
== END 2024-11-08 13:32 | disposition home or self-care (01) ==
PROVIDERS: Emergency Provider Family Medicine; PCP Family Medicine
DX: M47.816 Spondylosis without myelopathy or radiculopathy, lumbar region (principal); Z87.891 Personal history of nicotine dependence
CPT/HCPCS: 72100; 96372; 99283; A9270; J2270

== ENCOUNTER 2024-11-13 09:07 | Outpatient (CLI) | payer OTHER, SELFPAY ==
--- NOTE | ~2024-11-13 | MR_ITS ---
EXAMINATION: MR lumbar spine wo/w con DATE: 11/13/2024 09:57 INDICATION: Low back pain radiating to the right leg TECHNIQUE: Magnetic resonance imaging (MRI) of the lumbar spine was performed without and with 20 mL Multihance intravenous contrast. Sequences included sagittal T2-weighted FSE, sagittal T2-weighted FS FSE, sagittal T1-weighted FSE, and axial T2-weighted FSE. COMPARISON: Radiographs dated 11/08/2024 FINDINGS: 10 degrees lumbar dextroscoliosis. Postoperative changes with posterior decompression with partial L4 laminectomy and posterior spinal fusion at L4-5 with bilateral vertical jannet and pedicle screw fixati on. 3 mm retrolisthesis L5 on S1. Vertebral body heights are normal. Normal marrow signal. Severe ri ght-sided disc height loss with mild fibrofatty and fibrovascular degenerative endplate changes at L5 -S1. Moderate disc height loss at L3-L4 and mild disc height loss at L1-L2, L2-L3 and L4-L5. The conu s medullaris terminates at L1. There is normal signal in the caudal spinal cord. 1 cm T2 hyperintense nonenhancing exophytic left renal cyst. Paravertebral soft tissues are unremarkable. No abnormally e nhancing lesions identified although aside from within the central canal evaluation is somewhat limit ed by lack of fat saturation due to the metallic fixation instrumentation. The following disc levels are specifically discussed: T12-L1: Annular fissure and small right paracentral disc extrusion with disc material extending coupl e millimeter cephalad to the level of the inferior endplate of T12. There is mild bilateral facet julita nt osteoarthritis. There is no neural foraminal stenosis. There is normal central canal stenosis. L1-L2: Disc is bulging with annular fissure. There is mild bilateral facet joint osteoarthritis. Ther e is minimal bilateral neural foraminal stenosis. There is mild central canal stenosis. L2-L3: Disc is bulging with superimposed annular fissure and right paracentral disc extrusion with di sc material extending up to 1.3 cm cephalad to the level of the inferior endplate of L2. There is mil d bilateral facet joint osteoarthritis. There is mild bilateral neural foraminal stenosis. There is m ild central canal stenosis with moderate narrowing of the right lateral recess resulting from the dis c extrusion. L3-L4: Disc is bulging with annular fissure and superimposed small left subarticular zone disc protru katia.There is mild hypertrophy of the ligamentum flavum. There is mild bilateral facet joint osteoar thritis. There is moderate left and mild to moderate right neural foraminal stenosis. There is modera te central canal stenosis with narrowing of the lateral recesses, left greater than right. L4-L5: Disc is mildly bulging. 2 decompression and posterior spinal fusion with no central canal sten osis. There is mild bilateral neural foraminal stenosis. L5-S1: Disc is bulging. There is mild bilateral facet joint osteoarthritis. There is moderate right a nd mild left neural foraminal stenosis. There is no central canal stenosis. IMPRESSION: 1. 10 degrees lumbar dextroscoliosis with moderate to severe spondylosis, partial L4 laminectomy and instrumented L4-L5 posterior spinal fusion. Reviewed, dictated and finalized at location B. IMPRESSION: 1. 10 degrees lumbar dextroscoliosis with moderate to severe spondylosis, parti al L4 laminectomy and instrumented L4-L5 posterior spinal fusion.
--- OUTSIDE RECORDS SUMMARY | 2024-11-13 09:10 | XMS_ITS | Clinical Summary ---
Author Organization [facility] Address [address] [place] [address] Care Team Providers Care Support Analyst Name Role Phone Marcelino Lieberman MD Primary Care Provider [phone] Marcelino Lieberman MD Unavailable [phone] Source Comments [facility],non-owned Affiliates and Associated Physician Practices is amultiple site organization consisting of ambulatory clinics and hospital sitesin [place], [place], [place] and [place]. This disclosure is being madepursuant to the Care Everywhere program and may not contain all information available regarding this patient. 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 Gender Identity Not on file Sexual Orientation [...] patient's age to complete this topic Insurance [facility] Advance Directives * FULL RESUSCITATION (Latest Code Status on File) Date Activated Date Inactivated Comments 02/07/2012 5:29 PM 02/15/2012 3:52 PM * FULL RESUSCITATION Date Activated Date Inactivated Comments 02/07/2012 5:06 PM 02/07/2012 5:29 PM * FULL RESUSCITATION Date Activated Date Inactivated Comments 01/25/2012 11:40 PM 02/07/2012 5:06 PM Care Teams Support Analyst Relationship Specialty Start Date End Date Marcelino Lieberman MD [address] [place] [address] PCP - General 06/27/20 Marcelino Lieberman MD [address] [place] [address] 06/27/20
--- OUTSIDE RECORDS SUMMARY | 2024-11-13 09:10 | XMS_ITS | Data Portability ---
Author Organization [facility] [place] Address [address] [place] [address] Care Team Providers Care Hospital Pharmacist Name Role Phone GREGORIA CONWAY Primary Care Provider [phone] Assessment Encounter Date Assessment Date Assessment LastModified [...] Imaging MAMMO, screening, digital, bilateral 2023 024 [facility], [address], [place], [address], 05:00:57 Medication Orders None recorded. Patient TargetsNo [...] singh , Darwin Richardson cted: 03/29 1156 MEDICAL UNIT SECRETARY Order ing Locat ion: [place] Patho logy [...] as clini bassem mariano nted. Not Available [facility] (Lab) [address], [place], [address], 04/02/2021 13:57:26 08/26/19 23 08/26/2022 IMAGE GUIDE D PAP AND HPV REGAR DLESS image guided Pap, HPV regardless of Pap result SEE RESULT S BELOW CASE REPOR T: Cytol ogy Gynec ologi sussy Repor t Case: [id number] Autho yousif corazon Provi brannon: Jose Gomes Colle cted: 08/26 1506 MEDICAL UNIT SECRETARY Order ing Locat ion: [place] Patho logy [...] as clini bassem mariano nted. Not Available [facility] (Lab) [address], [place], [address], 08/28/2022 12:18:00 03/04/20 24 03/04/2024 IMAGE GUIDE [...] as clini bassem mariano nted. Not Available [facility] (Lab) [address], [place], [address], 03/11/2024 13:03:28 04/05/20 21 MAMMO , scree bonnie, bilat eral No observ ation record ed. [facility] [address], [place], [address], 04/09/2021 16:47:21 Result Notes None recorded. Problems Name Problem SNOMED Code Status Onset Date Resolution Date Notes Provider Name and Address Organization Details Recorded Time Screenin g for malignan t neoplasm of cervix Completed 201203/28/2021 Pap Smear;Pra ctice ID: 0001 Dayana Naylor [facility] 17:12:04 Screenin g for malignan t neoplasm of rectum Completed 201203/28/2021 Screening for malignant neoplasms of the rectum;Pr actice ID: 0001 Dayana Naylor [facility] 17:12:05 Postpart um care Completed 201103/28/2021 Routine postpartu m follow-up ;Recorded Elsewhere : No Locati on: [facility] So urce: EHR Chron ic: N Practic e ID: 0001 Bill able Time: 05:33:00 AM Dayana Naylor [facility] 17:11:[address] Concept Completed 201703/28/2021 Encntr for film reader exam (general) (routine) w/o abn findings; Practice ID: 0001 Dayana Naylor [facility] 17:12:08 Acute vaginiti s [id number] Completed 201503/28/2021 Acute vaginitis ;Practice ID: 0001 Dayana Naylor [facility] 17:11:31 Insertio n of intraute rine contrace ptive device Completed 201103/28/2021 INSERTION OF IUD;Recor ded Elsewhere : No Locati on: [facility] So urce: EHR Chron ic: N Practic e ID: 0001 Bill able Time: 08:00:00 AM Dayana Naylor [facility] 17:11:46 Speciali zed medical examinat ion Completed 201203/28/2021 Gynecolog ical Examinati on;Record ed Elsewhere : No Locati on: [facility] So urce: EHR Chron ic: N Practic e ID: 0001 Bill able Time: 05:00:00 PM Dayana Naylor null, [facility] 1 17:12:[address] Concept Completed 201503/28/2021 Encntr for general adult medical exam w/o abnormal findings; Recorded Elsewhere : No Locati on: [facility] So urce: EHR Chron ic: N Practic e ID: 0001 Bill able Time: 02:00:00 PM Dayana Naylor [facility] 1 17:12:07 Deliveri es by [id number] Completed 201103/28/2021 delivery, without mention of indicatio n, unspecifi ed as to episode of care;Huey rded Elsewhere : No Locati on: [facility] So urce: EHR Chron ic: N Practic e ID: 0001 Bill able Time: 10:00:00 AM Dayana Naylor [facility] 17:11:38 Breast cancer genetic marker of medardocepti bildante detected [id number] Completed 201303/28/2021 Genetic susceptib ility to malignant neoplasm of breast;Re corded Elsewhere : No Locati on: [facility] So urce: EHR Chron ic: N Practic e ID: 0001 Bill able Time: 10:00:00 AM Dayana sams [facility] 17:11:36 Dysfunct ional uterine bleeding Completed 201203/28/2021 Other disorders of menstruat ion and other abnormal bleeding from female genital tract;Rec orded Elsewhere : No Locati on: [facility] So urce: EHR Chron ic: N Practic e ID: 0001 Bill able Time: 10:45:00 AM Dayana Naylor [facility] 17:11:39 Irregula r periods [id number] Completed 201303/28/2021 Irregular menstrual cycle;Rec orded Elsewhere : No Locati on: [facility] So urce: EHR Chron ic: N Practic e ID: 0001 Bill able Time: 04:15:00 PM Dayana Naylor [facility] 17:11:48 Family planning surveill ance Completed 201103/28/2021 Contracep tive surveilla nce, unspecifi ed;Record ed Elsewhere : No Locati on: [facility] So urce: EHR Chron ic: N Practic e ID: 0001 Bill able Time: 02:00:00 PM Dayana Naylor [facility] 17:11:42 Body mass index 30+ - obesity [id number] Completed 201703/28/2021 Body mass index (BMI) 36.0-36.9 , adult;Rec orded Elsewhere : No Locati on: [facility] So urce: EHR Chron ic: N Practic e ID: 0001 Bill able Time: 01:00:00 PM Dayana Naylor [facility] 17:11:34 Follow-u p risk drug assessme nt Completed 201103/28/2021 Follow-up examinati on following completed treatment with high-risk medicatio n, not elsewhere classifie d;Recorde d Elsewhere : No Locati on: [facility] So urce: EHR Chron ic: N Practic e ID: 0001 Bill able Time: 11:00:00 AM Dayana Naylor [facility] 17:11:45 Female genital organ symptoms [id number] Completed 201303/28/2021 Unspecifi ed symptom associate d with female genital organs;Re corded Elsewhere : No Locati on: [facility] So urce: EHR Chron ic: N Practic e ID: 0001 Bill able Time: 09:15:00 AM Dayana Naylor [facility] 17:11:43 Procedur e on genitour inary system Completed 201303/28/2021 Steriliza tion;Huey rded Elsewhere : No Locati on: [facility] So urce: EHR Chron ic: N Practic e ID: 0001 Bill able Time: 10:00:00 AM Dayana sams [facility] 17:12:00 Postoper ative follow-u p visit Completed 201303/28/2021 Follow-up examinati on, following unspecifi ed surgery;R ecorded Elsewhere : No Locati on: [facility] So urce: EHR Chron ic: N Practic e ID: 0001 Bill able Time: 10:00:00 AM Dayana sams [facility] 17:11:50 Abdomina l pain [id number] Completed 201103/28/2021 Abdominal pain, other specified site;Huey rded Elsewhere : No Locati on: [facility] So urce: EHR Chron ic: N Practic e ID: 0001 Bill able Time: 05:33:00 AM Dayana sams [facility] 17:11:29 Dysmenor jessica [id number] Completed 201303/28/2021 Dysmenorr hea;Recor ded Elsewhere : No Locati on: [facility] So urce: EHR Chron ic: N Practic e ID: 0001 Bill able Time: 04:15:00 PM Dayana sams [facility] 17:11:40 Pregnanc y test negative [id number] Completed 201103/28/2021 examinati on or test, negative result;Re corded Elsewhere : No Locati on: [facility] So urce: EHR Chron ic: N Practic e ID: 0001 Bill able Time: 08:00:00 AM Dayana sams [facility] 17:11:54 Primigra mari [id number] Completed 201103/28/2021 Supervisi on of normal first ;Practice ID: 0001 Dayana sams [facility] 17:11:58 Routine antenata l care Completed 201103/28/2021 Supervisi on of other normal ;Practice ID: 0001 Dayana Naylor [facility] 17:12:02 Prematur e rupture of membrane s with antenata l problem [id number] Completed 201103/28/2021 Premature rupture of membranes , antepartu m;Practic e ID: 0001 Dayana Naylor [facility] 17:11:56 Amenorrh ea [id number] Completed 201403/28/2021 Amenorrhe a;Recorde d Elsewhere : No Locati on: [facility] So urce: EHR Chron ic: N Practic e ID: 0001 Bill able Time: 09:00:00 AM [facility] 17:11:32 Problem Notes None recorded. Procedures Surgical History Date Name Laterality Status Provider Name and Address Organization Details Recorded Time 03/29/20 21 Date of Last Pap Smear completed [facility] 08/26/2022 09:39:27 03/29/20 21 Date of Last Mammogram completed [facility] 03/29/2021 11:10:24 10/20/19 21 completed [facility] 03/29/2021 11:05:13 10/20/19 21 Date of Last Colonoscopy completed [facility] 03/29/2021 11:05:13 Caesarean Section completed [facility] 03/29/2021 11:05:24 Orthopedic Surgery completed [facility] 08/26/2022 09:37:43 Other completed [facility] 08/26/2022 09:37:43 Cholecystectomy completed [facility] 08/26/2022 09:37:43 procedure on upper arm completed [facility] 03/08/2020 15:53:[address] [facility] 03/08/2020 15:53:21 Tubal Ligation completed [facility] 03/08/2020 15:53:26 exploration of spinal fusion completed [facility] 03/08/2020 15:53:38 Imaging Results Imaging Date Name Status LastModified by Organiz ation Details LastModified Time 04/05/2021 MAMMO, screening, bilateral completed [facility] [address], [place], [address], 04/09/2021 16:47:21 Procedure Notes None recorded. Medical Equipment None Reported. Allergies No known drug allergies Medications Name Sig Start Date Stop Date Status Note LastModified by Organization Details LastModified Time Prometriu m 200 mg capsule take 1 capsule by oral route every day for 10 days in the evening 12/02 completed Prescrib diana Cooley e: No Locat ion: [facility] odify By: roberto quispe DateTime : 11/22/19 [...] Prescrib ed Elsewher e: Yes Loca tion: [facility] odify By: neri delciduntlay DateTime : 02/28/20 18 01:00:00 PM Not Available Not Available Not Available Motrin 600 mg tablet take 1 tablet by oral route 3 times every day with food 08/26 completed Prescrib ed Elsewher e: Yes Loca tion: [facility] odify By: ginna robledo DateTime : 02/20/20 [...] Prescrib ed Elsewher e: Yes Loca tion: [facility] odify By: montse robledo DateTime : 02/20/20 12 03:45:00 PM Not Available Not Available Not Available ketorolac 10 mg tablet TAKE 1 TABLET BY MOUTH EVERY 8 HOURS NEED FOR PAIN 08/26 completed Not Available Not Available Not Available amoxicill in 875 mg tablet take 1 tablet by oral route every 12 hours 06/09 completed Prescrib ed Elsewher e: Yes [facility] By: montse robledo DateTime : 02/20/20 12 03:45:00 PM Not Available Not Available Not Available Metrogel Vaginal 0.75 % (37.5 mg/5 gram) insert 1 applicat orful by vaginal route every day at bedtime 02/27 completed Prescrib ed Elsewher e: No Locat ion: [facility] odify By: neri delcidunter DateTime : 02/01/20 [...] Prescrib ed Elsewher e: No Locat ion: [facility] odify By: amkraimundo Mckeon ncounter DateTime : [...] Prescrib ed Elsewher e: Yes Loca tion: [facility] odify By: neri delcidunter DateTime : 02/28/20 18 01:00:00 PM Not Available Not Available Not Available Terazol 7 0.4 % vaginal cream insert 1 applicat orful by vaginal route every day for 7 days at bedtime 02/11 completed Prescrib ed Elsewher e: No Locat ion: Radha mckeon [facility] odify By: shae delciduntlay DateTime : [...] e: Yes Loca tion: Radha mckeon [facility] odify By: montse robledo DateTime : 01/23/20 12 10:15:00 AM Not Available Not Available Not Available Vitamin 27 mg iron-0.8 mg tablet take 1 tablet by oral route every day 06/09 completed Prescrib ed Elsewher e: Yes Loca tion: [facility] odify By: montse robledo DateTime : 01/23/20 12 10:15:00 AM Not Available Not Available Not Available NuvaRing 0.12 mg-0.015 mg/24 hr vaginal insert 1 vaginal ring by vaginal route every month leave in place for 3 weeks, remove for 1 week 11/17 completed Prescrib ed Elsewher e: No Locat ion: Rad[facility] odify By: neri delciduntlya DateTime : 08/31/19 14 04:15:00 PM Not [...] Prescrib ed Elsewher e: Yes Loca [facility]ion[facility] odify By: neri delcidunter DateTime : 02/28/20 18 01:00:00 PM Not Available Not Available Not Available Amitiza 03/28 completed Not Available Not Available Not Available Amitiza 8 mcg capsule take 1 capsule by oral route 2 times every day with food and water 03/29 completed Prescrib ed Elsewher e: Yes Loca tion: [facility] odify By: neri delciduntlay DateTime : 02/28/20 18 01:00:00 PM Not Available Not Available Not Available Vitamin D3 125 mcg (5,000 unit) tablet take 2 by Oral route 4 times every week 03/29 completed Prescrib ed Elsewher e: Yes Loca tion: [facility] odify By: neri delcidunter DateTime : 02/28/20 [...] Updated DateTime 03/29/2021 176.53 cm 36 kg/m2 783815.3 2 g 112 mm[Hg] 79 mm[Hg] Dayana Naylor [facility] 11:04:53 Date Recorded Body weight Provider Name an d Address Organization Details Last Updated DateTime 08/26/2022 091338.77 g Dayana Esparza [facility] 08/26/2022 09:37:07 Date Recorded Systolic blood pressure Diastolic blood pressure Provider Name and Address Organization Details Last Updated DateTime 08/26/2022 122 mm[Hg] 72 mm[Hg] Colleen Cerda, [facility]- [address], [place], [address], [facility] 08/26/2022 09:47:17 Date Recorded Body height Body mass index (BMI) Body weight Systolic blood pressure Diastolic blood pressure Provider Name and Address Organization Details Last Updated DateTime 03/04/2024 176.53 cm 35.5 kg/m2 000250.2 6 g 129 mm[Hg] 76 mm[Hg] Alaina Wolf [facility] 14:18:01 Social History Question Answer Notes LastModified by Organizat ion Details LastModified Time Tobacco Smoking Status Never Smoker Dayana Esparza null, [facility] 08/26/2022 09:37:40 Do You Have An [...] Or The Highest Degree You Have Received? 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 [id number] Information not available 08/26/2022 Do You Use [...] Maternal Grandmother Carcinoma in situ of breast [email or web address] Not available 2023 13:51:46 Maternal Grandmother Malignant tumor of breast Not available 2022 09:37:29 Mother Carcinoma in situ of breast [email or web address] Not available 2023 13:51:46 Mother Suspected lung cancer Not available 02/18 13:51:46 Mother Malignant tumor of breast Not available 2022 09:37:29 Father Diabetes mellitus [email or web address] Not available 2019 15:52:33 Maternal Grandfather Suspected lung cancer [email or web address] Not available 02/18 13:51:46 Unspecified Relation Malignant [...] SNOMED-CT Code Diagnosis ICD10 Code Diagnosis Note [id number] Colleen Cerda [facility] [address],[place] [address] 03/29/2021 10:30:55 03/29/2021 12:12:53 Gynecologic examination 58921122 Z01.419 Take Calcium with Vitamin D 12-1500mg daily. Do monthly self breast exams. It is advised to get annual flu shot in the fall and she could obtain at [facility] or [facility] care clinic. If you haven't received [...] UTD 2020Dexa-w ill consider within next 2-3yrs. [id number] Colleen Cerda [facility] [address],[facility] [place] [address] 08/26/2022 09:23:40 08/26/2022 10:11:39 Gynecologic examination 55990023 Z01.419 Z11.51 Take Calcium with Vitamin D 12-1500mg daily. Do monthly self breast exams. It is advised to get annual flu shot in the fall and she could obtain at [facility] or [facility] care clinic. If you haven't received [...] Screen PCP Routine Labs PCPMammo ordered PCP [id number] YECENIA ROE MD [facility] [address] [address] 03/04/2024 13:50:43 03/08/2024 09:57:35 Screening mammography 09788748 Z12.31 - small pea sized lump in left breast, new per patient- confirmed presence of small mass, mobile, nontender- will send order for mammogram Gynecologi c examination 10838846 Z01.419 [facility]- Cervical cancer screening: Pap smear [...] Name 03/29/2021 1 [place] [id number] Deana Hannah [id number] Deana Hannah 08/26/2022 1 [employer] (EPO) [id number] Deana Hannah [id number] Deana Hannah 03/04/2024 1 [employer] (EPO) [id number] Deana Hannah [id number] Deana Hannah Notes Date Note Type Note Provider Name and Address Organization Details Recorded Time 03/29/2021 text/html Annual Air Export Coordinator Post-MenopausalRe ported bypatient.Menopau dante Symptoms:no menopausal symptoms; [...] year; history of recent colonoscopy Colleen Cerda [facility] [address], [place], [address], [facility] 03/29/2021 11:33:05 08/26/2022 text/html Annual Air Export Coordinator Post-MenopausalRe ported byZakia dante Symptoms:no menopausal symptoms; [...] mammogram; history of recent colonoscopy Colleen Cerda [facility] [address], [place], [address], [facility] 08/26/2022 09:58:20 03/04/2024 text/html Presents today for her annual well-woman exam. Denies abnormal vaginal discharge. She is sexually active and denies dyspareunia. She noticed a small lump in her medial left breast. Not painful, not enlarging, first noticed 2 weeks ago. Menopausal, no PMB. YECENIA ROE MD [address], [place], [address], [facility] 03/07/2024 23:34:22 OBGyn Episode No OBEpisode recorded.
--- OUTSIDE RECORDS SUMMARY | 2024-11-13 09:10 | XMS_ITS | Clinical Summary ---
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 Name Role Phone Kaleb Fernandez MD Primary Care Provider [phone] Allergies No known active allergies Medications metFORMIN [...] (07/03/2022): Added automatically from request for surgery [id number] Family History Medical History Relation Comments Cancer [...] ( - season) 2024 12/02/2020 PHQ-2 (Physician [place]) 07/21/2024 Cervical Cancer Screening Pap Smear (Age [...] complete this topic Insurance [employer] Care Teams Reinforcing Steel Worker Wire Mesh Relationship Specialty Start Date End Date Kaleb Fernandez MD [address] [place] [address] PCP - General FAMILY PRACTICE 06/11/22
== END 2024-11-13 09:08 | disposition home or self-care (01) ==
LOC: CHSIMG 09:08
PROVIDERS: PCP Family Medicine; Visit Provider Family Medicine
DX: M54.41 Lumbago with sciatica, right side (principal); M41.86 Other forms of scoliosis, lumbar region; Z98.1 Arthrodesis status; Z98.890 Other specified postprocedural states
CPT/HCPCS: 72158; A9577

== ENCOUNTER 2024-12-17 16:42 | Outpatient (RCR) | payer OTHER, SELFPAY ==
--- NOTE | 2024-12-17 17:51 | OPREHPOC ---
Outpatient Therapy Plan of Care This is a Multidisciplinary Plan of Care that may contain components documented by all disciplines (PT, OT, and ST.) PT Problem 1 PT Problem #1 Knowledge Deficit PT Goal 1 Goal / Goal Update Pt to be independent in hardin daroff and/or habituation exercises to address dizziness. Target Visit 4 PT Problem 2 PT Problem #2 Impaired Vestibular System PT Goal 1 Goal / Goal Update Pt to be able to bend her neck forward and backward without dizziness. Pt to report no bouts of dizziness for the last 3 days. Pt to report DHI score of 10 or less. Target Visit 4
--- NOTE | 2024-12-17 17:51 | PTOPEVAL1 ---
Assessment and note entered by Sultana Amos, PT Evaluation Information Assessment Status Evaluation ICD-10 Condition Codes (PT) BPPV H81.12 Onset 12/07/24 Subjective Information See vestibular testing section. Reported Pain Level Pain Score 0: Self Report Assessment PT Clinical Summary Pt is a 53 yo female who enters the clinic with reports of vertigo that occurs when turning her head, bending forward and backward, and when standing up quickly. Cervical screen negative. During vestibular testing, no nystagmus observed with roll test or ayala hallpike however pt noted increased dizziness with L ayala hallpike. Following L terry pt noted reduction of symptoms. She will benefit from skilled PT to improve symptoms and return to normal functional and recreational activities symptom-free. Plan of Care Interventions Neuro Re-education,Patient/Caregiver Education, Therapeutic Exercise,Other Other Interventions DESIGN STUDIO CONSULTANT PT Services Indicated Yes Treatment Frequency and 1x/week for 4 visits Duration These treatments will address the objective and functional deficits as defined above. The patient will be advanced safely and appropriately in order for the patient to progress towards his/her prior level of function. Additional exercises will be introduced and as well as a comprehensive home exercise program upon discharge, if needed, ?to ensure carryover of functional gains achieved in the clinic. This treatment plan has been reviewed and agreement upon by the patient.
--- NOTE | 2025-01-17 16:45 | PTOPDC ---
Assessment and note entered by Sultana Amos, PT Evaluation Information Assessment Status Discharge - Pt Not Present ICD-10 Condition Codes (PT) BPPV H81.12 Onset 12/07/24 Subjective Information Pt was seen for initial eval on 12/17 for vertigo. An additional treatment session was scheduled but pt called and let us know she was no longer experiencing vertigo symptoms. Due to resolution of symptoms pt will be discharged from skilled PT this date. Assessment PT Clinical Summary Pt was seen for initial eval on 12/17 for vertigo. An additional treatment session was scheduled but pt called and let us know she was no longer experiencing vertigo symptoms. Due to resolution of symptoms pt will be discharged from skilled PT this date. Plan of Care PT Services Indicated No
== END 2024-12-17 20:00 | disposition home or self-care (01) ==
LOC: CHSPT 16:42
PROVIDERS: PCP Family Medicine; Visit Provider Family Medicine
DX: H81.12 Benign paroxysmal vertigo, left ear (principal)
CPT/HCPCS: 95992; 97161

== ENCOUNTER 2025-06-05 19:47 | Emergency (ER) | payer OTHER, SELFPAY ==
--- NOTE | ~2025-06-05 | XR_ITS ---
EXAM/PROCEDURE: XR lumbar spine 2-3V HISTORY: LOW BACK PAIN. HX OF FUSION. COMPARISON: November 08, 2024 TECHNIQUE: Lumbar spine x-rays FINDINGS: Posterior fusion L4-5 hardware appears stable. Degenerative changes throughout the lumbar spine. Mild right convex curvature of the spine. No gross acute or aggressive bony or soft tissue process seen. IMPRESSION: Stable appearing exam. For persisting back pain refractory to conservative therapy, correlation with lumbar spine MRI suggested for optimal sensitivity. NOTE: Preliminary radiologist interpretation provided by [facility] radiologist/physician. Reviewed, dictated and finalized at location A. TECHNICIAN IMPRESSION: Stable appearing exam. For persisting back pain refractory to conservative ther apy, correlation with lumbar spine MRI suggested for optimal sensitivity. NOTE: Preliminary radiologist interpretation provided by [facility] radiologist/adriana arce.
[2025-06-05 19:47] VITALS: BP 122/74; PULSE 76; RESP 16; TEMP 36.6; O2SAT 97
--- NOTE | 2025-06-05 19:50 | ED.BACK ---
HPI - Back Pain/Injury General Chief Complaint: Back Pain/Injury Stated Complaint: Back Pain Time Seen by Provider: 06/05/25 19:50 Source: patient Mode of arrival: ambulatory Limitations: no limitations History of Present Illness HPI Narrative: Patient is a 54-year-old female with chronic lower back pain having acute lower back pain after a chiropractic adjustment 7 days ago. She has been having a difficult week with acute pain on her chronic pain of the lumbar spine. She has a spinal fusion of L4-5 area. She sees chronic pain management. She is not drug-seeking. Some pain down the right buttocks to the upper thigh. No saddle anesthesia or urine or bowel changes. MD elicited complaint: back pain and back injury (Chiropractic adjustment 7 days ago to this area) Pertinent past history: prior back pain and recent trauma (Chiropractic adjustment to the area of pain and spinal fusion) Onset (ago): day(s) (Seven) Timing: constant Severity: moderate Pain scale (0-10): 7 Similar Symptoms Previously: Yes Quality: burning and sharp Location: lumbar spine Radiation: buttocks (On the right) Exacerbating factors: movement Relieving factors: immobilization Context: other (Patient has chronic pain of her lumbar spine at the fusion site L4-5 and the chiropractor did an adjustment to this area and she sustained pain since that time 7 days ago) Associated symptoms: denies other symptoms Treatments prior to arrival: prescription analgesics Related Data Home Medications ?Medication ?Instructions ?Recorded ?Confirmed ?Last Taken ?Type duloxetine 30 mg capsule,delayed 60 mg PO DAILY 06/19/20 07/23/23 06/25/20 08:00 History release tramadol 50 mg tablet See Rx Instructions .Route 06/19/20 07/23/23 06/25/20 08:00 History .COMPLEX PRN Pain gabapentin 600 mg tablet 600 mg PO TID 04/18/21 07/23/23 Unknown History hydrocodone 7.5 mg-acetaminophen 1 tablet PO TID 04/18/21 07/23/23 Unknown History 325 mg tablet cyclobenzaprine 10 mg tablet 10 mg PO PRN 07/23/23 07/23/23 Unknown History Allergies Allergy/AdvReac Type Severity Reaction Status Date / Time No Known Allergies Allergy Verified 12/02/22 08:33 Review of Systems Review of Systems: All systems reviewed & are unremarkable except as noted in HPI and below Constitutional: Constitutional: Reports no additional constitutional complaints Eyes: Eyes: Reports no additional eye complaints ENT: Reports system reviewed and no additional complaints, except as documented Cardiovascular: Cardiovascular: Reports no additional cardiovascular complaints Respiratory: Respiratory: Reports no additional respiratory complaints Gastrointestinal: Gastrointestinal: Reports no additional gastrointestinal complaints Genitourinary: Genitourinary: Reports no additional female genitourinary complaints Musculoskeletal: Musculoskeletal: Reports no additional musculoskeletal complaints Integumentary/Breasts: Skin/Breast: Reports system reviewed and no additional complaints, except as docu Neurologic: Reports system reviewed and no additional complaints, except as documented Psychiatric: Psychiatric: Reports no additional psychiatric complaints Endocrine: Endocrine: Reports no additional endocrine complaints Hematologic/Lymphatic: Hematologic/Lymphatic: Reports no additional hematologic/lymphatic complaints Allergic/Immunologic: Allergic/Immunologic: Reports no additional allergic/immunologic complaints PMFSH Past Medical History Medical History Pancreatitis Abdominal pain Pre-diabetes Obesity Depression Back pain Surgical History Surgical History Status post carpal tunnel release Previous back surgery spinal fusion 2018 Status post Status post tonsillectomy Social History Social History Smoking packs per day: 1 Smoking cigarettes per day: 20.0 Years smoked: 20 Smoking pack-years: 20.00 Smoking status: Former smoker Tobacco type: cigarettes Second hand tobacco smoke exposure: No Alcohol intake: never Drinks per week: 0 Alcohol use details: 2 TIMES PER YEAR Substance use: never Substance use type: does not use Lack of Transportation: No Lack of Food: Never True Current Housing: I Have Housing Concerned About Future Housing: No Difficulty Paying Gas/Electric Bills: No Difficulty Paying for Meds: No Currently Unemployed: No Education: High School Diploma/GED Difficulty w/ Childcare or Family Care: No Living arrangements: with family Spiritual care concerns: No Exam Const: General: healthy appearing Nutritional Appearance: well nourished Orientation/consciousness: patient oriented x3 Limitations: no limitations HENMT: Head: normal to inspection Ears: external ears normal Face/Nose/Sinus: Normal external nose present Eyes: Conjunctivae: conjunctivae normal Pupils: Equal, round and reactive pupils present EOM: EOMs intact bilaterally Neck: Neck: normal visual inspection Chest: Chest palpation & inspection: normal inspection of the chest Resp: Effort & Inspection: normal respiratory effort and not labored Auscultation: clear to auscultation bilaterally and no crackles Cardio: Rate: regular rate Rhythm: regular rhythm Heart sounds: no murmurs GI: Inspection: non-distended GI Palp: Yes Soft to palpation and No Tenderness to palpation present (GI) Auscultation: normal bowel sounds : General: Yes bladder normal to palpation Back/Spine/Pelvis: Back: no CVA tenderness Other: Tender lumbar spine midline L4-5 region and slightly to the right of the spine Skin: General skin exam: normal color Rashes: no rashes Wounds: no wounds Neuro: General: patient oriented x3, moves all extremities and no meningeal signs Extrem: General: normal to inspection, no clubbing, cyanosis or edema and no pedal edema Psych: Mental Status: mental status grossly normal Affect: normal affect Attitude: cooperative Course Vital Signs Vital signs: Vital Signs Temperature 36.6 C 06/05/25 19:47 Pulse Rate 76 06/05/25 19:47 Respiratory Rate 16 06/05/25 19:47 Blood Pressure 122/74 06/05/25 19:47 Pulse Oximetry 97 06/05/25 19:47 Oxygen Delivery Room Air 06/05/25 19:47 Temperature 36.2 C L 06/05/25 20:00 Pulse Rate 76 06/05/25 20:00 Respiratory Rate 15 06/05/25 20:00 Blood Pressure 122/74 06/05/25 20:00 Pulse Oximetry 100 06/05/25 20:00 Oxygen Delivery Room Air 06/05/25 20:00 MDM - Back Pain/Injury MDM Narrative Medical decision making narrative: Patient is a 54-year-old female with a lower back pain after an adjustment by chiropractor of acute on chronic pain. We will do Solu-Medrol and Toradol and x-rays. Imaging Data Attestation: I personally reviewed and interpreted this imaging study as follows: Radiologist's impression: X-ray lumbar spine is negative for acute process Discharge Plan Discharge Clinical Impression: Lumbago Qualifiers: Chronicity: acute Back pain laterality: right Sciatica presence: with sciatica Sciatica laterality: sciatica of right side Qualified Code(s): M54.41 - Lumbago with sciatica, right side Patient Disposition: Home Condition: Stable Instructions: Acute Low Back Pain (ED) Patient Language: [place] Prescriptions: New methylprednisolone [Medrol ([place])] 4 mg tablets,dose pack See Rx Instructions .ROUTE .COMPLEX Qty: 21 0RF Rx Instructions: orally per package directions No Action gabapentin 600 mg tablet 600 mg PO TID hydrocodone-acetaminophen 7.5-325 mg tablet 1 tablet PO TID pantoprazole 40 mg tablet,delayed release (DR/EC) 40 mg PO QAM 28 Days Qty: 28 0RF cyclobenzaprine 10 mg tablet 10 mg PO PRN tramadol 50 mg Tablet See Rx Instructions .ROUTE .COMPLEX PRN (Reason: Pain) Rx Instructions: 1 TO 2 TABLETS EVERY 8 TO 12 HOURS NEEDED duloxetine 30 mg capsule,delayed release(DR/EC) 60 mg PO DAILY Follow-up/Referrals: Kaleb Fernandez MD [Primary Care Provider, Internal Medicine] Time of Disposition: 21:58
[2025-06-05 20:00] VITALS: BP 122/74; PULSE 76; RESP 15; TEMP 36.2; O2SAT 100
--- OUTSIDE RECORDS SUMMARY | 2025-06-05 20:18 | XMS_ITS | Continuity of Care Document ---
Author Organization [facility] [place] Address [address] [place] [address] Care Team Providers Care Vessel Master Name Role Phone GREGORIA CONWAY Primary Care Provider [phone] Assessment No assessment recorded. Plan of Treatment Reminders Order Date Submit Date Provider Last Modified By Organization Details Last Modified Time Details Appointments MED CHECK 2024 09:30A M MAURO Anthony Not available Not available Not available Lab None recorded. Referral None recorded. Procedures None recorded. Surgeries None recorded. Imaging None recorded. Medication Orders progester one micronize d 100 mg capsule 2024 025 [facility] #[id number], [address] [place], [address], 03/11/2025 10:37:24 estradiol 0.01% (0.1 mg/gram) vaginal cream 2024 025 [facility]acy #[id number], [address] [place], [address], 03/11/2025 10:37:57 Patient TargetsNo targets recorded. Patient InstructionsNo instructions recorded. Reason for Referral None Reported. Problems Name Problem SNOMED Code Status Onset Date Resolution Date Notes Provider Name and Address Organization Details Recorded Time Primigra mari [id number] Completed 201103/28/2021 Supervisi on of normal first ;Practice ID: 0001 Dayana sams [facility] 17:11:58 Routine antenata l care Completed 201103/28/2021 Supervisi on of other normal ;Practice ID: 0001 Dayana Naylor [facility] 17:12:02 Prematur e rupture of membrane s with antenata l problem [id number] Completed 201103/28/2021 Premature rupture of membranes , antepartu m;Practic e ID: 0001 Dayana sams [facility] 17:11:56 Deliveri es by [id number] Completed 201103/28/2021 delivery, without mention of indicatio n, unspecifi ed as to episode of care;Huey rded Elsewhere : No Locati on: [facility] [address] So urce: EHR Chron ic: N Practic e ID: 0001 Bill able Time: 10:00:00 AM Dayana Naylor [facility] 17:11:38 Postpart um care Completed 201103/28/2021 Routine postpartu m follow-up ;Recorded Elsewhere : No Locati on: [facility] [address] So urce: EHR Chron ic: N Practic e ID: 0001 Bill able Time: 05:33:00 AM Dayana Naylor [facility] 17:11:52 Abdomina l pain [id number] Completed 201103/28/2021 Abdominal pain, other specified site;Huey rded Elsewhere : No Locati on: [facility] [address] So urce: EHR Chron ic: N Practic e ID: 0001 Bill able Time: 05:33:00 AM Dayana Naylor [facility] 17:11:29 Follow-u p risk drug assessme nt Completed 201103/28/2021 Follow-up examinati on following completed treatment with high-risk medicatio n, not elsewhere classifie d;Recorde d Elsewhere : No Locati on: [facility] [address] So urce: EHR Chron ic: N Practic e ID: 0001 Bill able Time: 11:00:00 AM Dayana Naylor [facility] 17:11:45 Insertio n of intraute rine contrace ptive device Completed 201103/28/2021 INSERTION OF IUD;Recor ded Elsewhere : No Locati on: [facility] [address] So urce: EHR Chron ic: N Practic e ID: 0001 Bill able Time: 08:00:00 AM Dayana Naylor [facility] 17:11:46 Pregnanc y test negative [id number] Completed 201103/28/2021 examinati on or test, negative result;Re corded Elsewhere : No Locati on: [facility] [address] So urce: EHR Chron ic: N Practic e ID: 0001 Bill able Time: 08:00:00 AM Dayana [facility] 17:11:54 Family planning surveill ance Completed 201103/28/2021 Contracep tive surveilla nce, unspecifi ed;Record ed Elsewhere : No Locati on: [facility] [address] So urce: EHR Chron ic: N Practic e ID: 0001 Bill able Time: 02:00:00 PM Dayana Naylor [facility] 17:11:42 Dysfunct ional uterine bleeding Completed 201203/28/2021 Other disorders of menstruat ion and other abnormal bleeding from female genital tract;Rec orded Elsewhere : No Locati on: [facility] [address] So urce: EHR Chron ic: N Practic e ID: 0001 Bill able Time: 10:45:00 AM Dayana Naylor [facility] 17:11:39 Screenin g for malignan t neoplasm of cervix Completed 201203/28/2021 Pap Smear;Pra ctice ID: 0001 Dayana Naylor [facility] 1 17:12:04 Screenin g for malignan t neoplasm of rectum Completed 201203/28/2021 Screening for malignant neoplasms of the rectum;Pr actice ID: 0001 Dayana Naylor [facility] 17:12:05 Speciali ailyn medical examinat ion Completed 201203/28/2021 Gynecolog ical Examinati on;Record ed Elsewhere : No Locati on: [facility] [address] So urce: EHR Chron ic: N Practic e ID: 0001 Bill able Time: 05:00:00 PM Dayana Naylor [facility] 17:12:10 Irregula r periods [id number] Completed 201303/28/2021 Irregular menstrual cycle;Rec orded Elsewhere : No Locati on: [facility] [address] So urce: EHR Chron ic: N Practic e ID: 0001 Bill able Time: 04:15:00 PM Dayana Naylor [facility] 17:11:48 Dysmenor jessica [id number] Completed 201303/28/2021 Dysmenorr hea;Recor ded Elsewhere : No Locati on: [facility] [address] So urce: EHR Chron ic: N Practic e ID: 0001 Bill able Time: 04:15:00 PM Dayana Naylor [facility] 17:11:40 Female genital organ symptoms [id number] Completed 201303/28/2021 Unspecifi ed symptom associate d with female genital organs;Re corded Elsewhere : No Locati on: [facility] [address] So urce: EHR Chron ic: N Practic e ID: 0001 Bill able Time: 09:15:00 AM Dayana Naylor [facility] 17:11:43 Breast cancer genetic marker of suscepti bility detected [id number] Completed 201303/28/2021 Genetic susceptib ility to malignant neoplasm of breast;Re corded Elsewhere : No Locati on: [facility] [address] So urce: EHR Chron ic: N Practic e ID: 0001 Bill able Time: 10:00:00 AM Dayana Naylor [facility] 17:11:36 Procedur e on genitour inary system Completed 201303/28/2021 Steriliza tion;Huey rded Elsewhere : No Locati on: [facility] [address] So urce: EHR Chron ic: N Practic e ID: 0001 Bill able Time: 10:00:00 AM Dayana Naylor [facility] 17:12:00 Postoper ative follow-u p visit Completed 201303/28/2021 Follow-up examinati on, following unspecifi ed surgery;R ecorded Elsewhere : No Locati on: [facility] [address] So urce: EHR Chron ic: N Practic e ID: 0001 Bill able Time: 10:00:00 AM Dayana Naylor [facility] 17:11:50 Amenorrh ea [id number] Completed 201403/28/2021 Amenorrhe a;Recorde d Elsewhere : No Locati on: [facility] [address] So urce: EHR Chron ic: N Practic e ID: 0001 Bill able Time: 09:00:00 AM Dayana Naylor [facility] 17:11:[address] Concept Completed 201503/28/2021 Encntr for general adult medical exam w/o abnormal findings; Recorded Elsewhere : No Locati on: [facility] [address] So urce: EHR Chron ic: N Practic e ID: 0001 Bill able Time: 02:00:00 PM Dayana Naylor [facility] 17:12:07 Acute vaginiti s [id number] Completed 201503/28/2021 Acute vaginitis ;Practice ID: 0001 Dayana Naylor [facility] 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 17:12:08 Body mass index 30+ - obesity [id number] Completed 201703/28/2021 Body mass index (BMI) 36.0-36.9 , adult;Rec orded Elsewhere : No Locati on: [facility] [address] So urce: EHR Chron ic: N Practic e ID: 0001 Bill able Time: 01:00:00 PM Dayana Dayday sams [facility] 17:11:34 Problem Notes None recorded. Procedures Surgical History Date Name Laterality Status Provider Name and Address Organization Details Recorded Time 10/16/19 25 Most Recent Bone Density completed [facility] 03/11/2025 10:11:21 06/16/20 24 Date of Last Mammogram completed [facility] 03/11/2025 10:11:21 03/04/20 24 Date of Last Pap Smear completed [facility] 03/11/2025 10:14:13 10/20/19 21 completed [facility] 03/29/2021 11:05:13 10/20/19 21 Date of Last Colonoscopy completed [facility] 03/29/2021 11:05:13 Caesarean Section completed Dayana Garner Shyam [facility] 03/29/2021 11:05:24 Orthopedic Surgery completed [facility] 08/26/2022 09:37:43 Other completed [facility] 08/26/2022 09:37:43 Cholecystectomy completed [facility] 08/26/2022 09:37:43 procedure on upper arm completed [facility] 03/08/2020 15:53:15 Tonsillectomy completed [facility] 03/08/2020 15:53:21 Tubal Ligation completed [facility] 03/08/2020 15:53:26 exploration of spinal fusion completed [facility] 03/08/2020 15:53:38 Imaging Results None recorded. Procedure Notes None recorded. Medical Equipment None Reported. Allergies No known drug allergies Medications Name Sig Start Date Stop Date Status Note LastModified by Organization Details LastModified Time Prometriu m 200 mg capsule take 1 capsule by oral route every day for 10 days in the evening 12/02 completed Prescrib ed Elsewher e: No [facility] odify By: roberto quispe DateTime : 11/22/19 15 10:08:06 AM Not Available Not Available Not [...] mg tablet TAKE 1 TABLET BY MOUTH 3 TIMES A DAY NEEDED active Not Available Not Available No t Available azithromy juany 250 mg tablet TAKE 2 TABLETS BY MOUTH TODAY, THEN TAKE 1 TABLET DAILY FOR 4 DAYS DIRECTED 03/11 completed Not Available Not Available Not Available benzonata te 200 mg capsule TAKE 1 CAPSULE BY MOUTH 3 TIMES A DAY 03/11 completed Not Available Not Available Not Available hydrocodo ne 5 mg-acetam inophen 325 mg tablet TAKE 1 TABLET BY MOUTH EVERY 6 HOURS NEEDED FOR SEVERE PAIN 03/11 completed Not Available Not Available Not Available Doc-Q-Lac e 100 mg capsule take 1 capsule by oral route every day at bedtime as needed 03/29 completed Prescrib ed Elsewher e: Yes Loca tion: Radha mckeon [facility] odify By: jasontaqueria Mckeon brittaney DateTime : 02/28/20 18 01:00:00 PM Not Available Not Available Not Available Motrin 600 mg tablet take 1 tablet by oral route 3 times every day with food 08/26 completed Prescrib ed Elsewher e: Yes Loca tion: Radha mckeon [facility] odify By: ginna robledo DateTime : 02/20/20 12 03:45:00 PM Not Available Not Available Not Available sulfameth oxazole 800 mg-trimet hoprim 160 mg tablet TAKE 1 TABLET BY MOUTH EVERY 12 HOURS FOR 7 DAYS 03/04 completed Not Available Not Available Not Available hydrocodo ne 10 mg-acetam inophen 325 mg tablet TAKE 1 TABLET BY MOUTH TWO TO THREE TIMES DAILY NEEDED - M54.17 RADICULO JUANCARLOS, LUMBAR REGION active Not Available Not Available No t Available peg-elect rolyte solution 420 gram oral solution MIX AND DRINK UTD 03/29 completed Not Available Not Available Not Available tramadol 50 mg tablet TAKE 2 TABLETS BY MOUTH TWO TO THREE TIMES DAILY NEEDED - M54.17 RADICULO [...] Elsewher e: Yes Loca tion: Radha mckeon [facility] odify By: montse robledo DateTime : 02/20/20 12 03:45:00 PM Not Available Not Available Not Available ketorolac 10 mg tablet TAKE 1 TABLET BY MOUTH EVERY 8 HOURS NEED FOR PAIN 08/26 completed Not Available Not Available Not Available amoxicill in 875 mg tablet take 1 tablet by oral route every 12 hours 06/09 completed Prescrib ed Elsewher e: Yes Loca tion: Rahda mckeon [facility] odify By: montse robledo DateTime : 02/20/20 12 03:45:00 PM Not Available Not Available Not Available Metrogel Vaginal 0.75 % (37.5 mg/5 gram) insert 1 applicat orful by vaginal route every day at bedtime 02/27 completed Prescrib ed Elsewher e: No [facility] odify By: neri quispe DateTime : 02/01/20 16 01:35:35 PM Not Available Not Available Not Available methocarb mimi 750 mg tablet TAKE 1 TABLET BY MOUTH TWICE A DAY NEEDED 03/04 completed Not Available Not Available Not Available Depo-Prov era 150 mg/mL intramusc ular suspensio n inject 1 millilit er (150MG) by intramus cular route every 3 months 11/17 completed Prescrib ed Elsewher e: No Locat ion: [facility] odify By: neri quispe DateTime : 08/27/19 13 10:45:00 AM Not Available Not Available Not Available meclizine 25 mg tablet TAKE 1 TABLET BY MOUTH THREE TIMES A DAY NEEDED 03/11 completed Not Available Not Available Not Available [...] completed Not Available Not Available Not Available estradiol 0.01% (0.1 mg/gram) vaginal cream INSERT 1G VAGINALL Y AT BEDTIME 2-3 TIMES PER WEEK AT BEDTIME active Not Available Not Available No t Available methylpre dnisolone 4 mg tablets in a dose pack TAKE 6 TABLETS ON DAY 1 DIRECTED ON PACKAGE AND DECREASE BY 1 TAB EACH DAY FOR A TOTAL OF 6 DAYS 03/11 completed Not Available Not Available Not Available albuterol sulfate HFA 90 mcg/actua tion aerosol inhaler TAKE 2 PUFFS BY MOUTH EVERY 4 TO 6 HOURS NEEDED 03/11 completed Not Available Not Available Not Available Percocet 5 mg-325 mg tablet take 1 tablet by oral route every 6 hours as needed 03/29 completed Prescrib ed Elsewher e: Yes Loca tion: Radha mckeon [facility] odify By: neri delciduntlay DateTime : 02/28/20 18 01:00:00 PM Not Available Not Available Not Available Terazol 7 0.4 % vaginal cream insert 1 applicat orful by vaginal route every day for 7 days at bedtime 02/11 completed Prescrib ed Elsewher e: No Locat ion: Radha mckeon [facility] odify By: shae delciduntlay DateTime : 02/06/20 16 01:43:57 PM Not Available Not Available Not Available naproxen 500 mg tablet TAKE 1 TABLET BY MOUTH TWICE A DAY WITH FOOD 03/11 completed Not Available Not Available Not Available progester one micronize d 100 mg capsule TAKE 1 CAPSULE BY MOUTH EVERYDAY AT BEDTIME active Not Available Not Available No t Available amoxicill in 875 mg-potass ium clavulana te 125 mg tablet TK 1 T PO Q 12 HOURS 03/28 completed Not Available Not Available Not Available Colace 50 mg capsule take 1 capsule by oral route every day at bedtime as needed 08/27 completed Prescrib ed Elsewher e: Yes Loca tion: Radha mckeon [facility] odify By: montse robledo DateTime : 01/23/20 12 10:15:00 AM Not Available Not Available Not Available Vitamin 27 mg iron-0.8 mg tablet take 1 tablet by oral route every day 06/09 completed Prescrib ed Elsewher e: Yes Loca tion: Radha mckeon [facility] odify By: montse robledo DateTime : 01/23/20 12 10:15:00 AM Not Available Not Available Not Available Denta 5000 Plus 1.1 % cream BRUSH AT NIGHT AFTER DINNER AND SPIT OUT. DO NOT RINSE UNTIL MORNING active Not Available Not Available No t Available NuvaRing 0.12 mg-0.015 mg/24 hr vaginal insert 1 vaginal ring by vaginal route every month leave in place for 3 weeks, remove for 1 week 11/17 completed Prescrib ed Elsewher e: No [facility] By: neri quispe DateTime : 08/31/19 14 04:15:00 PM Not [...] completed Not Available Not Available Not Available multivita min active Not Available Not Available Not Available varenicli [...] ed Elsewher e: Yes [facility] By: neri quispe DateTime : 02/28/20 18 01:00:00 PM Not Available Not Available Not Available Amitiza 03/28 completed Not Available Not Available Not Available Amitiza 8 mcg capsule take 1 capsule by oral route 2 times every day with food and water 03/29 completed Prescrib ed Elsewher e: Yes [facility]oca [facility] odify By: neri quispe DateTime : 02/28/20 18 01:00:00 PM Not Available Not Available Not Available Vitamin D3 125 mcg (5,000 unit) tablet take 2 by Oral route 4 times every week 03/29 completed Prescrib diana Cooley e: Yes Loca tion: Rad[facility] odify By: neri quispe DateTime : 02/28/20 01:00:00 PM Not Available Not Available Not Available EC-Naprox en 08/26 completed Not Available Not Available Not Available Ozempic 1 mg/dose (4 mg/3 mL) subcutane ous pen injector INJECT 1 MG SUBCUTAN EOUSLY ONCE WEEKLY ON SAME DAY OF EACH WEEK active Not Available Not Available No t Available Paxlovid 300 mg (150 mg x 2)-100 mg tablets in a dose pack PLEASE SEE ATTACHED FOR DETAILED DIRECTIO NS 08/26 completed Not Available Not Available Not Available Ozempic 0.25 mg or 0.5 mg (2 mg/3 mL) subcutane ous pen injector INJECT 0.5 MG SUBCUTAN EOUSLY ONE TIME PER WEEK ON THE SAME DAY OF EACH WEEK 03/11 completed Not Available Not Available Not Available Vitals Date Recorded Body height Body mass index (BMI) Body weight Systolic And Diastolic Provider Name and Address Organization Details Last Updated DateTime 03/11/2025 176.53 cm 36.1 kg/m2 201263.91 g 133/84 mm[Hg] Carri Cutlerney [facility] 03/11/2025 10:11:06 Social History Question Answer Notes LastModified by Organizat ion Details LastModified Time Tobacco Smoking Status Never Smoker Dayana Vilma sams [facility] 08/26/2022 09:37:40 Do You Have An Advance Directive? No Information n ot available 03/29/2021 How Many Years Have You Consumed Alcohol? 30 Information not available 03/29/2021 Are You Blind Or Do You Have Difficulty Seeing? No Information n ot available 03/29/2021 What Is Your Level Of Caffeine Consumption? Occasional Information not available 03/29/2021 How Much Tobacco Do You Chew? None Information not available 08/26/2022 In The 14 Days Before Symptom Onset, Have You Had Close Contact With A Laboratory-confirm ed COVID-19 While That Case Was Ill? No Information n ot available 08/26/2022 In The 14 Days Before [...] Of Diet Are You Following? REGULAR Information n ot available 08/26/2022 What Is The Highest Grade Or Level Of School You Have Completed Or The Highest Degree You Have Received? [id number] Information not available 03/29/2021 Are There Any [...] 03/29/2021 How Much Tobacco Do You Smoke? 0.5 PPD [email or web address] Information not available 03/11/2025 Do You Use Sunscreen Routinely? Yes Information not available 03/29/2021 How Many Years Have You Smoked Tobacco? 40 [email or web address] Information not available 03/11/2025 Have You Used IV Drugs? No Information not available 08/26/2022 Do You Have Difficulty Walking Or Climbing Stairs? No Information not available 08/26/2022 Sex: Unknown Functional Status Question Answer Note LastModified by Organizat ion Details LastModified Time Do you use any illicit or recreational drugs? No Information not available 08/26/2022 What is your level of alcohol consumption? Occasional Information not available 03/29/2021 Are you able to walk independently without assistance or assistive devices? YESWOREST Information not available 03/29/2021 Are you able to care for yourself independently? 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 No Information not available 08/26/2022 What is your exercise level? Occasional Information not available 03/29/2021 Mental Status Question Answer Note LastModified by Organization D etails LastModified Time Do you feel stressed (tense, restless, nervous, or anxious, or unable to sleep at night)? [id number] Information not available 08/26/2022 Family History Relationship Description Onset Age of this Age Resolved Age Notes LastModified by Organization Details LastModified Time Maternal Grandmother Carcinoma in situ of breast [email or web address] Not available 02/19 09:32:19 Maternal Grandmother Malignant neoplasm of breast Not available 2022 09:37:29 Mother Carcinoma in situ of breast [email or web address] Not available 02/19 09:32:19 Mother Malignant neoplasm of lung suspected [email or web address] Not available 02/19 09:32:19 Mother Malignant neoplasm of breast Not available 2022 09:37:29 Father Diabetes mellitus [email or web address] Not available 2019 15:52:33 Maternal Grandfather Malignant neoplasm of lung suspected [email or web address] Not available 02/19 09:32:19 Unspecified Relation Malignant neoplasm of breast Not available 2022 09:37:29 Sister Malignant neoplasm of breast Not available 2022 09:37:29 Paternal Grandmother Malignant neoplasm of breast Not available 2022 09:37:29 Medical History Condition Response Diabetes Y Arthritis Y Depression/ depression Y Gynecological History Statement/Question Response Date of Last Mammogram 06/16/2024 Date of LMP 05/21/2016 On BCP's at Conception? N N Was last menstrual period normal Y STIs/STDs N HPV Vaccine N Current Control Method Menopause Age at First Child 23 If Post Menopausal, Age at Menopause 45 Date of Last Colonoscopy 10/19/2020 Most Recent Bone Density 10/15/2024 Sexually Active? N Age of first menstrual cycle 13 Date of Last Pap Smear 03/04/2024 Sexual Problems? N LMP Approximate 10/19/2020 N Obstetrics History GPAL:G 10 P 3 0 7 3 Type Value Full Term 3 Induced 6 Spontaneous 1 Living 3 Total 10 Past Encounters Encounter ID Performer Location Encounter Start Date Encounter Closed Date Diagnosis/Indication Diagnosis SNOMED-CT Code Diagnosis ICD10 Code Diagnosis IMO Codes Diagnosis Note [id number] MAURO Anthony [place] [address] [address] 03/11/2025 09:32:04 03/14/2025 11:00:55 Menopausal symptom 84888152 N95.1 241017 Today we discussed menopause and associated symptomsma nagement options reviewed (pharmacol ogic and lifestyle modificati ons)opts to start nightly progestero ne, rx sent, r/b/a reviewedMe d check in 3-4 months recconside r sleep study/PCP as well Vaginal dryness 69964683 N89.8 524405 rx vaginal estradiol creamveg based moisturize r routine discussedv ulvar care guidelines reviewed Time spent in visit is a total of 30 mins with at least 50% of visit consisting of counseling and review of plan of care. 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 For vaginal bleeding, patient reportshistory of menopause having occurredandno history of post menopausal bleeding. For urinary symptoms, patient reportsno hematuria,no incontinence,no nocturia, andno urinary frequency. For vulva, patient reportsno genital lesionandno vulvar atrophy. For vagina, patient reportsnormal vaginal dischargeandno vaginal atrophy.Breast symptomsFor breast, patient reportsno breast lump,no nipple discharge, andno breast pain.Psychological symptomsFor sexual complaints, patient reportsno sexual complaints. For psychological symptoms, patient reportsno depressionandno anxiety.Preventative measuresFor preventive measures, patient reportsencourage regular mammograms starting age 40,encourage self breast examination, andencourage regular exercise.54yopostmenopaus allast pap 02/2024 nilm, HPV (-)mammogram olonoscopy 2020 insomnia, night sweats, fatigue x 5 yrsoccasional day time hot flashes MAURO Anthony [address], [place], [id number], [facility] 03/14/2025 10:56:59 OBGyn Episode No OBEpisode recorded.
--- OUTSIDE RECORDS SUMMARY | 2025-06-05 20:18 | XMS_ITS | Data Portability ---
Author Organization [facility] Address [address] [place] [address] Care Team Providers Care Rfid Systems Engineer Name Role Phone ZORAIDA GREGORIA Primary Care Provider [phone] Assessment Encounter Date Assessment Date Assessment LastModified [...] Time Details Appointments MED CHECK 2024 09:30A MAURO Ruiz Not available Not available Not available Lab None recorded. Referral None recorded. Procedures None recorded. Surgeries None recorded. Imaging MAMMO, screening , digital, bilateral [address] [facility], [address], [place], [address], 09/12/2024 05:00:57 Medication Orders progester one micronize d 100 mg capsule [address] [facility] #[id number], [address] [place], [address], 03/11/2025 10:37:24 estradiol 0.01% (0.1 mg/gram) vaginal cream [address] [facility] #[id number], [address] [place], [address], 03/11/2025 10:37:57 Patient TargetsNo targets recorded. Patient InstructionsNo instructions recorded. Reason for Referral None Reported. Results Created Date Observation Date Name Description Value Unit Range Abnormal Flag Note LastModifiedBy Organization Detail LastModifiedTime 03/29/20 21 03/29/2021 IMAGE GUIDE D PAP AND HPV REGAR DLESS image guided Pap, HPV regardless of Pap result SEE RESULT S BELOW CASE REPOR T: Cytol ogy Gynec ologi sussy Repor t Case: [id number] Autho yousif chandra Provi brannon: Jose Gomes Colle cted: 03/29 1156 SPICE GRINDER Order ing Locat ion: [place] Patho [place] Recei mega: 03/30 0002 First Scree n: Domingo Ferris CT Speci men: Alicia nicole Pap - Image d, Cervi x STATE MENT OF ADEQU ACY: Satis facto ry for evalu ation Trans forma tion zone compo nent prese nt FINAL DIAGN OSIS: Negat joanne for Intra epith elial Gianfranco powell or Michaelle monroy (NIL) Elect matty he [...] is recom ginette d, as clini bassem warra nted. Not Available [facility] (Lab) [address], [place], [address], 04/02/2021 13:57:26 08/26/19 23 08/26/2022 IMAGE GUIDE D PAP AND HPV REGAR DLESS image guided Pap, HPV regardless of Pap result SEE RESULT S BELOW CASE REPOR T: Cytol ogy Gynec ologi sussy Repor t Case: [id number] Autho yousif chandra Provi brannon: Jose Gomes Colle cted: 08/26 1506 SPICE GRINDER Order ing Locat ion: [place] Patho logjennifer Recei mega: 08/27 0306 First Scree n: Mor rea, Carlos Alberto olson, CT Speci men: Scree bonnie Pap - [...] [facility] (Lab) [address], [place], [address], 08/28/2022 12:18:00 03/04/20 24 03/04/2024 IMAGE GUIDE D PAP AND HPV REGAR DLESS image guided Pap, HPV regardless of Pap result SEE RESULT S BELOW CASE REPOR T: Cytol ogy Gynec ologi sussy Repor t Case: [id number] Autho javadsherry g Provi brannon: Alicja Phelps MD Colle cted: 03/04 1451 Order ing Locat ion: [place] Patho logy Recei mega: 03/05 0746 First Scree n: Roxane Gomez ret, CT Rescr een: Mary Clinton, CT Speci men: Scree bonnie Pap - Image d, Cervi x STATE MENT OF ADEQU ACY: Satis facto ry for evalu ation Trans forma tion zone compo nent prese nt ----- ----- ----- ----- ----- ----- ----- ----- ----- ----- ----- ----- ----- ----- ----- ----- ----- ---- FINAL DIAGN OSIS: Negat joanne for Intra epith elial Gianfranco n or Michaelle monroy (NIL) . Víctor he zoila d by Mary Clinton, CT on 2023 [...] er inves tigat ion is recom ginette zaragoza, as ferozi bassem mariano nted. Not Available [facility] (Lab) [address], [place], [address], 03/11/2024 13:03:28 04/05/20 21 MAMMO , scree bonnie, bilat eral No observ ation record ed. [facility] [address], [place], [address], 04/09/2021 16:47:21 Result Notes None recorded. Problems Name Problem SNOMED Code Status Onset Date Resolution Date Notes Provider Name and Address Organization Details Recorded Time Primigra mari [id number] Completed 201103/28/2021 Supervisi on of normal first ;Practice ID: 0001 Dayana [facility]aylor [facility] 17:11:58 Routine antenata l care Completed 201103/28/2021 Supervisi on of other normal ;Practice ID: 0001 Dayana [facility] 17:12:02 Prematur e rupture of membrane s with antenata l problem [id number] Completed 201103/28/2021 Premature rupture of membranes , antepartu m;Practic e ID: 0001 Dayana [facility] 17:11:56 Deliveri es by [id number] Completed 201103/28/2021 delivery, without mention of indicatio n, unspecifi ed as to episode of care;Huey rded Elsewhere : No Locati on: [facility] So urce: EHR Chron ic: N Practic e ID: 0001 Bill able Time: 10:00:00 AM Dayana [facility] 17:11:38 Postpart um care Completed 201103/28/2021 Routine postpartu m follow-up ;Recorded Elsewhere : No Locati on: [facility] So urce: EHR Chron ic: N Practic e ID: 0001 Bill able Time: 05:33:00 AM Dayana Naylor [facility] 17:11:52 Abdomina l pain [id number] Completed 201103/28/2021 Abdominal pain, other specified site;Huey rded Elsewhere : No Locati on: [facility] So urce: EHR Chron ic: N Practic e ID: 0001 Bill able Time: 05:33:00 AM Dayana sams [facility] 17:11:29 Follow-u p risk drug assessme nt Completed 201103/28/2021 Follow-up examinati on following completed treatment with high-risk medicatio n, not elsewhere classifie d;Recorde d Elsewhere : No Locati on: [facility] So urce: EHR Chron ic: N Practic e ID: 0001 Bill able Time: 11:00:00 AM Dayana [facility] 17:11:45 Insertio n of intraute rine contrace ptive device Completed 201103/28/2021 INSERTION OF IUD;Recor ded Elsewhere : No Locati on: [facility] So urce: EHR Chron ic: N Practic e ID: 0001 Bill able Time: 08:00:00 AM Dayana Naylor [facility] 17:11:46 Pregnanc y test negative [id number] Completed 201103/28/2021 examinati on or test, negative result;Re corded Elsewhere : No Locati on: [facility] So urce: EHR Chron ic: N Practic e ID: 0001 Bill able Time: 08:00:00 AM [facility]ana [facility] 17:11:54 Family planning surveill ance Completed 201103/28/2021 Contracep tive surveilla nce, unspecifi ed;Record ed Elsewhere : No Locati on: [facility] So urce: EHR Chron ic: N Practic e ID: 0001 Bill able Time: 02:00:00 PM [facility]ana [facility] 17:11:42 Dysfunct ional uterine bleeding Completed 201203/28/2021 Other disorders of menstruat ion and other abnormal bleeding from female genital tract;Rec orded Elsewhere : No Locati on: [facility] So urce: EHR Chron ic: N Practic e ID: 0001 Bill able Time: 10:45:00 AM Dayana [facility] 17:11:39 Screenin g for malignan t neoplasm of cervix Completed 201203/28/2021 Pap Smear;Pra ctice ID: 0001 Dayana [facility] 17:12:04 Screenin g for malignan t neoplasm of rectum Completed 201203/28/2021 Screening for malignant neoplasms of the rectum;Pr actice ID: 0001 [facility]ana [facility] 17:12:05 Speciali phild medical examinat ion Completed 201203/28/2021 Gynecolog ical Examinati on;Record ed Elsewhere : No Locati on: [facility] So urce: EHR Chron ic: N Practic e ID: 0001 Bill able Time: 05:00:00 PM [facility]ana [facility] 17:12:10 Irregula r periods [id number] Completed 201303/28/2021 Irregular menstrual cycle;Rec orded Elsewhere : No Locati on: [facility] So urce: EHR Chron ic: N Practic e ID: 0001 Bill able Time: 04:15:00 PM [facility]ana [facility] 17:11:48 Dysmenor jessica [id number] Completed 201303/28/2021 Dysmenorr hea;Recor ded Elsewhere : No Locati on: [facility] So urce: EHR Chron ic: N Practic e ID: 0001 Bill able Time: 04:15:00 PM Dayana Naylor [facility] 17:11:40 Female genital organ symptoms [id number] Completed 201303/28/2021 Unspecifi ed symptom associate d with female genital organs;Re corded Elsewhere : No Locati on: [facility] So urce: EHR Chron ic: N Practic e ID: 0001 Bill able Time: 09:15:00 AM Dayana Naylor [facility] 17:11:43 Breast cancer genetic marker of milton muller detected [id number] Completed 201303/28/2021 Genetic susceptib ility to malignant neoplasm of breast;Re corded Elsewhere : No Locati on: [facility] So urce: EHR Chron ic: N Practic e ID: 0001 Bill able Time: 10:00:00 AM Dayana [facility] 17:11:36 Procedur e on genitour inary system Completed 201303/28/2021 Steriliza tion;Huey rded Elsewhere : No Locati on: [facility] So urce: EHR Chron ic: N Practic e ID: 0001 Bill able Time: 10:00:00 AM Dayana [facility] 17:12:00 Postoper ative follow-u p visit Completed 201303/28/2021 Follow-up examinati on, following unspecifi ed surgery;R ecorded Elsewhere : No Locati on: [facility] So urce: EHR Chron ic: N Practic e ID: 0001 Bill able Time: 10:00:00 AM Dayana Naylor [facility] 17:11:50 Amenorrh ea [id number] Completed 201403/28/2021 Amenorrhe a;Recorde d Elsewhere : No Locati on: [facility] So urce: EHR Chron ic: N Practic e ID: 0001 Bill able Time: 09:00:00 AM Dayana sams [facility] 17:11:[address] Concept Completed 201503/28/2021 Encntr for general adult medical exam w/o abnormal findings; Recorded Elsewhere : No Locati on: [facility] So urce: EHR Chron ic: N Practic e ID: 0001 Bill able Time: 02:00:00 PM Dayana sams [facility] 17:12:07 Acute vaginiti s [id number] Completed 201503/28/2021 Acute vaginitis ;Practice ID: 0001 Dayana Naylor [facility] 17:11:[address] Concept Completed 201703/28/2021 Encntr for claims account specialist exam (general) (routine) w/o abn findings; Practice ID: 0001 Dayana Naylor [facility] 17:12:08 Body mass index 30+ - obesity 669006644 Completed 201703/28/2021 Body mass index (BMI) 36.0-36.9 , adult;Rec orded Elsewhere : No Locati on: [facility] So urce: EHR Chron ic: N Practic e ID: 0001 Bill able Time: 01:00:00 PM Dayana Naylor [facility] 17:11:34 Problem Notes None recorded. Procedures Surgical History Date Name Laterality Status Provider Name and Address Organization Details Recorded Time 10/16/19 25 Most Recent Bone Density completed [facility] 03/11/2025 10:11:21 06/16/20 24 Date of Last Mammogram completed [facility] 03/11/2025 10:11:21 03/04/20 24 Date of Last Pap Smear completed [facility] 03/11/2025 10:14:13 10/20/19 21 completed [facility] 03/29/2021 11:05:13 10/20/19 21 Date of Last Colonoscopy completed [facility] 03/29/2021 11:05:13 Caesarean Section completed [facility] 03/29/2021 11:05:24 Orthopedic Surgery completed [facility] 08/26/2022 09:37:43 Other completed [facility] 08/26/2022 09:37:43 Cholecystectomy completed [facility] 08/26/2022 09:37:43 procedure on upper arm completed [facility] 03/08/2020 15:53:15 Tonsillectomy completed [facility] 03/08/2020 15:53:21 Tubal Ligation completed [facility] 03/08/2020 15:53:26 exploration of spinal fusion completed [facility] 03/08/2020 15:53:38 Imaging Results None recorded. Procedure Notes None recorded. Medical Equipment None Reported. Allergies No known drug allergies Medications Name Sig Start Date Stop Date Status Note LastModified by Organization Details LastModified Time Prometriu m 200 mg capsule take 1 capsule by oral route every day for 10 days in the evening 12/02 completed Prescrib diana Cooley e: No Locat ion: Radha mckeon [facility] odify By: roberto quispe DateTime : [...] Prescrib ed Elsewher e: Yes Loca tion: [facility] odify By: neri delcidunter DateTime : 02/28/20 18 01:00:00 PM Not Available Not Available Not Available Motrin 600 mg tablet take 1 tablet by oral route 3 times every day with food 08/26 completed Prescrib ed Elsewher e: Yes Loca tion: [facility] odify By: ginna robledo DateTime : [...] Prescrib ed Elsewher e: Yes Loca tion: Fideliakingsleyneelam mckeon [facility] odify By: montse robledo DateTime : [...] ed Elsewher e: Yes Loca tion: [facility] odify By: montse robledo DateTime : 02/20/20 12 03:45:00 PM Not Available Not Available Not Available Metrogel Vaginal 0.75 % (37.5 mg/5 gram) insert 1 applicat orful by vaginal route every day at bedtime 02/27 completed Prescrib ed Elsewher e: No Locat ion: [facility] odify By: neri delciduntlay DateTime : 02/01/20 16 01:35:35 PM Not Available Not Available Not Available methocarb mimi 750 mg tablet TAKE 1 TABLET BY MOUTH TWICE A DAY NEEDED 03/04 completed Not Available Not Available Not Available Depo-Prov era 150 mg/mL intramusc ular suspensio n inject 1 millilit er (150MG) by intramus cular route every 3 months 11/17 completed Prescrib ed Elsewher e: No Locat ion: [facility] odify By: neri Mckeon ncounter DateTime : 08/27/19 13 10:45:00 [...] Prescrib ed Elsewher e: Yes Loca tion: [facility] odify By: amrandy Mckeon ncounter DateTime : 02/28/20 18 01:00:00 PM Not Available Not Available Not Available Terazol 7 0.4 % vaginal cream insert 1 applicat orful by vaginal route every day for 7 days at bedtime 02/11 completed Prescrib ed Elsewher e: No [facility] odify By: shae Mckeon ncounter DateTime : 02/06/20 16 01:43:57 PM Not [...] Elsewher e: Yes Loca tion: Radha mckeon [facility] odify By: montse robledo DateTime : 01/23/20 12 10:15:00 AM Not Available Not Available Not Available Vitamin 27 mg iron-0.8 mg tablet take 1 tablet by oral route every day 06/09 completed Prescrib ed Elsewher e: Yes Loca tion: [facility] odify By: montse robledo DateTime [...] Prescrib ed Elsewher e: No Locat ion: Trung leonor [facility] odify By: amkuhl Leonor ncountlay DateTime : 08/31/19 14 04:15:00 PM Not [...] Prescrib ed Elsewher e: Yes Loca tion: [facility] odify By: neri delcidunter DateTime : 02/28/20 18 01:00:00 PM Not Available Not Available Not Available Amitiza 03/28 completed Not Available Not Available Not Available Amitiza 8 mcg capsule take 1 capsule by oral route 2 times every day with food and water 03/29 completed Prescrib ed Elsewher e: Yes Loca tion: [facility] odify By: neri Mckeon ncounter DateTime : 02/28/20 18 01:00:00 PM Not Available Not Available Not Available Vitamin D3 125 mcg (5,000 unit) tablet take 2 by Oral route 4 times every week 03/29 completed Prescrib ed Elsewher e: Yes Loca tion: [facility] odify By: neri Mckeon ncounter DateTime : 02/28/20 18 01:00:00 PM Not [...] Not Available Not Available Vitals Date Recorded Systolic And Diastolic Provider Name and Address Organization Details Last Updated DateTime 08/26/2022 122/72 mm[Hg] Colleen Cerda -BC [address], [place], [address], [facility] 08/26/2022 09:47:17 Date Recorded Body weight Provider Name an d Address Organization Details Last Updated DateTime 08/26/2022 056718.77 g Dayana Esparza [facility] 08/26/2022 09:37:07 Date Recorded Body height Body mass index (BMI) Body weight Systolic And Diastolic Provider Name and Address Organization Details Last Updated DateTime 03/04/2024 176.53 cm 35.5 kg/m2 841544.26 g 129/76 mm[Hg] Alaina Wolf [facility] 03/04/2024 14:18:01 Date Recorded Body height Body mass index (BMI) Body weight Systolic And Diastolic Provider Name and Address Organization Details Last Updated DateTime 03/11/2025 176.53 cm 36.1 kg/m2 817456.91 g 133/84 mm[Hg] Carri Alisson [facility] 03/11/2025 10:11:06 Date Recorded Body height Body mass index (BMI) Body weight Systolic And Diastolic Provider Name and Address Organization Details Last Updated DateTime 03/29/2021 176.53 cm 36 kg/m2 345079.32 g 112/79 mm[Hg] Dayana Naylor [facility] 03/29/2021 11:04:53 Social History Question Answer Notes LastModified by Organizat ion Details LastModified Time Tobacco Smoking Status Never Smoker Dayana Esparza null, [facility] 08/26/2022 09:37:40 Do You Have [...] Or The Highest Degree You Have Received? [id number] Information not available 03/29/2021 Are There Any [...] Much Tobacco Do You Smoke? 0.5 PPD [email or web address] Information not available 03/11/2025 Do You Use Sunscreen Routinely? Yes Information not available 03/29/2021 How Many Years Have You Smoked Tobacco? 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 No Information not available 08/26/2022 What is your exercise level? Occasional Information not available 03/29/2021 Mental Status Question Answer Note LastModified by Organization D etails LastModified Time Do you feel stressed (tense, restless, nervous, or anxious, or unable to sleep at night)? [id number] Information not available 08/26/2022 Family History Relationship [...] ICD10 Code Diagnosis IMO Codes Diagnosis Note [id number] Colleen Cerda [facility] [address] [address] 03/29/2021 10:30:55 03/29/2021 12:12:53 Gynecologic examination 03697187 Z01.419 Take Calcium with Vitamin D 12-1500mg daily. Do monthly self breast exams. It is advised to get annual flu shot in the fall and she could obtain at [facility] or [facility]. If you haven't received the Tdap vaccine [...] UTD 2020Dexa-w ill consider within next 2-3yrs. [id number] [facility] [address],[facility] [place] [address] 08/26/2022 09:23:40 08/26/2022 10:11:39 Gynecologic examination 14756944 Z01.419 Z11.51 Take Calcium with Vitamin D 12-1500mg daily. Do monthly self breast exams. It is advised to get annual flu shot in the fall and she could obtain at [facility] or [facility] clinic. If you haven't received the Tdap [...] Screen PCP Routine Labs PCPMammo ordered PCP [id number] YECENIA ROE MD [place] [address] [address] 03/04/2024 13:50:43 03/08/2024 09:57:35 Screening mammography 02974526 Z12.31 - small pea sized lump in left breast, new per patient- confirmed presence of small mass, mobile, nontender- will send order for mammogram Gynecologi c examination 59337323 Z01.419 [facility]- Cervical cancer screening: Pap smear obtained today, will follow up on the results with the patient as they become available- Breast cancer screening: mammogram ordered- HPV immunizati on: does not qualify- STD testing: declined- hereditary cancer screening: does not qualify for testing [id number] MAURO Anthony [place] [address] [address] 03/11/2025 09:32:04 03/14/2025 11:00:55 Menopausal symptom 95304714 N95.1 204309 Today we discussed menopause and associated symptomsma nagement options reviewed (pharmacol ogic and lifestyle modificati ons)opts to start nightly progestero ne, rx sent, r/b/a reviewedMe d check in 3-4 months recconside r sleep study/PCP as well Vaginal dryness 61042218 N89.8 [id number] rx vaginal estradiol creamveg based moisturize r [...] None Recorded Advance Directives Directive N: Payers Insurance Date Sequence Insurance Name Policy Number Policy Garcia Covered Member ID Garcia Member ID Guarantor Name 03/10/2025 2 [employer] (EPO) [id number] Deana Hannah [id number] Deana Hannah 03/10/2025 1 [facility] [id number] Deana Hannah [id number] Deana Hannah 03/10/2025 1 [employer] (EPO) [id number] Deana Hannah [id number] Deana Hannah Notes Date Note Type Note Provider Name and Address Organization Details Recorded Time 1 text/html Annual Maxillofacial Pathology Post-MenopausalReported by PatientGenitourinary symptomsFor menopausal symptoms, patient reportsno menopausal symptomsandnormal vaginal lubrication. For vaginal bleeding, patient reportshistory [...] regular mammograms starting age 40,encourage self breast examination,encourage regular exercise,encourage no tobacco use,mammogram performed within the past year, andhistory of recent colonoscopy. Colleen Cerda, TALISHA- [address], [place], [address], [facility] 03/29/2021 11:33:05 3 text/html Annual Maxillofacial Pathology Post-MenopausalReported by PatientGenitourinary symptomsFor menopausal symptoms, patient reportsno menopausal symptomsandnormal vaginal lubrication. For vaginal bleeding, patient reportshistory [...] regular mammograms starting age 40,encourage self breast examination,encourage regular exercise,encourage no tobacco use,needs to schedule mammogram, andhistory of recent colonoscopy. Colleen Cerda, [facility]- [address], [place], [address], [facility] 08/26/2022 09:58:20 4 text/html Presents today for her annual well-woman exam. Denies abnormal vaginal discharge. She is sexually active and denies dyspareunia. She noticed a small lump in her medial left breast. Not painful, not enlarging, first noticed 2 weeks ago. Menopausal, no PMB. YECENIA ROE MD [address], [place], [address], [facility] 03/07/2024 23:34:22 5 text/html Annual Maxillofacial Pathology Post-MenopausalReported by PatientGenitourinary symptomsFor menopausal symptoms, patient [...] hot flashes MAURO Anthony [address], [place], [address], [facility] 03/14/2025 10:56:59 OBGyn Episode No OBEpisode recorded.
[2025-06-05] MEDS: KETOROLAC (*BKC) 60 MG/2 ML VIAL IM (20:37)
--- NOTE | 2025-06-05 20:44 | PC.NURSE ---
PATIENT TRANSPORTED TO RADIOLOGY VIA STRETCHER
[2025-06-05 22:23] VITALS: BP 126/80; PULSE 74; RESP 16; O2SAT 100
== END 2025-06-05 22:23 | disposition home or self-care (01) ==
PROVIDERS: Emergency Provider Emergency Medicine; PCP Family Medicine
DX: M54.41 Lumbago with sciatica, right side (principal); Z87.891 Personal history of nicotine dependence
CPT/HCPCS: 72100; 96372; 96374; 99284; J1885; J2919

== ENCOUNTER 2025-06-30 16:45 | Outpatient (CLI) | payer OTHER, SELFPAY ==
--- NOTE | ~2025-06-30 | XR_ITS ---
EXAMINATION: XR hip LT min 2V DATE: 06/30/2025 17:05 INDICATION: Left hip pain. No known trauma. TECHNIQUE: 2 views of left hip were obtained. COMPARISON: None. FINDINGS: No acute bony lesions of left hip. Joint space is normal. 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 IMPRESSION: 1. Normal radiographic findings at the left hip. Moderate osteoarthritis of left SI joint. Reviewed, dictated and finalized at location T. S DESIGNER IMPRESSION: 1. Normal radiographic findings at the left hip. Moderate osteoarthritis of lef t SI joint.
== END 2025-06-30 16:46 | disposition home or self-care (01) ==
LOC: CHSIMG 16:47
PROVIDERS: PCP Family Medicine; Visit Provider Family Medicine
DX: M25.552 Pain in left hip (principal); M47.898 Other spondylosis, sacral and sacrococcygeal region
CPT/HCPCS: 73502